=== PATIENT | female | born 1970 | race Caucasian/White ===

== ENCOUNTER 2017-05-11 16:59 | Inpatient (IN) | payer OTHER ==
[~2017-05-11] VITALS: Ht 165.1 cm; Wt 58.7 kg
[~2017-05-11 16:59] MED LIST: DOCU-144 PO; HYDR25SU23 PR; LEVO750T25 PO; Nicotine (14 Mg/24 Hr) TRANSDERM; THIA100T10 PO
[2017-05-11 20:40] VITALS: BP 139/85; PULSE 81; RESP 20
[2017-05-11 21:12] VITALS: Ht 165.1 cm; Wt 58.7 kg
[2017-05-11 22:14] VITALS: BP 139/85; RESP 20
[2017-05-11] MEDS ORDERED: LORAZEPAM 2 MG INJ IV PRN (22:30)
[2017-05-11] MEDS ORDERED: morphine 10 MG INJ IM PRN (22:30)
[2017-05-11] MEDS ORDERED: ONDANSETRON 4 MG INJ IV PRN (22:30)
[2017-05-11] MEDS: SOD CHLORIDE 0.9% 1,000 ML IV SCH (22:45)
[2017-05-12] MEDS ORDERED: NACL 0.9% 3 ML SYG IV SCH
[2017-05-12 01:42] LABS: ADD SCAN DIFF NO
[2017-05-12 01:45] LABS: BASOPHIL # 0.1 10^3/ul (0.0-0.1); BASOPHILS % 0.7 % (0.0-2.0); EOSINOPHILS # 0.3 10^3/ul (0.0-0.5); EOSINOPHILS % 3.4 % (0.0-7.0); HEMATOCRIT 28.5 % (37.0-47.0); HEMOGLOBIN 8.4 g/dl (12.0-16.0); LYMPHOCYTES # 1.8 10^3/ul (0.8-2.9); LYMPHOCYTES % 24.1 % (15.0-51.0); MEAN CORPUSCULAR HEMOGLOBIN 23.2 pg (29.0-33.0); MEAN CORPUSCULAR HGB CONC 29.5 g/dl (32.0-37.0); MEAN CORPUSCULAR VOLUME 78.7 fl (82.0-101.0); MEAN PLATELET VOLUME 9.9 fl (7.4-10.4); MONOCYTE # 0.4 10^3/ul (0.3-0.9); NEUTROPHILS % 66.5 % (39.0-77.0); PLATELET COUNT 245 10^3/UL (140-415); RED BLOOD COUNT 3.62 10^6/ul (4.20-5.40); RED CELL DISTRIBUTION WIDTH 21.4 % (11.5-14.5); WHITE BLOOD COUNT 7.5 10^3/ul (4.8-10.8)
[2017-05-12 02:13] LABS: ALBUMIN 3.6 g/dl (3.3-4.9); ALBUMIN/GLOBULIN RATIO 1.71; BILIRUBIN,INDIRECT 0.8 mg/dl (0-1.1); BILIRUBIN,TOTAL 0.8 mg/dl (0.2-1.3); CREATININE 0.58 mg/dl (0.44-1.00); POTASSIUM 3.8 mmol/L (3.5-5.1); TOTAL PROTEIN 5.7 g/dl (6.1-8.1)
[2017-05-12] MEDS: PANTOPRAZOLE 40 MG INJ IV SCH (05:07)
[2017-05-12] MEDS: SOD CHLORIDE 0.9% 1,000 ML IV SCH ×3 (05:08→18:30)
--- NOTE | 2017-05-12 05:21 | HP ---
Date/Time of Note Date/Time of Note DATE: 05/12/17 TIME: 05:05 Assessment/Plan VTE Prophylaxis VTE Prophylaxis Intervention: SCD's Lines/Catheters IV Catheter Type (from [facility]): Saline Lock Urinary Cath still in place: No Assessment/Plan Chief Complaint/Hosp Course This is a 46-year-old female [facility] for: #1 Acute pancreatitis: Patient had a lipase level of approximately 200, AST of 56 ALT of 45. With an ethanol level of 41. At the current time patient is still complaining of abdominal pain. We will keep the patient n.p.o. provide IV fluid hydration. Provide IV pain medications. #2 alcohol abuse: Currently patient has blood alcohol level of 41. We will put the patient on banana bag daily. Ativan 1 mg IV every 6 hours as needed for agitation. Will start Librium taper. Patient also has transaminitis on lab work. Will also check a liver ultrasound. #3 urinary tract infection: started on ceftriaxone however will switch to cipro IV secondary to pancreatitis. #4 microcytic anemia: Likely secondary to poor nutrition as well as possibly chronic disease. Will check iron level. Will check a stool guaiac. #5 emphysema: Patient has an extensive history of smoking. Will put patient on nicotine patch. #6 DVT GI prophylaxis: SCDs, Protonix Further treatment strategy will be implemented as per the clinical course. Problems: HPI/ROS Admit Date/Time Admit Date/Time May 11, 2017 at 20:33 Hx of Present Illness Chief complaint: Abdominal pain This is a 46 year female who was transferred from [facility] for pancreatitis and alcohol abuse. She is a past medical history of acquired deafness, chronic drug abuse, emphysema, EtOH abuse and pancreatitis. She presented to the ED at [facility] complaining of nausea vomiting abdominal pain after she had drank beer in the past 5 days. She was advised in the past not to drink alcohol and has been treated for pink otitis in the past. She reports experience in bilateral lower abdominal pain since yesterday evening constant nonradiating with no modifying or exacerbating factors. She reports every time she drinks she feels as though her insides are on fire. The symptoms are very similar to when she had in the past. When she was diagnosed pink otitis. She denied any fever chills cough congestion runny nose or diarrhea. Denied any melena denied weakness or numbness or tingling. Upon arriving to [facility], patient on my exam was still complaining of abdominal pain though she stated it did improve from earlier. She was asking for something to eat. Allergies: Apples, aspirin, haloperidol Medications: See VARGAS CHRISTINE Const: As per HPI Eyes : No pain discharge or redness or change in visual acuity ENT: No pain, sore throat, congestion, congestion, dysphagia or discharge Respiratory: No shortness of breath, cough, sputum, wheezing, or pleuritic pain Cardiovascular: No chest pain, palpitation, PND, or edema GI : As per HPI Genitourinary: No dysuria, hematuria, flank pain , discharge or CVA tenderness Musculoskeletal: No joint pain, back pain, neck pain, restricted range of motion in neck or joints Skin: No rash, bruising or hives Neuro: No headache, dizziness, syncope, seizure, focal weakness Endocrine: No polyuria, polydipsia, temperature intolerance Psych: No hallucination, depression, anxiety or suicidal ideation PMH/Family/Social Past Medical History Acquired deafness, chronic drug abuse, emphysema, alcohol abuse, pink otitis Past Surgical History Past Surgical Hx: no surgical history Family History Significant Family History: no pertinent family hx Social History Alcohol Use: heavy Smoking Status: Current every day smoker (2 packs per day 9 years) Exam/Review of Systems Vital Signs Vitals Vital Signs Date Time Temp Pulse Resp B/P Pulse Ox O2 Delivery O2 Flow Rate FiO2 05/11/17 22:14 98.4 81 20 139/85 92 05/11/17 20:40 Room Air Exam Exam General: Patient is well-developed female in mild distress from pain laying in bed. HEENT: Atraumatic, normocephalic. The pupils are equal, round and reactive. Extraocular motor are intact Neck: Supple with full range of motion. No rigidity or meningismus Chest: Nontender Lungs: Clear to auscultation bilaterally no crackles rales or wheezing Heart: Normal S1-S2, Regular rhythm and rate. No murmur, S3, or S4 Abdomen: Soft, tenderness to the epigastric area, normal bowel sounds Extremities: Normal to inspection, no edema no cyanosis Neurologic: Normal mental status, speech normal, patient is hard of hearing secondary to her deafness, she does not appear to be in any sort of alcohol withdrawal or DTS at this time. Additional Comments lipase level of approximately 200, AST of 56 ALT of 45. Ethanol level of 41. Nitrite and leukoesterase positive Hemoglobin of 10 with an MCV of 74. Urine drug screen was negative for cannabinoids cocaine and PCP please see transfer recommendation for further lab results and Other medical information Labs Result Diagram: 05/12/173105/12/17 003 Medications Medications Current Medications Morphine Sulfate 2 mg 2 mg Q4H PRN IM FOR PAIN; Start 05/11/17 at 22:30 Sodium Chloride (NS) 1,000 ml @ 150 mls/hr Q6H40M IV Last administered on 05/11t 22:45; Admin Dose 150 MLS/HR; Start 05/11/17 at 22:30 Lorazepam (Ativan) 1 mg Q4H PRN IV FOR AGITATION; Start 05/11/17 at 22:30 Ondansetron HCl 4 mg 4 mg Q6H PRN IV NAUSEA AND/OR VOMITING; Start 05/11/17 at 22:30 Multivitamins/ Thiamine HCl/ Folic Acid/Sodium Chloride (Mvi Adult/ Vitamin B1/ Folic Acid/NS) 1,011.2 ml @ 125 mls/ hr DAILY@09 IVPB ; Start 05/12/17 at 09:00 Pantoprazole (Protonix Iv) 40 mg DAILY@06 IV ; Start 05/12/17 at 06:00 REYNA RUSHING May 12, 2017 05:19
[2017-05-12] MEDS ORDERED: CEFTRIAXONE 1 GM/50 ML (PMX) 50 ML IVPB SCH (05:30)
[2017-05-12 06:42] LABS: ADD SCAN DIFF NO
[2017-05-12 06:48] LABS: BASOPHIL # 0.1 10^3/ul (0.0-0.1); BASOPHILS % 0.8 % (0.0-2.0); EOSINOPHILS # 0.3 10^3/ul (0.0-0.5); HEMATOCRIT 27.8 % (37.0-47.0); HEMOGLOBIN 8.3 g/dl (12.0-16.0); LYMPHOCYTES # 1.5 10^3/ul (0.8-2.9); LYMPHOCYTES % 22.2 % (15.0-51.0); MEAN CORPUSCULAR HEMOGLOBIN 23.2 pg (29.0-33.0); MEAN CORPUSCULAR HGB CONC 29.9 g/dl (32.0-37.0); MEAN CORPUSCULAR VOLUME 77.7 fl (82.0-101.0); MONOCYTE # 0.3 10^3/ul (0.3-0.9); MONOCYTES % 4.7 % (0.0-11.0); NEUTROPHIL # 4.5 10^3/ul (1.6-7.5); PLATELET COUNT 237 10^3/UL (140-415); RED BLOOD COUNT 3.58 10^6/ul (4.20-5.40); RED CELL DISTRIBUTION WIDTH 21.8 % (11.5-14.5); WHITE BLOOD COUNT 6.5 10^3/ul (4.8-10.8)
[2017-05-12] MEDS ORDERED: morphine 2 MG INJ IV PRN (07:00)
[2017-05-12 07:03] LABS: IRON 198 ug/dl (35-150)
[2017-05-12 07:07] LABS: ALBUMIN 3.5 g/dl (3.3-4.9); ALBUMIN/GLOBULIN RATIO 1.59; BILIRUBIN,INDIRECT 0.7 mg/dl (0-1.1); BILIRUBIN,TOTAL 0.7 mg/dl (0.2-1.3); CALCIUM 7.4 mg/dl (8.4-10.2); CHOL/HDL RATIO 1.4 RATIO; CREATININE 0.59 mg/dl (0.44-1.00); POTASSIUM 3.3 mmol/L (3.5-5.1); TOTAL PROTEIN 5.7 g/dl (6.1-8.1)
[2017-05-12 07:13] LABS: TOTAL IRON BINDING CAPACITY 308 ug/dl (241-421)
[2017-05-12 07:21] LABS: T3 UPTAKE 39.2 % (23.5-40.5)
[2017-05-12 07:35] LABS: THYROID STIMULATING HORMONE 2.77 MIU/L (0.465-4.680)
[2017-05-12 07:51] LABS: ETHANOL < 10.0 mg/dl
[2017-05-12 07:55] VITALS: BP 121/76; RESP 18
[2017-05-12] MEDS: MULTIVITAMINS 10 ML, THIAMINE 100 MG, FOLIC ACID 1 MG in SOD CHLORIDE 0.9% 1,000 ML IVPB SCH (08:57)
[2017-05-12] MEDS: CHLORDIAZEPOXIDE 25 MG CAP PO SCH ×3 (09:09→21:46)
--- NOTE | 2017-05-12 09:13 | PN ---
Date/Time of Note Date/Time of Note DATE: 05/12/17 TIME: 09:11 Assessment/Plan VTE Prophylaxis VTE Prophylaxis Intervention: SCD's Lines/Catheters IV Catheter Type (from [facility]): Peripheral IV Urinary Cath still in place: No Assessment/Plan Assessment/Plan This is a 46-year-old female transferred from outside with #1 Acute alcoholic pancreatitis: improved / lipase normal now #2 alcohol abuse/ transaminitis: cessation reviewed #3 urinary tract infection #4 microcytic anemia: Likely secondary to poor nutrition as well as possibly chronic disease. #5 emphysema: Patient has an extensive history of smoking. Patient on nicotine patch. PLAN: * patient's pain is likely exaggerated, the fact that she's hungry is consistent with improving pancreatitis, will advance diet gently to clears * continue to reinforce alcohol cessation in house * Continue supportive care / abx Further treatment strategy will be implemented as per the clinical course. Subjective 24 Hr Interval Summary Free Text/Dictation Patient seen and examined. was sleeping deeply and when aroused c/o pain 07/11, yet asking to eat Exam/Review of Systems Vital Signs Vitals Vital Signs Date Time Temp Pulse Resp B/P Pulse Ox O2 Delivery O2 Flow Rate FiO2 05/12/17 07:55 98.7 63 18 121/76 97 05/11/17 20:40 Room Air Intake and Output 05/11/17 05/11/17 05/12/17 15:00 23:00 07:00 Intake Total 1440 ml Balance 1440 ml Exam Constitutional: alert, oriented Psych: nl mood/affect Head: atraumatic, normocephalic ENMT: mucosa pink and moist Neck: supple Respiratory: clear to auscultation Cardiovascular: nl pulses, regular rate and rhythm Gastrointestinal: bowel sounds, soft, tender (?, non localized) Neurological: nl mental status, No focal weakness Results Result Diagram: 05/12/17 0610 05/12/17 0610 Results 24 hrs Laboratory Tests Test 05/12/17 00:32 05/12/17 06:10 White Blood Count 7.5 # 6.5 Red Blood Count 3.62 L 3.58 L Hemoglobin 8.4 L 8.3 L Hematocrit 28.5 L 27.8 L Mean Corpuscular Volume 78.7 L 77.7 L Mean Corpuscular Hemoglobin 23.2 L 23.2 L Mean Corpuscular Hemoglobin Concent 29.5 L 29.9 L Red Cell Distribution Width 21.4 H 21.8 H Platelet Count 245 237 Mean Platelet Volume 9.9 10.0 Neutrophils % 66.5 68.0 Lymphocytes % 24.1 22.2 Monocytes % 5.0 4.7 Eosinophils % 3.4 4.0 Basophils % 0.7 0.8 Nucleated Red Blood Cells % 0.0 0.0 Neutrophils # 5.0 4.5 Lymphocytes # 1.8 1.5 Monocytes # 0.4 0.3 Eosinophils # 0.3 0.3 Basophils # 0.1 0.1 Nucleated Red Blood Cells # 0.0 0.0 Sodium Level 130 L 133 L Potassium Level 3.8 3.3 L Chloride Level 103 106 Carbon Dioxide Level 26 24 Anion Gap 5 L 6 L Blood Urea Nitrogen 7 6 L Creatinine 0.58 0.59 Glucose Level 64 L 75 Calcium Level 8.0 L 7.4 L Total Bilirubin 0.8 0.7 Direct Bilirubin 0.00 0.00 Indirect Bilirubin 0.8 0.7 Aspartate Amino Transf (AST/SGOT) 38 36 Alanine Aminotransferase (ALT/SGPT) 33 38 Alkaline Phosphatase 53 52 Total Protein 5.7 L 5.7 L Albumin 3.6 3.5 Globulin 2.10 2.20 Albumin/Globulin Ratio 1.71 1.59 Lipase 106 79 Hemoglobin A1c 5.1 Iron Level 198 H Total Iron Binding Capacity 308 Percent Iron Saturation 64 H Ferritin 11.5 Triglycerides Level 53 Cholesterol Level 127 LDL Cholesterol, Calculated 27 HDL Cholesterol 89 H Cholesterol/HDL Ratio 1.4 Thyroid Stimulating Hormone (TSH) 2.770 Free Thyroxine Index 2.47 Thyroxine (T4) 6.3 Triiodothyronine (T3) Uptake 39.2 Ethyl Alcohol Level < 10.0 Medications Medications Current Medications Sodium Chloride (NS) 1,000 ml @ 150 mls/hr Q6H40M IV Last administered on 05/12 05:08; Admin Dose 150 MLS/HR; Start 05/11/17 at 22:30 Lorazepam (Ativan) 1 mg Q4H PRN IV FOR AGITATION; Start 05/11/17 at 22:30 Ondansetron HCl 4 mg 4 mg Q6H PRN IV NAUSEA AND/OR VOMITING; Start 05/11/17 at 22:30 Multivitamins/ Thiamine HCl/ Folic Acid/Sodium Chloride (Mvi Adult/ Vitamin B1/ Folic Acid/NS) 1,011.2 ml @ 125 mls/ hr DAILY@09 IVPB Last administered on 08:57; Admin Dose 125 MLS/HR; Start 05/12/17 at 09:00 Pantoprazole 40 mg 40 mg DAILY@06 IV Last administered on 05/12/17 05:07; Admin Dose 40 MG; Start 05/12/17 at 06:00 Ceftriaxone Sodium (Rocephin) 50 ml @ 100 mls/hr Q24H IVPB Last administered on 05/12/17 05:37; Admin Dose 100 MLS/HR; Start 05/12/17 at 05:30 Morphine Sulfate (morphine) 2 mg Q4H PRN IV FOR PAIN; Start 05/12/17 at 07:00 Chlordiazepoxide (Librium) 50 mg TID PO ; Start 05/12/17 at 09:00; Stop at 21:01 Chlordiazepoxide (Librium) 25 mg QID PO ; Start 05/13/17 at 09:00; Stop at 21:01 Chlordiazepoxide (Librium) 25 mg TID PO ; Start 05/14/17 at 09:00 BONNIE STARK May 12, 2017 09:13
--- NOTE | 2017-05-12 10:07 | RADRPT ---
PROCEDURE: US Abdomen (right upper quadrant). CLINICAL INDICATION: Elevated LFTs. Only views. TECHNIQUE: Multiple real-time longitudinal and transverse images of the right upper quadrant of th e abdomen were acquired utilizing a curved array transducer. Images were reviewed on a high-resoluti on PACS workstation. COMPARISON: None FINDINGS: The liver is normal in size and slightly increased echogenicity without focal mass or intrahepatic b iliary dilatation. There is trace ascites. Portal vein is patent with appropriate direction of flow . The gallbladder is remarkable for multiple no mobile echogenic foci along the gallbladder wall in keeping with gallbladder polyps. The largest measures up to 0.4 cm. There is no pericholecystic fl uid or gallbladder wall thickening or gallstones. No intra or extrahepatic biliary dilatation is se en. The common bile duct measures 3 mm mm in maximal dimension. The visualized portions of the simpson creas are unremarkable with obscuration of the tail of the pancreas. No free fluid is identified. The right kidney measures 10.3 cm in length. There is normal echogenicity within the right kidney. There is no perinephric fluid collection. No hydronephrosis, mass, or calculus is seen. IMPRESSION: 1. Mild fatty infiltration of the liver. 2. Multiple small gallbladder polyps. 3. No intrahepatic or extrahepatic biliary ductal dilatation. 4. Trace perihepatic fluid. RPTAT: BB .Maik Gagnon MD, Date Time Electronically viewed and signed by .Maik Gagnon MD, on 05/12/2017 10:07 .O/
[2017-05-12] MEDS ORDERED: POTASSIUM CHLORIDE 250 ML IVPB ONE (10:30)
[2017-05-12] MEDS ORDERED: MAGNESIUM SULFATE 2 GM/50 ML 50 ML IVPB ONE (17:00)
[2017-05-12 20:00] VITALS: BP 142/63; PULSE 64; RESP 18
[2017-05-12 20:50] VITALS: BP 115/73; RESP 18
[2017-05-12] MEDS: CIPROFLOXACIN 400MG/D5W 200 ML IVPB SCH (22:06)
[2017-05-13] MEDS: SOD CHLORIDE 0.9% 1,000 ML IV SCH ×2 (01:10→03:32)
[2017-05-13 02:00] VITALS: BP 107/65; PULSE 76; RESP 19
[2017-05-13 02:18] VITALS: BP 131/65; RESP 18
[2017-05-13 05:18] LABS: ADD SCAN DIFF NO
[2017-05-13 05:22] LABS: BASOPHILS % 0.7 % (0.0-2.0); EOSINOPHILS # 0.4 10^3/ul (0.0-0.5); EOSINOPHILS % 5.9 % (0.0-7.0); HEMATOCRIT 30.5 % (37.0-47.0); LYMPHOCYTES # 1.6 10^3/ul (0.8-2.9); LYMPHOCYTES % 27.4 % (15.0-51.0); MEAN CORPUSCULAR HEMOGLOBIN 23.3 pg (29.0-33.0); MEAN CORPUSCULAR HGB CONC 29.5 g/dl (32.0-37.0); MEAN PLATELET VOLUME 9.8 fl (7.4-10.4); MONOCYTE # 0.3 10^3/ul (0.3-0.9); MONOCYTES % 4.8 % (0.0-11.0); NEUTROPHIL # 3.7 10^3/ul (1.6-7.5); PLATELET COUNT 228 10^3/UL (140-415); RED BLOOD COUNT 3.86 10^6/ul (4.20-5.40); RED CELL DISTRIBUTION WIDTH 21.6 % (11.5-14.5)
[2017-05-13] MEDS: PANTOPRAZOLE 40 MG INJ IV SCH (06:07)
[2017-05-13 06:17] LABS: ALBUMIN 3.5 g/dl (3.3-4.9); ALBUMIN/GLOBULIN RATIO 1.59; BILIRUBIN,INDIRECT 0.1 mg/dl (0-1.1); BILIRUBIN,TOTAL 0.1 mg/dl (0.2-1.3); CALCIUM 7.8 mg/dl (8.4-10.2); CREATININE 0.57 mg/dl (0.44-1.00); MAGNESIUM 1.9 mg/dl (1.7-2.5); POTASSIUM 3.4 mmol/L (3.5-5.1); TOTAL PROTEIN 5.7 g/dl (6.1-8.1)
[2017-05-13 07:59] VITALS: BP 126/65; RESP 18
[2017-05-13] MEDS: CIPROFLOXACIN 400MG/D5W 200 ML IVPB SCH (08:47)
[2017-05-13] MEDS ORDERED: CHLORDIAZEPOXIDE 25 MG CAP PO SCH (09:00)
[2017-05-13] MEDS: MULTIVITAMINS 10 ML, THIAMINE 100 MG, FOLIC ACID 1 MG in SOD CHLORIDE 0.9% 1,000 ML IVPB SCH (10:18)
[2017-05-13] MEDS ORDERED: FOLI-49 PO (11:21)
[2017-05-13] MEDS ORDERED: MULTI PO (11:21)
[2017-05-13] MEDS ORDERED: CIPR500T4 PO (11:21)
[2017-05-13] MEDS ORDERED: MAGNESIUM SULFATE 1 GM/D5W 100 ML IVPB ONE (12:30)
[2017-05-13] MEDS ORDERED: POTASSIUM CHLORIDE 250 ML IVPB ONE (12:30)
[2017-05-13] MEDS ORDERED: POTASSIUM CHLORIDE (SR) 20 MEQ TAB PO STA (12:39)
--- NOTE | 2017-05-13 12:47 | PDOCDIS ---
Discharge Instructions DIAGNOSIS Discharge Diagnosis Alcoholic pancreatitis UTI CONDITION Patient Condition: Stable HOME CARE INSTRUCTIONS: Special Diet: Soft Diet FOLLOW UP/APPOINTMENTS Follow-up Plan Followup with your primary doctor within the next 1-2 weeks. If you don't have one please let someone know, we can give you resources that may help you pick one. You may call Dr Raymond Vazquez's office. he's accepting new patients Name, Degree: Raymond Vazquez MD Specialty: Internal Medicine Comments: Office Address: [address] [place] [address] [place] [id number] Office Office You may also call your insurance company to assign one to you. Review your medication list with your nurse before leaving and if you need new prescriptions please let your nurse know. I may have made changes to your home medications or given you new prescriptions, please let your primary doctor know as well. Stay compliant with your medications and report any side effects to your PCP or pharmacist. Return to the ER if you have any concerns and cannot reach your doctors or call your insurance company, they usually have a nurse that can help you. OTHER ORDERS: Other Orders: You CANNOT drink any more alcohol. If you have already stopped, Good for you!!! . It is however an ongoing process. Further alcohol use will only worsen you pancreas and / or your liver. You should have been given resources to help you with quitting alcohol, if not please let someone know before you leave. Please use these resources and contact us or your PCP if you still have questions or concerns. BONNIE STARK May 13, 2017 12:47
[2017-05-13] MEDS ORDERED: MAGNESIUM OXIDE 400 MG TAB PO ONE (13:00)
--- NOTE | 2017-05-13 15:40 | DS ---
Date/Time of Note Date/Time of Note DATE: 05/13/17 TIME: 15:29 Discharge Summary Admission/Discharge Info Admit Date/Time May 11, 2017 at 20:33 Discharge Date/Time May 13, 2017 at 13:15 Discharge Diagnosis Alcoholic pancreatitis UTI Alcohol and tobacco abuse [place] COPD / Emphysema Hypochromic Microcytic anemia without Iron deficiency likely 2/2 poor nutrition . Patient Condition: Stable Hx of Present Illness Chief complaint: Abdominal pain This is a 46 year female who was transferred from [facility] for pancreatitis and alcohol abuse. She is a past medical history of acquired deafness, chronic drug abuse, emphysema, EtOH abuse and pancreatitis. She presented to the ED at [facility] complaining of nausea vomiting abdominal pain after she had drank beer in the past 5 days. She was advised in the past not to drink alcohol and has been treated for pink otitis in the past. She reports experience in bilateral lower abdominal pain since yesterday evening constant nonradiating with no modifying or exacerbating factors. She reports every time she drinks she feels as though her insides are on fire. The symptoms are very similar to when she had in the past. When she was diagnosed pancreatitis. She denied any fever chills cough congestion runny nose or diarrhea. Denied any melena denied weakness or numbness or tingling. Upon arriving to [facility], patient on my exam was still complaining of abdominal pain though she stated it did improve from earlier. She was asking for something to eat. Allergies: Apples, aspirin, haloperidol Medications: See MAR . Hospital Course Patient was admitted and treated for pancreatitis with IVF , pain control and NPO. She did well and her diet was advanced slowly and she is currently tolerating a soft diet. She was also found to have a UTI and treated with antibiotics. She was counselled on the dangers of continued alcohol and tobacco use and provided with resources to help with cessation. She has been found to be stable for discharge at this time. . Home Meds Active Scripts Ciprofloxacin Hcl* (Ciprofloxacin Hcl*) 500 Mg Tablet, 500 MG PO BID for 3 Days , TAB Prov:BONNIE STARK. 05/13/17 Folic Acid* (Folic Acid*) 1 Mg Tablet, 1 MG PO DAILY for 30 Days, TAB Prov:BONNIE STARK. 05/13/17 Multivitamins* (Theragran*) 1 Tab Tab, 1 TAB PO DAILY for 30 Days, TAB Prov:BONNIE STARK 05/13/17 Thiamine* (Thiamine*) 100 Mg Tablet, 100 MG PO DAILY for 30 Days, #30 TAB 6 Refills Prov:JAVON CAMILO MD 10/31/16 [Nicotine (14 Mg/24 Hr)] 1 PATCH PATCH No Conflict Check, 1 PATCH TRANSDERM DAILY for 1 Day, #1 3 Refills OTC; as needed for nicotine withdrawal Prov:JAVON CAMILO MD 10/31/16 Discontinued Scripts Hydrocortisone Acetate (Anusol-Hc) 25 Mg Supp.rect, 25 MG OR BID Y for CONSTIPATION for 10 Days, #10 SUPP.RECT 4 Refills Prov:JAVON CAMILO MD 10/31/16 Docusate Sodium* (Colace*) 100 Mg Capsule, 100 MG PO BID for 14 Days, #30 CAP 3 Refills Prov:JAVON CAMILO MD 10/31/16 Levofloxacin* (Levaquin*) 750 Mg Tablet, 750 MG PO DAILY for 5 Days, TAB Prov:ELINOR DAVENPORT 05/13/16 Follow-up Plan Patient is counselled to f/u with PCP to ensure continued resolution of symptoms and continued help with alcohol and tobacco abuse. . Primary Care Provider Not On Staff Doctor Time spent on discharge: > 30 minutes Pending Labs Laboratory Tests Test 05/13/17 04:53 White Blood Count 6.010^3/ul (4.8-10.8) Red Blood Count 3.8610^6/ul (4.20-5.40) Hemoglobin 9.0g/dl (12.0-16.0) Hematocrit 30.5% (37.0-47.0) Mean Corpuscular Volume 79.0fl (82.0-101.0) Mean Corpuscular Hemoglobin 23.3pg (29.0-33.0) Mean Corpuscular Hemoglobin Concent 29.5g/dl (32.0-37.0) Red Cell Distribution Width 21.6% (11.5-14.5) Platelet Count 97062^3/UL (140-415) Mean Platelet Volume 9.8fl (7.4-10.4) Neutrophils % 61.0% (39.0-77.0) Lymphocytes % 27.4% (15.0-51.0) Monocytes % 4.8% (0.0-11.0) Eosinophils % 5.9% (0.0-7.0) Basophils % 0.7% (0.0-2.0) Nucleated Red Blood Cells % 0.0/100WBC (0.0-0.0) Neutrophils # 3.710^3/ul (1.6-7.5) Lymphocytes # 1.610^3/ul (0.8-2.9) Monocytes # 0.310^3/ul (0.3-0.9) Eosinophils # 0.410^3/ul (0.0-0.5) Basophils # 0.010^3/ul (0.0-0.1) Nucleated Red Blood Cells # 0.010^3/ul (0.0-0.0) Sodium Level 133mmol/L (135-144) Potassium Level 3.4mmol/L (3.5-5.1) Chloride Level 109mmol/L (97-110) Carbon Dioxide Level 24mmol/L (21-31) Anion Gap 3 (8-16) Blood Urea Nitrogen 3mg/dl (7-20) Creatinine 0.57mg/dl (0.44-1.00) Glucose Level 84mg/dl (70-220) Calcium Level 7.8mg/dl (8.4-10.2) Magnesium Level 1.9mg/dl (1.7-2.5) Total Bilirubin 0.1mg/dl (0.2-1.3) Direct Bilirubin 0.00mg/dl (0.00-0.20) Indirect Bilirubin 0.1mg/dl (0-1.1) Aspartate Amino Transf (AST/SGOT) 30IU/L (15-46) Alanine Aminotransferase (ALT/SGPT) 35IU/L (13-69) Alkaline Phosphatase 53IU/L (42-121) Total Protein 5.7g/dl (6.1-8.1) Albumin 3.5g/dl (3.3-4.9) Globulin 2.20g/dl (1.3-3.2) Albumin/Globulin Ratio 1.59 BONNIE STARK May 13, 2017 15:40
[2017-05-14] MEDS ORDERED: CHLORDIAZEPOXIDE 25 MG CAP PO SCH (09:00)
== END 2017-05-13 13:15 | disposition home or self-care (01) | DRG 439 ==
LOC: MS2 20:33
PROVIDERS: ADMIT Internal Medicine; ATTEND Internal Medicine
DX: K85.20 Alcohol induced acute pancreatitis without necrosis or infection (principal); N39.0 Urinary tract infection, site not specified; J43.9 Emphysema, unspecified; F10.10 Alcohol abuse, uncomplicated; D53.9 Nutritional anemia, unspecified; H91.90 Unspecified hearing loss, unspecified ear; Z72.0 Tobacco use; Y90.2 Blood alcohol level of 40-59 mg/100 ml
CPT/HCPCS: 76705; 80053; 80061; 80306; 82728; 83036; 83540; 83690; 83735; 84436; 84443; 84466; 84479; 85025; 87081; C9113; J0696; J0744; J2270; J3411; J3475; J3480; J7030

== ENCOUNTER 2018-03-08 21:56 | Inpatient (IN) | END 2018-03-11 16:03 | disposition home or self-care (01) | DRG 603 ==

== ENCOUNTER 2018-03-30 07:14 | Emergency (ER) | END 2018-03-30 09:41 | disposition home or self-care (01) ==

== ENCOUNTER 2019-02-11 22:09 | Inpatient (IN) | payer OTHER ==
[~2019-02-11] VITALS: Ht 165.1 cm; Wt 46.9 kg
[2019-02-12] VITALS (11 sets, daily range): BP systolic 101–131; BP diastolic 62–89; PULSE 60–84; RESP 17–19; Ht 165.1 cm; Wt 46.9 kg
[2019-02-12] MEDS ORDERED: ALBUTEROL/IPRATROPIUM (NEB) 3 ML AMP HHN PRN (02:30)
[2019-02-12] MEDS ORDERED: ONDANSETRON 4 MG INJ IV PRN (02:30)
[2019-02-12] MEDS ORDERED: NACL 0.9% 3 ML SYG IV SCH (02:30)
[2019-02-12] MEDS ORDERED: NITROGLYCERIN (SL) 0.4 MG TAB SL PRN (02:30)
[2019-02-12] MEDS ORDERED: METHYLPREDNISOLONE 125 MG INJ IV ONE (02:30)
[2019-02-12] MEDS ORDERED: ACETAMINOPHEN 325 MG TAB PO PRN (02:30)
[2019-02-12] MEDS: HYDROCODONE/APAP (5/325) TAB PO PRN ×2 (02:31→19:08)
--- NOTE | 2019-02-12 04:59 | HP ---
Date/Time of Note Date/Time of Note DATE: 02/12/19 TIME: 04:47 Assessment/Plan VTE Prophylaxis SCD contraindicated: low risk/ambulating Pharmacological prophylaxis: NA/contraindicated Pharm contraindication: bleeding, other (Patient reported hematemesis and b loody stool) Assessment/Plan Assessment/Plan 1. COPD exacerbation -Supplemental oxygen, bronchodilators, steroid -Antibiotic for a few days given reported cough productive of greenish sputum -Respiratory culture -Obtain chest x-ray 2. Syncope -Obtain EKG and a 2D echo -On a net application architect, which shows PACs -Serial troponins -See #3 for a possible cause of syncope 3. Hematemesis x 1 and bloody stools. -EGD in 2017 shows moderate gastritis and esophagitis -PPI -GI consult 4. Chest pain: Only associated with coughing -Troponin was negative at the outside facility -See #2 5. Deafness: Supportive care HPI/ROS Admit Date/Time Admit Date/Time Feb 12, 2019 at 00:19 Hx of Present Illness This is a 48-year-old female who has been completely deaf for the past 5 years, with a history of COPD, moderate gastritis/esophagitis, moderate mitral regurg, previous history of alcohol abuse who initially presented to an outside hospital complaining of cough, shortness of breath, chest pain, vomiting, dizziness and fainting. Patient was transferred to [facility] for insurance reason. Chest pain only occurs when she coughs. She also reported that she has been feeling dizzy and have been occasionally passing out. On further questioning, she said she has been vomiting and then noticed bright red blood yesterday. She also reported bloody stool. Patient had an EGD in November 2016 which showed moderate gastritis and esophagitis. She said that she was told about colonoscopy, but she never had it. At the outside facility, troponin was negative and EKG without ST-T wave abnormalities. Hemoglobin was 9.6. PMH/Family/Social Past Medical History Medical History: other (See HPI) Medications Current Medications IV Flush (NS 3 ml) 3 ml PER PROTOCOL IV ; Start 02/12/19 at 02:30 Ondansetron HCl (Zofran Inj) 4 mg Q6H PRN IV NAUSEA/VOMITING; Start 02/12/19 at 02:30 Nitroglycerin (Nitroglycerin (Sl Tab) 0.4 Mg) 1 tab Q5M PRN SL .CHEST PAIN; Start 02/12/19 at 02:30 Acetaminophen (Tylenol Tab) 650 mg Q6H PRN PO .PAIN 1-3 OR TEMP; Start 02/12/19 at 02:30 Acetaminophen/ Hydrocodone Bitart (Celeste (5/325)) 1 tab Q6H PRN PO .PAIN 4-6 Last administered on 02/12/19at 02:31; Admin Dose 1 TAB; Start 02/12/19 at 02:30 Albuterol/ Ipratropium (Duoneb) 3 ml Q2H RESP THERAPY PRN HHN SHORTNESS OF BREATH; Start 02/12/19 at 02:30 Pantoprazole (Protonix Iv) 40 mg BID@06,18 IV ; Start 02/12/19 at 06:00 Coded Allergies: Iodinated Contrast- Oral and IV Dye (Verified Allergy, Severe, SOB, 02/12/19) apple (Verified Allergy, Severe, ANALPHYLAXIS, 03/30/18) aspirin (Verified Allergy, Severe, RESP DISTRESS "IT ALMOST KILLED ME", 03/30/18) haloperidol (Verified Allergy, Intermediate, 03/30/18) Past Surgical History Past Surgical Hx: other (See HPI) Family History Significant Family History: no pertinent family hx Social History Alcohol Use: other (Used to drink heavily in the past, now occasionally) Smoking Status: Current every day smoker Drug Use: none Exam/Review of Systems Vital Signs Vitals Vital Signs Date Temp Pulse Resp B/P (MAP) Pulse Ox O2 O2 Flow FiO2 Time Delivery Rate 02/12/19 67 04:36 02/12/19 98.2 17 131/71 96 03:59 (91) Exam Constitutional: other (No acute distress. Patient is deaf, but able to communicate with writing. She is also good at reading lips) Head: normocephalic, atraumatic Eyes: PERRL ENMT: other (There is a small lesion on the chin) Respiratory: clear to auscultation, normal air movement Cardiovascular: regular rate and rhythm Gastrointestinal: soft, other (Minimal tenderness in the epigastric area. No guarding, no rebound tenderness, no rigidity) Extremities: normal pulses KELI WILKINSON MD Feb 12, 2019 04:58
[2019-02-12] MEDS: PANTOPRAZOLE 40 MG INJ IV SCH ×2 (05:58→17:43)
[2019-02-12] MEDS ORDERED: HEPARIN 5,000 UNIT/1 ML VIAL SC SCH (09:00)
--- NOTE | 2019-02-12 09:58 | QN ---
Documentation Comment This is a 48-year-old female who is also deaf bilaterally, with tobacco use 1 PPD, daily alcohol use, history of gastritis/esophagitis, COPD, transferred from outside hospital where she initially presented with cough, shortness of breath, dizziness, ongoing rectal bleed. History obtained from patient and I communicated with patient in writings. Patient with fairly stable hemoglobin. She complains of bright bloody stool which has been going on for a while. Patient with no further episodes of syncopal/dizziness experiences. At this time, we will follow-up on imaging studies ordered for syncopal workup. I will also order IV iron and will add an iron panel to a.m. labs. We will also request gastroenterology consultation for considering patient for colonoscopy evaluation in light of patient's ongoing rectal bleed, unintentional weight loss, poor appetite. Unlikely this will happen today, also patient is on a diet. She currently does not have any bleedi ng. Go ahead with a CT abd/pelvis w/wo contrast. I will also add a CEA to a.m. labs. Patient had upper endoscopy in 2017 and pathology was negative. We will continue monitoring H&H and will transfuse if indicated. Patient was counseled on smoking/alcohol cessation. Case discussed with Dr. Gimenez. SEPIDEH LEWIS NP Feb 12, 2019 09:58
[2019-02-12] MEDS: NICOTINE (21 MG/24 HR) PATCH TRANSDERM SCH (10:00)
[2019-02-12] MEDS: TIOTROPIUM 18 MCG CAPSULE INHA DEV INH SCH (11:05)
[2019-02-12] MEDS: SOD FERRIC GLUC COMPLX 125 MG in SOD CHLORIDE 0.9% 100 ML IVPB SCH (12:10)
--- NOTE | 2019-02-12 13:32 | CONS ---
Assessment/Plan Assessment/Plan Hospital Course (Demo Recall) Summary Assessment and Plan: Assessment: Hematemesis BRBPR Normocytic anemia COPD/emphysema- exacerbation Bilateral deafness Syncope Chest pain- Only with coughing - Trop x2 neg Plan: Ct abd;pevlis pending Clear liquid diet - NPO after 02/13/19 0800 Tentative plan for EGD/colonoscopy tomorrow- pending medical clearance Endoscopy - risks/benefits/alternatives/indications of procedure and s edation/anesthesia discussed with patient who states understanding and gives informed consent to proceed. Patient seen in collaboration with Dr. Jones CC: MEGAN JONES ; Consultation Date/Type/Reason Admit Date/Time Feb 12, 2019 at 00:19 Date of Consultation: Feb 12, 2019 Type of Consult GI Reason for Consultation Rectal bleeding/ Hematemesis Date/Time of Note DATE: 02/12/19 TIME: 13:19 Hx of Present Illness This is a 48-year-old female with past medical history of COPD/emphysema, bilateral deafness, mitral valve regurgitation, moderate gastritis esophagitis, and documented previous history of alcohol abuse who presented to an outside hospital with complaints of shortness of breath, chest pain, syncope and hematemesis. She was transferred to [facility] for insurance reasons. Here patient also complained of bright red blood per rectum progressive times the past 3 months she has been consulted for further evaluation. In regards to cardiac workup patient has been evaluated by troponin levels x2 have been negative thus far other cardiac enzymes are also negative carotid Doppler study was obtained showing no evidence of significant stenosis to the right or left internal carotid artery and normal antegrade of flow in the vertebral arteries bilaterally and a CT abdomen pelvis with contrast has been ordered and is currently pending a CTA was completed and is negative. Patient is noted to have normocytic anemia. An EKG and 2D echo have been ordered. Additionally labs show an elevated lipase. Currently patient denies nausea/vomiting she complains of upper abdominal pain about a 2 out of 10 and lower abdominal pain with palpation, . She states she is previously had an upper endoscopy here as well as a colonoscopy both of these views procedures were ablated on 10/30/16. Colonoscopy showed moderate-sized internal hemorrhoids otherwise normal to the cecum. EGD was completed showing distal esophagitis, moderate as well as moderate gastritis biopsies were obtained and were negative. She states she has had a 5 pound weight loss over the past few months she is unsure about family history of patient states she is adopted. Socially patient states she drinks about 224 ounce beers daily been doing so for the past 10 years off and on, and smokes 1 pack of cigarettes per day for the past 10 years, she denies any drug use. Review of Systems: A 12 system, review was conducted and is negative except as noted in the HPI or here. Past Medical History Medical History: other (See HPI) Home Meds No Active Prescriptions or Reported Meds Medications Current Medications IV Flush (NS 3 ml) 3 ml PER PROTOCOL IV ; Start 02/12/19 at 02:30 Ondansetron HCl (Zofran Inj) 4 mg Q6H PRN IV NAUSEA/VOMITING; Start 02/12/19 at 02:30 Nitroglycerin (Nitroglycerin (Sl Tab) 0.4 Mg) 1 tab Q5M PRN SL .CHEST PAIN; Start 02/12/19 at 02:30 Acetaminophen (Tylenol Tab) 650 mg Q6H PRN PO .PAIN 1-3 OR TEMP; Start 02/12/19 at 02:30 Acetaminophen/ Hydrocodone Bitart ([place] (5/325)) 1 tab Q6H PRN PO .PAIN 4-6 Last administered on 02/12/19at 02:31; Admin Dose 1 TAB; Start 02/12/19 at 02:30 Albuterol/ Ipratropium (Duoneb) 3 ml Q2H RESP THERAPY PRN HHN SHORTNESS OF BREATH; Start 02/12/19 at 02:30 Pantoprazole (Protonix Iv) 40 mg BID@06,18 IV Last administered on 02/12/19at 05:58; Admin Dose 40 MG; Start 02/12/19 at 06:00 Ferric Sodium Gluconate Complex 125 mg/Sodium Chloride 100 ml @ 100 mls/hr DAILY@1300 IVPB Last administered on 02/12/19at 12:10; Admin Dose 100 MLS/HR; Start 02/12/19 at 13:00; Stop 02/14/19 at 13:59 Tiotropium [place] (Spiriva) 1 inh DAILY INH Last administered on 02/12/19at 11:05; Admin Dose 1 INH; Start 02/12/19 at 11:00 Nicotine (Nicoderm 21 Mg/ 24hr) 1 patch DAILY TRANSDERM ; Start 02/12/19 at 10:00 Allergies: Coded Allergies: Iodinated Contrast- Oral and IV Dye (Verified Allergy, Severe, SOB, 02/12/19) apple (Verified Allergy, Severe, ANALPHYLAXIS, 03/30/18) aspirin (Verified Allergy, Severe, RESP DISTRESS "IT ALMOST KILLED ME", 03/30/18) haloperidol (Verified Allergy, Intermediate, 03/30/18) Past Surgical History Past Surgical Hx: other (See HPI) Social History Alcohol Use: other (Used to drink heavily in the past, now drinks 2 24 oz beers daily off and on) Smoking Status: Current every day smoker (1 pack per day) Drug Use: none Exam/Review of Systems Exam Vitals Vital Signs Date Temp Pulse Resp B/P (MAP) Pulse Ox O2 O2 Flow FiO2 Time Delivery Rate 02/12/19 63 12:00 02/12/19 98.2 18 101/63 99 11:16 (76) Intake and Output 02/11/19 02/11/19 02/12/19 1515:00 23:00 07:00 IntakeIntake Total 480 ml OutputOutput Total 1 ml BalanceBalance 479 ml Exam PHYSICAL EXAMINATION: GENERAL: Alert & oriented x 3, in no acute distress SKIN: Sores to patients mouth. EYES: Pupils equal reactive to light, no discharge. EARS/NOSE AND THROAT: Ears normal, nose normal, oropharynx normal. NECK: Supple, no masses. CHEST: Inspection within normal limits. CARDIOVASCULAR: Heart: Regular rate and rhythm RESPIRATORY: Lungs clear to auscultation GASTROINTESTINAL AND LIVER: Abdomen: Soft, non tenderness, non-distended, no hernias, no masses, no organomegaly, no ascites, no guarding, no rebound tende rness, normoactive bowel sounds. Rectal: Deferred. EXTREMITIES: No cyanosis, clubbing or edema. Results Result Diagram: 02/12/19 1104 02/12/19 0530 Results 24hrs Laboratory Tests Test 02/12/19 05:30 02/12/19 08:50 02/12/19 11:04 White Blood Count 3.3 #L Red Blood Count 3.62 L Hemoglobin 9.1 L 9.3 L Hematocrit 30.2 L 30.5 L Mean Corpuscular Volume 83.4 Mean Corpuscular Hemoglobin 25.1 L Mean Corpuscular Hemoglobin Concent 30.1 L Red Cell Distribution Width 21.2 H Platelet Count 213 # Mean Platelet Volume 10.6 H Immature Granulocytes % 0.600 H Neutrophils % 81.9 H Lymphocytes % 13.6 L Monocytes % 2.1 Eosinophils % 0.6 Basophils % 1.2 Nucleated Red Blood Cells % 0.0 Immature Granulocytes # 0.020 Neutrophils # 2.7 Lymphocytes # 0.5 L Monocytes # 0.1 L Eosinophils # 0.0 Basophils # 0.0 Nucleated Red Blood Cells # 0.0 Sodium Level 137 Potassium Level 3.9 Chloride Level 108 Carbon Dioxide Level 21 Anion Gap 8 Blood Urea Nitrogen 8 Creatinine 0.53 Est Glomerular Filtrat Rate mL/min > 60 Glucose Level 86 Calcium Level 8.8 Magnesium Level 2.3 Total Bilirubin 0.5 Direct Bilirubin 0.00 Indirect Bilirubin 0.5 Aspartate Amino Transf (AST/SGOT) 112 H Alanine Aminotransferase (ALT/SGPT) 58 Alkaline Phosphatase 77 Creatine Kinase 63 54 Creatine Kinase Index 1.3 1.0 Creatinine Kinase MB (Mass) 0.84 0.53 Troponin I < 0.012 < 0.012 Total Protein 6.5 Albumin 3.5 Globulin 3.00 Albumin/Globulin Ratio 1.16 Triglycerides Level 59 Cholesterol Level 153 LDL Cholesterol, Calculated 28 HDL Cholesterol 113 H Cholesterol/HDL Ratio 1.3 Lipase 504 H Ethyl Alcohol Level < 10.0 H Urine Opiates Screen Positive Urine Barbiturates Negative Urine Amphetamines Screen Negative Urine Benzodiazepines Screen Negative Urine Cocaine Screen Negative Urine Cannabinoids Negative Iron Level 14 L Total Iron Binding Capacity 331 Percent Iron Saturation 4 L Ferritin 16.9 Carcinoembryonic Antigen 3.9 Medications Medication Current Medications IV Flush (NS 3 ml) 3 ml PER PROTOCOL IV ; Start 02/12/19 at 02:30 Ondansetron HCl (Zofran Inj) 4 mg Q6H PRN IV NAUSEA/VOMITING; Start 02/12/19 at 02:30 Nitroglycerin (Nitroglycerin (Sl Tab) 0.4 Mg) 1 tab Q5M PRN SL .CHEST PAIN; Start 02/12/19 at 02:30 Acetaminophen (Tylenol Tab) 650 mg Q6H PRN PO .PAIN 1-3 OR TEMP; Start 02/12/19 at 02:30 Acetaminophen/ Hydrocodone Bitart ([place] (5/325)) 1 tab Q6H PRN PO .PAIN 4-6 Last administered on 02/12/19at 02:31; Admin Dose 1 TAB; Start 02/12/19 at 02:30 Albuterol/ Ipratropium (Duoneb) 3 ml Q2H RESP THERAPY PRN HHN SHORTNESS OF BREATH; Start 02/12/19 at 02:30 Pantoprazole (Protonix Iv) 40 mg BID@06,18 IV Last administered on 02/12/19at 05:58; Admin Dose 40 MG; Start 02/12/19 at 06:00 Ferric Sodium Gluconate Complex 125 mg/Sodium Chloride 100 ml @ 100 mls/hr DAILY@1300 IVPB Last administered on 02/12/19at 12:10; Admin Dose 100 MLS/HR; Start 02/12/19 at 13:00; Stop 02/14/19 at 13:59 Tiotropium [place] (Spiriva) 1 inh DAILY INH Last administered on 02/12/19at 11:05; Admin Dose 1 INH; Start 02/12/19 at 11:00 Nicotine (Nicoderm 21 Mg/ 24hr) 1 patch DAILY TRANSDERM ; Start 02/12/19 at 10:00 WONG STEVE Feb 12, 2019 13:32
[2019-02-12] MEDS ORDERED: BISACODYL (EC) 5 MG TAB PO ONE (14:00)
--- NOTE | 2019-02-12 16:09 | RADRPT ---
Echocardiogram Report Patient Name: AYM MARIEPatient ID: [id number] : 1970 (48y 1m)Study Date: 02/12/2019 2:36:21 PM Gender: FAccession #: [id number] Tech: [facility] [place] Location: Ref.Physician: KELI WILKINSON Height(Cm): 165 BSA: 1.46Weight(Kg): 46.7 Quality: AdequateAccount #: Procedures: Echocardiographic Report: Transthoracic echocardiogram with complete 2D, M-Mode, and doppler examination. Indications: Syncope. Measurements: 2D/M Mode Doppler Measurement Value Normal Range Measurement Value Normal Range LVIDd 2D 4.3 [ 3.8 - 5.2 ] cm AV Peak Be 1.5 [ 100.0 - 170.0 ] cm/se c LVIDs 2D 2.3 [ 2.2 - 3.5 ] cm AV Peak PG 9.0 [ 2.0 - 9.0 ] mmHg LVPWd 2D 0.8 [ 0.6 - 0.9 ] cm LVOT Peak Be 1.1 [ 70.0 - 110.0 ] cm/sec IVSd 2D 0.9 [ 0.6 - 0.9 ] cm LVOT Peak PG 5.0 [ 2.0 - 6.0 ] mmHg AoR Diam 2D 3.4 [ 2.3 - 3.1 ] cm MV E Peak Be 0.7 [ 60.0 - 130.0 ] cm/sec EDV 2D 85.4 [ 46.0 - 106.0 ] ml MV A Peak Be 0.4 [ 100.0 - 120.0 ] cm/se c ESV 2D 18.3 [ 14.0 - 42.0 ] ml MV E/A 1.8 [ 0.8 - 1.5 ] ratio EF 2D 78.6 [ 54.0 - 74.0 ] percent MV PHT 51.0 [ 20.0 - 100.0 ] msec LA Dimen 2D 2.4 [ 2.7 - 3.8 ] cm MV Decel Time 173 [ 104 - 258 ] msec MV Decel Dick[place] 4 Lat E` Be 0.1 [ 10.0 - 15.0 ] cm/sec Lateral E/E` 5.5 [ 1.0 - 2.0 ] ratio Med E` Be 0.1 cm/sec MV E/A 1.8 [ 0.8 - 1.5 ] ratio MVA PHT 4.3 [ 2.0 - 4.0 ] cm2 TR Peak Be 1.7 [ 100.0 - 280.0 ] cm/se c TR Peak PG 11.0 mmHg PV Peak Be 0.9 [ 40.0 - 80.0 ] cm/sec PV Peak PG 3.0 mmHg RVSP 14.0 [ 10.0 - 36.0 ] mmHg RA Pressure 3.0 mmHg Findings: Left Ventricle: Normal left ventricular systolic function. Normal left ventricular cavity size. Normal left ventricular wall thickness. Ejection fraction is visually estimated at 60 %. Tissue Doppler/Mitral Doppler indices are within normal limits. E/E'= 7. Right Ventricle: Normal right ventricular size. Normal right ventricular systolic function. Left Atrium: The left atrium is normal in size. Right Atrium: The right atrium is normal in size. Atrial Septum: Normal atrial septum. Mitral Valve: Normal appearance of the mitral valve. Mild mitral valve regurgitation. Aortic Valve: Normal trileaflet aortic valve structure. Trace aortic valve regurgitation. Tricuspid Valve: Normal appearance and function of the tricuspid valve with trace physiologic regurgitation. Normal right ventricular systolic pressure. Estimated peak PA systolic pressure 14 mmHg. Pulmonic Valve: Normal pulmonic valve appearance. Pericardium: Normal pericardium with no significant pericardial effusion. Aorta: There is mild aortic root dilation. IVC: Normal size and normal respiratory collapse consistent with normal right atrial pressure. Pulmonary Artery: Normal pulmonary artery size. Conclusions: Normal left ventricular systolic function. Normal left ventricular cavity size. Normal left ventricular wall thickness. Ejection fraction is visually estimated at 60 %. Tissue Doppler/Mitral Doppler indices are within normal limits. Normal right ventricular size. Normal right ventricular systolic function. Mild mitral valve regurgitation. Trace aortic valve regurgitation. Normal appearance and function of the tricuspid valve with trace physiologic regurgitation. Normal right ventricular systolic pressure. Estimated peak PA systolic pressure 14 mmHg. Normal pericardium with no significant pericardial effusion. Electronically Signed By: Rod Aragon 2019-02-12 16:08:57 PDT
[2019-02-12] MEDS ORDERED: MAGNESIUM CITRATE 300 ML BTL PO ONE (17:30)
[2019-02-12] MEDS ORDERED: POLYETHYLENE GLYCOL 3350 119 GM POWDER PO ONE (18:30)
[2019-02-13] VITALS (11 sets, daily range): BP systolic 107–130; BP diastolic 66–83; PULSE 61–78; RESP 16–68
[2019-02-13] MEDS: HYDROCODONE/APAP (5/325) TAB PO PRN (00:53)
[2019-02-13] MEDS: PANTOPRAZOLE 40 MG INJ IV SCH (05:55)
[2019-02-13] MEDS ORDERED: POLYETHYLENE GLYCOL 3350 119 GM POWDER PO ONE (06:00)
[2019-02-13] MEDS ORDERED: POTASSIUM CHLORIDE (SR) 20 MEQ TAB PO STA (06:57)
[2019-02-13] MEDS ORDERED: BISACODYL (EC) 5 MG TAB PO ONE (08:00)
[2019-02-13] MEDS: TIOTROPIUM 18 MCG CAPSULE INHA DEV INH SCH (09:00)
[2019-02-13] MEDS: NICOTINE (21 MG/24 HR) PATCH TRANSDERM SCH (09:00)
--- NOTE | 2019-02-13 09:49 | PN ---
Date/Time of Note Date/Time of Note DATE: 02/13/19 TIME: 09:49 Assessment/Plan VTE Prophylaxis Risk score (from Ns)>0 risk: 1 SCD applied (from Ns): Yes Pharmacological prophylaxis: NA/contraindicated Pharm contraindication: low risk/ambulating Lines/Catheters IV [facility] Saline Lock Assessment/Plan Hospital Course SUBJECTIVE: Patient upset for being placed in isolation, walking around in the hallway. OBJECTIVE: Vital signs-see below PHYSICAL EXAM: Constitutional: Well-developed, well-nourished, not in acute distress. HEENT: Head atraumatic and normocephalic. Eyes: Extraocular muscles intact. Anicteric sclerae. Pupils equal bilaterally, reactive to light. NECK: Supple without lymph node. CHEST: Clear and good breath sounds equally. No wheezing. No rhonchi. HEART: S1, S2. Regular rate and rhythm. ABDOMEN: Soft, nontender. Bowel sounds were present. EXTREMITIES: Full range of motion in all the extremities. No cyanosis, clubbing or edema. NEUROLOGIC: Highly temperamental. Alert and oriented x3. No focal deficit. No sensory deficit. PSYCHOSOCIAL: In a good mood. No signs of depression. INTEGUMENTARY: Moist mucous membranes. Good skin turgor, intact. ASSESSMENT AND PLAN: 48-year-old female who is also deaf bilaterally, with tobacco use 1 PPD, daily alcohol use, history of gastritis/esophagitis, COPD, transferred from outside hospital where she initially presented with cough, shortness of breath, dizziness, ongoing rectal bleed. 1. Syncope, likely 2/2GIB -Resolved. -Monitor. 2. Rectal bleed, rule out upper/lower GIB/hemorrhoidal bleed vs other -GI on board and plan is colonoscopy today. 3. Acute blood loss anemia secondary to #2. -Stable H&H, does not require transfusion at this moment. Continue iron replacement. 4. COPD -Currently stable. 5. Tobacco abuse. -Nicotine patch as needed. 6. Alcohol dependency -Counseled on cessation. 7. History of gastritis/esophagitis -Continue PPI regimen 8. Deafness, bilateral 9. MRSA nares -Start Bactroban. DVT prophylaxis: SCDs/ambulation PUD prophylaxis: PPI Disposition: Continue current management. Patient is scheduled for colonoscopy evaluation today. We will follow-up biopsy and GI recommendations. From internal medicine standpoint, patient is stable enough to go for colonoscopy. Patient was seen in collaboration with Dr. Evans. Result Diagram: 02/13/19 0448 02/13/19 0447 Results 24hrs Laboratory Tests Test 02/12/19 11:04 02/12/19 17:34 02/13/19 00:42 02/13/19 04:47 Hemoglobin 9.3 L 9.3 L 8.6 L Hematocrit 30.5 L 31.1 L 28.2 L Iron Level 14 L Total Iron Binding 331 Capacity Percent Iron 4 L Saturation Ferritin 16.9 Creatine Kinase 54 Creatine Kinase 1.0 Index Creatinine Kinase MB 0.53 (Mass) Troponin I < 0.012 < 0.012 Carcinoembryonic 3.9 Antigen Sodium Level 138 Potassium Level 3.0 L Chloride Level 105 Carbon Dioxide Level 24 Anion Gap 9 Blood Urea Nitrogen 9 Creatinine 0.47 Est Glomerular > 60 Filtrat Rate mL/min Glucose Level 85 Calcium Level 8.4 Phosphorus Level 2.9 Magnesium Level 2.1 Test 02/13/19 04:48 White Blood Count 4.9 # Red Blood Count 3.31 L Hemoglobin 8.5 L Hematocrit 28.2 L Mean Corpuscular 85.2 Volume Mean Corpuscular 25.7 L Hemoglobin Mean Corpuscular 30.1 L Hemoglobin Concent Red Cell 21.4 H Distribution Width Platelet Count 212 Mean Platelet Volume 10.9 H Immature 0.400 Granulocytes % Neutrophils % 49.3 Lymphocytes % 39.6 Monocytes % 8.5 Eosinophils % 1.4 Basophils % 0.8 Nucleated Red Blood 0.0 Cells % Immature 0.020 Granulocytes # Neutrophils # 2.4 Lymphocytes # 2.0 Monocytes # 0.4 Eosinophils # 0.1 Basophils # 0.0 Nucleated Red Blood 0.0 Cells # Exam/Review of Systems Exam Vitals Vital Signs Date Temp Pulse Resp B/P (MAP) Pulse Ox O2 O2 Flow FiO2 Time Delivery Rate 02/13/19 75 08:01 02/13/19 97.8 68 123/83 98 04:09 (96) Intake and Output 02/12/19 02/12/19 02/13/19 1515:00 23:00 07:00 IntakeIntake Total 100 ml 800 ml 500 ml OutputOutput Total 3 ml 4 ml BalanceBalance 100 ml 797 ml 496 ml Results Results 24hrs Laboratory Tests Test 02/12/19 11:04 02/12/19 17:34 02/13/19 00:42 02/13/19 04:47 Hemoglobin 9.3 L 9.3 L 8.6 L Hematocrit 30.5 L 31.1 L 28.2 L Iron Level 14 L Total Iron Binding 331 Capacity Percent Iron 4 L Saturation Ferritin 16.9 Creatine Kinase 54 Creatine Kinase 1.0 Index Creatinine Kinase MB 0.53 (Mass) Troponin I < 0.012 < 0.012 Carcinoembryonic 3.9 Antigen Sodium Level 138 Potassium Level 3.0 L Chloride Level 105 Carbon Dioxide Level 24 Anion Gap 9 Blood Urea Nitrogen 9 Creatinine 0.47 Est Glomerular > 60 Filtrat Rate mL/min Glucose Level 85 Calcium Level 8.4 Phosphorus Level 2.9 Magnesium Level 2.1 Test 02/13/19 04:48 White Blood Count 4.9 # Red Blood Count 3.31 L Hemoglobin 8.5 L Hematocrit 28.2 L Mean Corpuscular 85.2 Volume Mean Corpuscular 25.7 L Hemoglobin Mean Corpuscular 30.1 L Hemoglobin Concent Red Cell 21.4 H Distribution Width Platelet Count 212 Mean Platelet Volume 10.9 H Immature 0.400 Granulocytes % Neutrophils % 49.3 Lymphocytes % 39.6 Monocytes % 8.5 Eosinophils % 1.4 Basophils % 0.8 Nucleated Red Blood 0.0 Cells % Immature 0.020 Granulocytes # Neutrophils # 2.4 Lymphocytes # 2.0 Monocytes # 0.4 Eosinophils # 0.1 Basophils # 0.0 Nucleated Red Blood 0.0 Cells # Medications Medication Current Medications IV Flush (NS 3 ml) 3 ml PER PROTOCOL IV ; Start 02/12/19 at 02:30 Ondansetron HCl (Zofran Inj) 4 mg Q6H PRN IV NAUSEA/VOMITING; Start 02/12/19 at 02:30 Nitroglycerin (Nitroglycerin (Sl Tab) 0.4 Mg) 1 tab Q5M PRN SL .CHEST PAIN; Start 02/12/19 at 02:30 Acetaminophen (Tylenol Tab) 650 mg Q6H PRN PO .PAIN 1-3 OR TEMP; Start 02/12/19 at 02:30 Acetaminophen/ Hydrocodone Bitart ([place] (5/325)) 1 tab Q6H PRN PO .PAIN 4-6 Last administered on 02/13/19at 00:53; Admin Dose 1 TAB; Start 02/12/19 at 02:30 Albuterol/ Ipratropium (Duoneb) 3 ml Q2H RESP THERAPY PRN HHN SHORTNESS OF BREATH; Start 02/12/19 at 02:30 Pantoprazole (Protonix Iv) 40 mg BID@06,18 IV Last administered on 02/13/19at 05:55; Admin Dose 40 MG; Start 02/12/19 at 06:00 Ferric Sodium Gluconate Complex 125 mg/Sodium Chloride 100 ml @ 100 mls/hr DAILY@1300 IVPB Last administered on 02/12/19at 12:10; Admin Dose 100 MLS/HR; Start 02/12/19 at 13:00; Stop 02/14/19 at 13:59 Tiotropium [place] (Spiriva) 1 inh DAILY INH Last administered on 02/12/19at 11:05; Admin Dose 1 INH; Start 02/12/19 at 11:00 Nicotine (Nicoderm 21 Mg/ 24hr) 1 patch DAILY TRANSDERM ; Start 02/12/19 at 10:00 SEPIDEH LEWIS V. CAPTION WRITER Feb 13, 2019 09:49
[2019-02-13] MEDS ORDERED: MUPIROCIN 2% 22 GM OINT TOP SCH ×2 (10:00→10:30)
[2019-02-13] MEDS ORDERED: POTASSIUM CHLORIDE 100 ML IVPB SCH (10:00)
--- NOTE | 2019-02-13 11:51 | PREAC ---
Date/Time of Note Date/Time of Note DATE: 02/13/19 TIME: 11:50 Anesthesia Eval and Record Evaluation Time Pre-Procedure Interview DATE: 02/13/19 TIME: 11:50 Age 48 Sex female NPO: 8 hrs Preoperative diagnosis Hematemesis Planned procedure EGD / Colonoscopy Past Medical History Past Medical History: Includes Pulm: Smoking Hx, COPD Hepatic: Alcohol abuse Surgery & Anesthesia Issues No known issue Meds Anticoagulation: No Beta Morgan within 24 hr: No Reason Beta Morgan not given: Pt. not on B-Morgan No Active Prescriptions or Reported Meds Current Medications IV Flush (NS 3 ml) 3 ml PER PROTOCOL IV ; Start 02/12/19 at 02:30 Ondansetron HCl (Zofran Inj) 4 mg Q6H PRN IV NAUSEA/VOMITING; Start 02/12/19 at 02:30 Nitroglycerin (Nitroglycerin (Sl Tab) 0.4 Mg) 1 tab Q5M PRN SL .CHEST PAIN; Start 02/12/19 at 02:30 Acetaminophen (Tylenol Tab) 650 mg Q6H PRN PO .PAIN 1-3 OR TEMP; Start 02/12/19 at 02:30 Acetaminophen/ Hydrocodone Bitart ([place] (5/325)) 1 tab Q6H PRN PO .PAIN 4-6 Last administered on 02/13/19at 00:53; Admin Dose 1 TAB; Start 02/12/19 at 02:30 Albuterol/ Ipratropium (Duoneb) 3 ml Q2H RESP THERAPY PRN HHN SHORTNESS OF BREATH; Start 02/12/19 at 02:30 Pantoprazole (Protonix Iv) 40 mg BID@06,18 IV Last administered on 02/13/19at 05:55; Admin Dose 40 MG; Start 02/12/19 at 06:00 Ferric Sodium Gluconate Complex 125 mg/Sodium Chloride 100 ml @ 100 mls/hr DAILY@1300 IVPB Last administered on 02/12/19at 12:10; Admin Dose 100 MLS/HR; Start 02/12/19 at 13:00; Stop 02/14/19 at 13:59 Tiotropium [place] (Spiriva) 1 inh DAILY INH Last administered on 02/12/19at 11:05; Admin Dose 1 INH; Start 02/12/19 at 11:00 Nicotine (Nicoderm 21 Mg/ 24hr) 1 patch DAILY TRANSDERM ; Start 02/12/19 at 10:00 Mupirocin (Bactroban) 1 applic BID TOP ; Start 02/13/19 at 10:00 Meds reviewed: Yes Allergies Coded Allergies: Iodinated Contrast- Oral and IV Dye (Verified Allergy, Severe, SOB, 02/12/19) apple (Verified Allergy, Severe, ANALPHYLAXIS, 03/30/18) aspirin (Verified Allergy, Severe, RESP DISTRESS "IT ALMOST KILLED ME", 03/30/18) haloperidol (Verified Allergy, Intermediate, 03/30/18) Allergies Reviewed: Yes Labs/Studies Labs Reviewed: Reviewed by anesthesiologist Result Diagram: 02/13/19 0907 02/13/19 0447 Laboratory Tests 02/13/19 04:47 02/13/19 04:48 02/13/19 09:07 test: N/A Studies: 2D Echo Pre-procedure Exam Last vitals Vital Signs Date Temp Pulse Resp B/P (MAP) Pulse Ox O2 O2 Flow FiO2 Time Delivery Rate 02/13/19 75 08:01 02/13/19 97.8 68 123/83 98 04:09 (96) Airway: Adequate mouth opening Mallampati: Mallampati II Teeth: Normal Lung: Normal Heart: Normal ASA Physical Status ASA physical status: 3 Emergency: None Planned Anesthetic General/MAC: MAC Pre-operative Attestations Prior to commencing anesthesia and surgery, the patient was re-evaluated, there was verification of: *The patient's identity *The results of appropriate recent lab work and preoperative vital signs *The above evaluation not changing prior to induction *Anesthetic plan, risk benefits, alternative and complications discussed with patient/family; questions answered; patient/family understands, accepts and wishes to proceed. GUNNER SOLANO Feb 13, 2019 11:51
[2019-02-13] MEDS ORDERED: LIDOCAINE 100 MG SYRINGE ONE (11:55)
[2019-02-13] MEDS ORDERED: PROPOFOL 40 ML ONE (11:55)
[2019-02-13] MEDS ORDERED: hydrALAzine 20 MG INJ IV PRN (12:00)
[2019-02-13] MEDS ORDERED: METOCLOPRAMIDE 10 MG INJ IV PRN (12:00)
[2019-02-13] MEDS ORDERED: LABETALOL HCL 20MG INJ IV PRN (12:00)
[2019-02-13] MEDS ORDERED: ONDANSETRON 4 MG INJ IV PRN (12:00)
--- NOTE | 2019-02-13 13:43 | PAC ---
Date/Time of Note Date/Time of Note DATE: 02/13/19 TIME: 13:43 Post-Anesthesia Notes Post-Anesthesia Note Last documented vital signs Vital Signs Date Temp Pulse Resp B/P (MAP) Pulse Ox O2 O2 Flow FiO2 Time Delivery Rate 02/13/19 Nasal 10 13:15 Cannula 02/13/19 97.5 78 16 117/70 100 12:24 (86) Activity: WNL Respiratory function: WNL Cardiovascular function: WNL Mental status: Baseline Pain reasonably controlled: Yes Hydration appropriate: Yes Nausea/Vomiting absent: Yes Comments BP 130/66 Sp02 100% HR 75 RR 13 T 36.8 RUBY AGUIRRE CRNA Feb 13, 2019 13:43
--- NOTE | 2019-02-13 13:50 | HPN ---
Date/Time of Note Date/Time of Note DATE: 02/13/19 TIME: 13:50 Interval H&P Admission Note Pt. seen H&P reviewed: No system changes MEGAN JONES Feb 13, 2019 13:50
[2019-02-13] MEDS: SOD FERRIC GLUC COMPLX 125 MG in SOD CHLORIDE 0.9% 100 ML IVPB SCH (14:43)
--- NOTE | 2019-02-14 09:16 | DS ---
Date/Time of Note Date/Time of Note DATE: 02/14/19 TIME: 09:14 Discharge Summary Admission/Discharge Info Admit Date/Time Feb 12, 2019 at 00:19 Discharge Date/Time Feb 13, 2019 at 14:40 (AGAINST MEDICAL ADVICE) Discharge Diagnosis 1. Syncope, likely 2/2GIB. Resolved. 2. Rectal bleed, rule out upper/lower GIB/hemorrhoidal bleed vs other. Resolved. Status post EGD/colonoscopy, biopsy pending. 3. Acute blood loss anemia secondary to #2. 4. COPD 5. Tobacco abuse. 6. Alcohol dependency 7. History of gastritis/esophagitis 8. Deafness, bilateral 9. MRSA nares 10. Noncompliance 11. Homelessness Patient Condition: Stable Consults , gastroenteritis Procedures 02/13/2019. EGD/colonoscopy. Normal colonoscopy. EGD with gastritis, questionable gastric process. Biopsy pending. Hospital Course 48-year-old female who is also deaf bilaterally, homelessness, with tobacco use 1 PPD, daily alcohol use, history of gastritis/esophagitis, COPD, transferred from outside hospital where she initially presented with cough, shortness of breath, dizziness, ongoing rectal bleed. Patient was ruled out for acute cardiac/neurovascular events to explain syncopal episode. Most likely this is caused by blood loss anemia, possible hypertensive episodes secondary to rectal bleed. Patient did not have any further syncopal episodes while she was in the hospital. She did not require any assistance with ovulation. Patient's hemoglobin remained stable with no need for transfusion. She was given IV iron. There was no witnessed bleeding episodes while she was in the hospital. During the course of hospitalization, patient also appeared rude to staff, wondering, refusing isolation for MRSA nares. Patient underwent EGD/colonoscopy on 02/13/2019 with normal colonoscopy finding, EGD with gastritis with possible gastroparesis. Patient did not want to wait for any biopsy findings and she decided to leave AGAINST MEDICAL ADVICE after the colonoscopy. Despite our efforts, patient had decided to leave AGAINST MEDICAL ADVICE. Patient has normal mental status and full decisional capacity. Patient understood her condition and the risk of leaving AMA, including but not limited to permanent disability, etc., and had an opportunity to ask questions about own medical condition. The patient has been informed that the paient may return for care anytime and has been referred to primary care provider for follow-up as soon as possible. Case discussed with Dr. Evans. Home Meds No Active Prescriptions or Reported Meds Primary Care Provider Not On Staff Doctor SEPIDEH LEWIS NP Feb 14, 2019 09:16
--- NOTE | 2019-02-15 17:20 | RADRPT ---
Vent Rate: 69 bpm RR Interval: 0 msec IA Interval: 136 msec QRS Duration: 84 msec QT Interval: 464 msec QTC Interval: 497 msec P-R-T [place]: 78 - 70 - 65 degrees Normal sinus rhythm Prolonged QT Abnormal ECG Electronically Signed By: Amarjit Browne
== END 2019-02-13 14:40 | disposition left against medical advice (07) | DRG 378 ==
LOC: 6WM 02-12 00:19
PROVIDERS: ADMIT Internal Medicine; ATTEND Internal Medicine
PROC: 0DBG8ZX Excision of Left Large Intestine, Via Natural or Artificial Opening Endoscopic, Diagnostic (ICD-10-PCS; 2019-02-13)
PROC: 0DBL8ZX Excision of Transverse Colon, Via Natural or Artificial Opening Endoscopic, Diagnostic (ICD-10-PCS; 2019-02-13)
PROC: 0DBF8ZX Excision of Right Large Intestine, Via Natural or Artificial Opening Endoscopic, Diagnostic (ICD-10-PCS; 2019-02-13)
PROC: 0DB98ZX Excision of Duodenum, Via Natural or Artificial Opening Endoscopic, Diagnostic (ICD-10-PCS; principal; 2019-02-13 12:30)
PROC: 0DB68ZX Excision of Stomach, Via Natural or Artificial Opening Endoscopic, Diagnostic (ICD-10-PCS; 2019-02-13 12:30)
DX: K92.0 Hematemesis (principal); D62 Acute posthemorrhagic anemia; K62.5 Hemorrhage of anus and rectum; R42 Dizziness and giddiness; Z72.0 Tobacco use; F10.20 Alcohol dependence, uncomplicated; Z59.0 Homelessness; Z22.322 Carrier or suspected carrier of Methicillin resistant Staphylococcus aureus; Z91.19 Patient's noncompliance with other medical treatment and regimen; H91.93 Unspecified hearing loss, bilateral; R07.9 Chest pain, unspecified; J43.8 Other emphysema; K64.8 Other hemorrhoids; K31.84 Gastroparesis
CPT/HCPCS: 71045; 74018; 80048; 80053; 80061; 80307; 82378; 82550; 82553; 82728; 83540; 83690; 83735; 84100; 84484; 84703; 85014; 85018; 85025; 87081; 88305; 93005; 93306; 93880; C9113; J2001; J2916; J2930; J3480

== ENCOUNTER 2019-03-22 14:16 | Inpatient (IN) | payer OTHER ==
[~2019-03-22] VITALS: Ht 165.1 cm; Wt 52.0 kg
[2019-03-22 16:00] VITALS: PULSE 100
[2019-03-22 16:31] VITALS: BP 128/88; PULSE 101; RESP 17
[2019-03-22] MEDS ORDERED: SOD CHLORIDE 0.9% 1,000 ML IV SCH (16:56)
[2019-03-22] MEDS ORDERED: ONDANSETRON 4 MG INJ IV PRN (17:00)
[2019-03-22] MEDS ORDERED: ACETAMINOPHEN 325 MG TAB PO PRN (17:00)
[2019-03-22] MEDS ORDERED: NACL 0.9% 3 ML SYG IV SCH (17:00)
[2019-03-22] MEDS ORDERED: LEVALBUTEROL (NEB) 1.25 MG/0.5 ML AMP HHN PRN (17:00)
[2019-03-22] MEDS ORDERED: IPRATROPIUM (NEB) 0.5 MG/2.5 ML AMP HHN PRN (17:00)
[2019-03-22] MEDS ORDERED: LORAZEPAM 2 MG INJ IV PRN ×2 (17:00→17:30)
[2019-03-22 17:11] VITALS: Ht 165.1 cm; Wt 52.0 kg
[2019-03-22] MEDS: SUCRALFATE (100 MG/ML) 10ML CUP PO SCH ×2 (17:30→21:00)
--- NOTE | 2019-03-22 17:40 | HP ---
Date/Time of Note Date/Time of Note DATE: 03/22/19 TIME: 17:40 Assessment/Plan VTE Prophylaxis Pharmacological prophylaxis: other Assessment/Plan Hospital Course Patient is a female the past medical history significant for COPD, emphysema, alcohol abuse, drug use, gastritis, schizophrenia, pancreatitis, deafness but can read lips who presents to [facility] as a transfer for destiny rtness of breath abdominal pain. Patient was found by paramedics and was found mildly hypoxic at 89%, was given albuterol inhaler and subsequently was doing fine on room air. However patient does states she has some subjective shortness of breath still however appears to be breathing perfectly fine without any supplemental oxygen. Patient was found to have alcohol positive on her encounter at the other emergency room. Patient initially told ER physician at the other facility that she had right upper quadrant pain and subsequently they did an ultrasound which found some gallbladder sludge with no evidence of cholecystitis. However upon my evaluation here patient is stating that the pain is in the lower right quadrant and she is concerned of appendicitis. Patient currently denies any chest pain, headache, nausea, vomiting, leg pain however states that she has been drinking and does not remember a lot of things. Objective Physical exam General: Patient is laying in bed and answers questions appropriately Mentation: Patient is alert and oriented 4, Head: Normocephalic atraumatic Eyes: EOMI, pupils reactive to light Neck: Supple, nontender, midline Respiratory: Mildly coarse to auscultation bilaterally Cardiovascular: regular rate, no obvious murmurs Gastrointestinal: Right lower quadrant tender to palpation, bowel sounds heard. Neurological: Moves all extremities spontaneously Skin: No new skin lesions Assessment and plan Getting stat labs, most of this assessment and plan is based on laboratory values found at other facility Acute hypoxic respiratory distress, resolving -Doing well on room air now -Continue Xopenex, ipratropium, budesonide inhalers -Azithromycin for possible COPD exacerbation anti-inflammatory COPD exacerbation with emphysema -Treatment secondary to above respiratory distress -Nebulizers -Azithromycin for anti-inflammatory effects and atypicals given patient's homeless status Right lower quadrant abdominal pain -This is highly vague as patient was stating epigastric and right upper quadrant abdominal pain at the other ED which is why they got an ultrasound and lipase which were negative for cholecystitis and pancreatitis. Patient has no epigastric or right upper quadrant pain at all -We will need to get a stat CT of the abdomen and pelvis to rule out appendicitis -At other facility troponin negative, urinalysis negative ,lipase negative, lactic acid has already returned to normal value before transfer. Alcohol abuse -Concern of withdrawal, Ativan as needed IV will start Librium once patient able to tolerate p.o. -IV fluid -Banana bag History of GI bleed -Patient left AMA from a recent GI bleed, however no acute complaints at this time, monitor closely, continue Protonix and Carafate History of schizophrenia -Not on any medications, monitor, once more stable will offer psychiatry services to patient -Urine drug screen done at other facility only shows benzodiazepines which were likely given to her in the form of Ativan in their ED and marijuana, Disposition -We will treat patient's respiratory status with nebulizers which already appears to be resolving significantly, -Follow-up with CT abdomen pelvis for acute right lower quadrant abdominal pain. HPI/ROS Admit Date/Time Admit Date/Time March 22, 2019 at 16:12 PMH/Family/Social Past Medical History Medications Current Medications Sodium Chloride 1,000 ml @ 60 mls/hr [id number] IV ; Start 03/22/19 at 16:56 IV Flush (NS 3 ml) 3 ml PER PROTOCOL IV ; Start 03/22/19 at 17:00 Lorazepam (Ativan) 0.5 mg Q6H PRN IV .ANXIETY; Start 03/22/19 at 17:00 Ondansetron HCl (Zofran Inj) 4 mg Q6H PRN IV NAUSEA/VOMITING; Start 03/22/19 at 17:00 Acetaminophen (Tylenol Tab) 650 mg Q6H PRN PO .PAIN 1-3 OR TEMP; Start 03/22/19 at 17:00 Levalbuterol (Xopenex Neb) 1.25 mg Q6H RESP THERAPY HHN ; Start 03/22/19 at 20:00 Levalbuterol (Xopenex Neb) 1.25 mg Q6H RESP THERAPY PRN HHN shortness of breath; Start 03/22/19 at 17:00 Ipratropium [place] (Atrovent 0.02% (Neb)) 0.5 mg Q6HWA RESP THERAPY HHN ; Start 03/22/19 at 20:00 Ipratropium [place] (Atrovent 0.02% (Neb)) 0.5 mg Q2H RESP THERAPY PRN HHN SHORTNESS OF BREATH; Start 03/22/19 at 17:00 Budesonide (Pulmicort (Neb)) 0.5 mg BID RESP THERAPY HHN ; Start 03/22/19 at 20:00 Lorazepam (Ativan) 2 mg Q10MIN PRN IV seizure; Start 03/22/19 at 17:30 Sucralfate (Carafate Susp) 1 gm QID PO ; Start 03/22/19 at 17:30 Azithromycin 250 ml @ 250 mls/hr Q24H IVPB ; Start 03/23/19 at 12:00 Pantoprazole (Protonix Iv) 40 mg BID@06,18 IV ; Start 03/22/19 at 18:00; Status UNV Multivitamins 10 ml/Thiamine HCl 100 mg/Folic Acid 1 mg/Sodium Chloride 1,011.2 ml @ 125 mls/ hr DAILY@09 IVPB ; Start 03/23/19 at 09:00; Status UNV Coded Allergies: Iodinated Contrast- Oral and IV Dye (Verified Allergy, Severe, SOB, 02/12/19) apple (Verified Allergy, Severe, ANALPHYLAXIS, 03/30/18) aspirin (Verified Allergy, Severe, RESP DISTRESS "IT ALMOST KILLED ME", 03/30/18) haloperidol (Verified Allergy, Intermediate, 03/30/18) Past Surgical History Past Surgical Hx: other Family History Significant Family History: no pertinent family hx Social History Smoking Status: Current some day smoker Exam/Review of Systems Vital Signs Vitals Vital Signs Date Temp Pulse Resp B/P (MAP) Pulse Ox O2 O2 Flow FiO2 Time Delivery Rate 03/22/19 98.3 101 17 128/88 98 16:31 (101) VEGA SUN March 22, 2019 17:40
[2019-03-22] MEDS: PANTOPRAZOLE 40 MG INJ IV SCH (18:40)
[2019-03-22 19:49] VITALS: BP 140/81; PULSE 99; RESP 20
[2019-03-22 20:00] VITALS: PULSE 94
[2019-03-22] MEDS: IPRATROPIUM (NEB) 0.5 MG/2.5 ML AMP HHN SCH (20:02)
[2019-03-22] MEDS: LEVALBUTEROL (NEB) 1.25 MG/0.5 ML AMP HHN SCH (20:12)
[2019-03-22] MEDS: BUDESONIDE (NEB) 0.5MG/2ML AMP HHN SCH (20:22)
[2019-03-22 23:40] VITALS: BP 137/89; PULSE 93; RESP 18
[2019-03-23] VITALS (10 sets, daily range): BP systolic 119–151; BP diastolic 62–82; PULSE 16–117; RESP 17–21
[2019-03-23] MEDS: LEVALBUTEROL (NEB) 1.25 MG/0.5 ML AMP HHN SCH ×4 (02:04→20:45)
[2019-03-23] MEDS ORDERED: PANTOPRAZOLE (EC) 40 MG TAB PO SCH ×2 (06:00)
[2019-03-23] MEDS: PANTOPRAZOLE 40 MG INJ IV SCH ×2 (06:13→17:39)
[2019-03-23] MEDS ORDERED: POTASSIUM CHLORIDE 20 MEQ POWDER FOR ORAL SOLN PO ONE (07:00)
[2019-03-23] MEDS: CHLORDIAZEPOXIDE 5 MG CAP PO SCH ×3 (08:21→20:12)
[2019-03-23] MEDS: SUCRALFATE (100 MG/ML) 10ML CUP PO SCH ×4 (08:21→20:12)
[2019-03-23] MEDS ORDERED: MULTIVITAMINS 10 ML, THIAMINE 100 MG, FOLIC ACID 1 MG in SOD CHLORIDE 0.9% 1,000 ML IVPB SCH (09:00)
[2019-03-23] MEDS: BUDESONIDE (NEB) 0.5MG/2ML AMP HHN SCH ×2 (09:08→20:45)
[2019-03-23] MEDS: IPRATROPIUM (NEB) 0.5 MG/2.5 ML AMP HHN SCH ×3 (09:08→20:44)
[2019-03-23] MEDS ORDERED: AZITHROMYCIN 500MG/NS (PMX) 250 ML IVPB SCH (12:00)
--- NOTE | 2019-03-23 15:37 | PN ---
Date/Time of Note Date/Time of Note DATE: 03/23/19 TIME: 15:32 Objective Vitals Vital Signs Date Temp Pulse Resp B/P (MAP) Pulse Ox O2 O2 Flow FiO2 Time Delivery Rate 03/23/19 98 21 14:28 03/23/19 83 20 14:27 03/23/19 98.4 127/74 Room Air 11:05 (91) Intake and Output 03/22/19 03/22/19 03/23/19 1515:00 23:00 07:00 IntakeIntake Total 0 ml 1060 ml BalanceBalance 0 ml 1060 ml Results Result Diagram: 03/23/1927 03/23/19526 Medications Medications Current Medications Sodium Chloride 1,000 ml @ 60 mls/hr [id number] IV Last administered on 03/22/19at 18:38; Admin Dose 60 MLS/HR; Start 03/22/19 at 16:56 IV Flush (NS 3 ml) 3 ml PER PROTOCOL IV ; Start 03/22/19 at 17:00 Lorazepam (Ativan) 0.5 mg Q6H PRN IV .ANXIETY Last administered on 03/23/19at 02:38; Admin Dose 0.5 MG; Start 03/22/19 at 17:00 Ondansetron HCl (Zofran Inj) 4 mg Q6H PRN IV NAUSEA/VOMITING; Start 03/22/19 at 17:00 Acetaminophen (Tylenol Tab) 650 mg Q6H PRN PO .PAIN 1-3 OR TEMP; Start 03/22/19 at 17:00 Levalbuterol (Xopenex Neb) 1.25 mg Q6H RESP THERAPY HHN Last administered on 03/23/19at 14:24; Admin Dose 1.25 MG; Start 03/22/19 at 20:00 Levalbuterol (Xopenex Neb) 1.25 mg Q6H RESP THERAPY PRN HHN shortness of breath; Start 03/22/19 at 17:00 Ipratropium [place] (Atrovent 0.02% (Neb)) 0.5 mg Q6HWA RESP THERAPY HHN Last administered on 03/23/19at 14:23; Admin Dose 0.5 MG; Start 03/22/19 at 20:00 Ipratropium [place] (Atrovent 0.02% (Neb)) 0.5 mg Q2H RESP THERAPY PRN HHN SHORTNESS OF BREATH; Start 03/22/19 at 17:00 Budesonide (Pulmicort (Neb)) 0.5 mg BID RESP THERAPY HHN Last administered on 03/23/19at 09:08; Admin Dose 0.5 MG; Start 03/22/19 at 20:00 Lorazepam (Ativan) 2 mg Q10MIN PRN IV seizure; Start 03/22/19 at 17:30 Sucralfate (Carafate Susp) 1 gm QID PO Last administered on 03/23/19 12:35; Admin Dose 1 GM; Start 03/22/19 at 17:30 Azithromycin 250 ml @ 250 mls/hr Q24H IVPB Last administered on 03/23/19 12:35; Admin Dose 250 MLS/HR; Start 03/23/19 at 12:00 Pantoprazole (Protonix Iv) 40 mg BID@06,18 IV Last administered on 03/23/19 06:13; Admin Dose 40 MG; Start 03/22/19 at 18:00 Multivitamins 10 ml/Thiamine HCl 100 mg/Folic Acid 1 mg/Sodium Chloride 1,011.2 ml @ 125 mls/ hr DAILY@09 IVPB Last administered on 03/23/19at 09:32; Admin Dose 125 MLS/HR; Start 03/23/19 at 09:00 Chlordiazepoxide (Librium) 10 mg TID PO Last administered on 03/23/19 12:35; Admin Dose 10 MG; Start 03/23/19 at 09:00 VTE Prophylaxis Risk score (from Ns)>0 risk: 1 SCD applied (from Nsg): Yes Lines/Catheters IV Catheter Type: Hernadez in Place: No Assessment/Plan Hospital Course Subjective Patient doing well on room air, still has right lower quadrant pain Objective Physical exam General: Patient is laying in bed and answers questions appropriately Mentation: Patient is alert and oriented 4, Head: Normocephalic atraumatic Eyes: EOMI, pupils reactive to light Neck: Supple, nontender, midline Respiratory: Mildly coarse to auscultation bilaterally Cardiovascular: regular rate, no obvious murmurs Gastrointestinal: Right lower quadrant tender to palpation, bowel sounds heard. Neurological: Moves all extremities spontaneously Skin: No new skin lesions Assessment and plan Acute hypoxic respiratory distress, resolved -Doing well on room air now -Continue Xopenex, ipratropium, budesonide inhalers -Azithromycin for possible COPD exacerbation anti-inflammatory COPD exacerbation with emphysema, resolving -Treatment secondary to above respiratory distress -Nebulizers -Azithromycin for anti-inflammatory effects and atypicals given patient's homeless status Right lower quadrant abdominal pain -This is highly vague as patient was stating epigastric and right upper quadrant abdominal pain at the other ED which is why they got an ultrasound and lipase which were negative for cholecystitis and pancreatitis. Patient has no epigastric or right upper quadrant pain at all -CT abdomen pelvis negative for acute issues -Patient does have a questionable history of ovarian cyst, will order ultrasound History of ovarian cyst -May be because of patient's above abdominal pain, pending ultrasound Alcohol abuse -Concern of withdrawal, however patient doing very well and very unlikely to withdrawal at this point, continue Librium. -Thiamine, folic acid History of GI bleed -Patient left AMA from a recent GI bleed, however no acute complaints at this time, monitor closely, continue Protonix and Carafate History of schizophrenia -Not on any medications, monitor, once more stable will offer psychiatry services to patient -Urine drug screen done at other facility only shows benzodiazepines which were likely given to her in the form of Ativan in their ED and marijuana, Disposition -Follow-up with ultrasound for acute right lower quadrant abdominal pain. Patient likely okay to discharge soon as shortness of breath and alcohol withdrawal period will be over soon. VEGA SUN March 23, 2019 15:36
[2019-03-24] MEDS ORDERED: THIAMINE 100 MG TAB PO SCH (09:00)
[2019-03-24] MEDS ORDERED: FOLIC ACID 1 MG TAB PO SCH (09:00)
--- NOTE | 2019-03-24 14:00 | DS ---
Date/Time of Note Date/Time of Note DATE: 03/24/19 TIME: 13:59 Discharge Summary Admission/Discharge Info Admit Date/Time March 22, 2019 at 16:12 Discharge Date/Time March 23, 2019 at 21:55 Patient Condition: Critical Hospital Course Patient overnight became very agitated and eloped from the hospital. Patient refused to sign papers stating AGAINST MEDICAL ADVICE. Patient was alert and oriented x4, warehouse loader, nurse liter, security attempted to convince patient to stay however patient walked out. Home Meds No Active Prescriptions or Reported Meds Primary Care Provider Care Physician No Primary Time spent on discharge: > 30 minutes VEGA SUN March 24, 2019 14:00
== END 2019-03-23 21:55 | disposition left against medical advice (07) | DRG 204 ==
LOC: 6WM 16:12
PROVIDERS: ADMIT Internal Medicine; ATTEND Internal Medicine
DX: R06.02 Shortness of breath (principal); J44.1 Chronic obstructive pulmonary disease with (acute) exacerbation; R10.9 Unspecified abdominal pain; F10.129 Alcohol abuse with intoxication, unspecified; F20.9 Schizophrenia, unspecified
CPT/HCPCS: 71045; 74176; 76856; 80053; 80061; 80307; 81003; 83036; 83605; 83690; 83735; 84443; 84484; 84703; 85025; 94640; 94664; C9113; J0456; J2060; J3411; J7030

== ENCOUNTER 2019-03-23 22:23 | Emergency (ER) | payer OTHER ==
[~2019-03-23] VITALS: Ht 160 cm; Wt 52.0 kg
[2019-03-23 22:31] VITALS: Ht 160 cm; Wt 52.0 kg
--- NOTE | 2019-03-24 02:13 | ERD ---
ER Documentation Chief Complaint Chief Complaint Tired HPI The patient is a 48-year-old female, presenting to the ER because of feeling tired. She left AGAINST MEDICAL ADVICE yesterday prior to being discharged. She denies fever, chills, neck pain, chest pain, dyspnea, abdominal pain, vomiting, dysuria, diarrhea. She drinks regularly Past medical history: COPD, depression, gastritis, schizophrenia, deafness, fibroid ROS All systems reviewed and are negative except as per history of present illness. Medications Home Meds No Active Prescriptions or Reported Meds Allergies Allergies: Coded Allergies: Iodinated Contrast- Oral and IV Dye (Verified Allergy, Severe, SOB, 02/12/19) apple (Verified Allergy, Severe, ANALPHYLAXIS, 03/30/18) aspirin (Verified Allergy, Severe, RESP DISTRESS "IT ALMOST KILLED ME", 03/30/18) haloperidol (Verified Allergy, Intermediate, 03/30/18) PMhx/Soc History of Surgery: Yes (PT UNABLE TO RECALL) Anesthesia Reaction: No Hx Neurological Disorder: Yes (GEN. BODY WEAKNESS ) Hx Respiratory Disorders: Yes (HX PNEUMONIA) Hx Cardiac Disorders: Yes (HX CHEST PAIN (UNKNOWN CAUSE?)) Hx Psychiatric Problems: Yes ((DEPRESSION)) Hx Miscellaneous Medical Probl: Yes (etoh, ) Hx Alcohol Use: Yes Hx Substance Use: Yes Hx Tobacco Use: Yes Physical Exam Vitals Vital Signs Date Temp Pulse Resp B/P (MAP) Pulse Ox O2 O2 Flow FiO2 Time Delivery Rate 03/23/19 99.1 107 22 119/75 98 22:31 (90) Physical Exam Const: No acute distress. Head: Atraumatic. Eyes: Normal Conjunctiva. ENT: Normal External Ears, Nose and Mouth. Neck: Full range of motion. No meningismus. Resp: Clear to auscultation bilaterally. Cardio: Regular rate and rhythm. Abd: Soft, non distended, normal bowel sounds, non tender. Skin: No petechiae or rashes. Back: No midline or flank tenderness. Ext: No cyanosis, or edema. Neur: Awake and alert. No focal deficit Psych: Normal Mood and Affect. Procedures/MDM MEDICAL MAKING DECISION: The patient is a 48-year-old female, presenting with tiredness. She is stable for outpatient follow-up The differential diagnoses considered include but are not limited to asthma, COPD, pneumonia, pulmonary embolus, pleural effusion, congestive heart failure. Departure Diagnosis: Primary Impression: COPD (chronic obstructive pulmonary disease) Condition: Good Comments I discussed the findings with the patient. I advised the patient to follow-up with the primary physician in about 2-3 days, sooner if needed and return if any concern. Disclaimer: Inadvertent spelling and grammatical errors are likely due to EHR/dictation software use and do not reflect on the overall quality of patient care. Also, please note that the electronic time recorded on this note does not necessarily reflect the actual time of the patient encounter. VIRGILIO GALLARDO MD March 24, 2019 02:13
[2019-03-24 03:07] VITALS: BP 136/84; PULSE 88; RESP 18
== END 2019-03-24 03:20 | disposition home or self-care (01) ==
LOC: E/R 22:23
DX: J44.9 Chronic obstructive pulmonary disease, unspecified (principal); Z87.891 Personal history of nicotine dependence
CPT/HCPCS: 99282

== ENCOUNTER 2019-04-12 01:28 | Inpatient (IN) | payer OTHER ==
[~2019-04-12] VITALS: Ht 162.6 cm; Wt 53.1 kg
[2019-04-12 01:50] VITALS: Ht 162.6 cm; Wt 53.1 kg
[2019-04-12] MEDS ORDERED: ONDANSETRON 4 MG INJ IV PRN (03:00)
[2019-04-12] MEDS ORDERED: BISACODYL (EC) 5 MG TAB PO PRN (03:00)
[2019-04-12] MEDS ORDERED: DOCUSATE SODIUM 100 MG CAP PO PRN (03:00)
[2019-04-12] MEDS ORDERED: ACETAMINOPHEN 325 MG TAB PO PRN (03:00)
[2019-04-12] MEDS ORDERED: morphine 2 MG INJ IV PRN (03:00)
[2019-04-12] MEDS ORDERED: NACL 0.9% 3 ML SYG IV SCH (03:00)
[2019-04-12] MEDS: SOD CHLORIDE 0.9% 1,000 ML IV SCH ×2 (03:37→14:56)
[2019-04-12] MEDS ORDERED: GUAIFENESIN/DM 5ML CUP PO PRN (04:30)
[2019-04-12 04:31] VITALS: BP 125/85; PULSE 67; RESP 20
[2019-04-12] MEDS ORDERED: HYDROmorphONE 0.5 MG/0.5 ML SYG IV ONE (07:30)
[2019-04-12] MEDS ORDERED: LIDOCAINE 2% VISC 15 ML CUP PO ONE ×2 (07:30→09:00)
--- NOTE | 2019-04-12 07:39 | HP ---
Date/Time of Note Date/Time of Note DATE: 04/12/19 TIME: 07:23 Assessment/Plan VTE Prophylaxis SCD applied (from Nsg): Yes Pharmacological prophylaxis: NA/contraindicated Pharm contraindication: low risk/ambulating Assessment/Plan Hospital Course This is a 48-year female being admitted to the [facility] floor for: #1 partial small bowel obstruction: I did not receive imaging studies from the transferring facility. These have been urgently requested. In the meantime I will place an NG tube as the patient is agreeable. Will obtain a chest x-ray for placement. And put it on low wall suction. We will keep the patient n.p.o. IV fluid hydration with normal saline. Pain control. We will check a KUB and likely small bowel follow through in the AM.Dr. Tenorio of general surgery has already been consulted. #2 COPD: Stable #3 moderate gastritis/esophagitis: protonix #4. Deafness: Supportive care #5 dvt and gi prophylaxis: scds, protonix Further treatment strategy will be implemented as per the clinical course Result Diagram: 04/12/19 0347 04/12/19 0347 Results 24hrs Laboratory Tests Test 04/12/19 03:47 White Blood Count 3.1 #L Red Blood Count 3.69 L Hemoglobin 9.4 L Hematocrit 31.5 L Mean Corpuscular Volume 85.4 Mean Corpuscular Hemoglobin 25.5 L Mean Corpuscular Hemoglobin Concent 29.8 L Red Cell Distribution Width 23.1 H Platelet Count 256 Mean Platelet Volume 10.2 Immature Granulocytes % 0.300 Neutrophils % 81.9 H Lymphocytes % 14.2 L Monocytes % 2.3 Eosinophils % 0.0 Basophils % 1.3 Nucleated Red Blood Cells % 0.0 Immature Granulocytes # 0.010 Neutrophils # 2.5 Lymphocytes # 0.4 L Monocytes # 0.1 L Eosinophils # 0.0 Basophils # 0.0 Nucleated Red Blood Cells # 0.0 Prothrombin Time 13.2 Prothrombin Time Ratio 1.0 INR International Normalized Ratio 0.99 Activated Partial Thromboplast Time 26.8 Sodium Level 142 Potassium Level 3.4 L Chloride Level 110 Carbon Dioxide Level 23 Anion Gap 9 Blood Urea Nitrogen 6 L Creatinine 0.52 Est Glomerular Filtrat Rate mL/min > 60 Glucose Level 105 Calcium Level 8.4 Magnesium Level 1.7 Total Bilirubin 0.4 Direct Bilirubin 0.00 Indirect Bilirubin 0.4 Aspartate Amino Transf (AST/SGOT) 40 Alanine Aminotransferase (ALT/SGPT) 31 Alkaline Phosphatase 77 Total Protein 6.7 Albumin 3.5 Globulin 3.20 Albumin/Globulin Ratio 1.09 Triglycerides Level 56 Cholesterol Level 165 LDL Cholesterol, Calculated 66 HDL Cholesterol 88 Cholesterol/HDL Ratio 1.8 Thyroid Stimulating Hormone (TSH) 0.510 HPI/ROS Admit Date/Time Admit Date/Time Apr 12, 2019 at 01:49 Hx of Present Illness Chief complaint: Abdominal pain Of note I did not receive any history and physical documentation or imaging studies from the transferring facility, we are attempting to obtain these in the meantime. This is a 48-year-old female who originally presented to outside hospital with symptoms of abdominal pain. Patient reports that she started having abdominal pain yesterday. She had felt like something burst 3 times. She reported nausea but no vomiting. She denies any chest pain or shortness of breath or fevers. She did have an NG tube attempted to be inserted at the transfer facility however she reported that she felt pain to refused. Patient had a CT scan of the abdomen pelvis at the transferring facility, I do not currently have the report or the imaging studies with me. However based on my discussion with the transferring physician Dr. Summers, the patient has a partial small bowel obstruction. The accepting surgeon surgeon Dr. Tenorio has also spoken with the transferring physician regarding the partial SBO. I have asked the nurse to obtain the CT study reports as well as the HPI and any other pertinent laboratory results as soon as possible. Allergies: Contrast oral IV, apple, aspirin, Haldol Medications: None ROS Const: As per HPI Eyes : No pain discharge or redness or change in visual acuity ENT: No pain, sore throat, congestion, congestion, dysphagia or discharge Respiratory: No shortness of breath, cough, sputum, wheezing, or pleuritic pain Cardiovascular: No chest pain, palpitation, PND, or edema GI : As per HPI Genitourinary: No dysuria, hematuria, flank pain , discharge or CVA tenderness Musculoskeletal: No joint pain, back pain, neck pain, restricted range of motion in neck or joints Skin: No rash, bruising or hives Neuro: No headache, dizziness, syncope, seizure, focal weakness Endocrine: No polyuria, polydipsia, temperature intolerance Psych: No hallucination, depression, anxiety or suicidal ideation PMH/Family/Social Past Medical History Day for the last 5 years, history of COPD, moderate gastritis/esophagitis, moderate mitral regurg, previous history of alcohol abuse Medications Current Medications Sodium Chloride 1,000 ml @ 80 mls/hr [id number] IV Last administered on 04/12/19at 03:37; Admin Dose 80 MLS/HR; Start 04/12/19 at 02:47 IV Flush (NS 3 ml) 3 ml PER PROTOCOL IV ; Start 04/12/19 at 03:00 Ondansetron HCl (Zofran Inj) 4 mg Q6H PRN IV NAUSEA/VOMITING; Start 04/12/19 at 03:00 Acetaminophen (Tylenol Tab) 650 mg Q6H PRN PO .PAIN 1-3 OR TEMP; Start 04/12/19 at 03:00 Morphine Sulfate (morphine) 2 mg Q4H PRN IV .SEVERE PAIN 7-10; Start 04/12/19 at 03:00 Docusate Sodium (Colace) 100 mg Q12H PRN PO .CONSTIPATION; Start 04/12/19 at 03:00 Bisacodyl (Dulcolax) 5 mg DAILY PRN PO .CONSTIPATION; Start 04/12/19 at 03:00 Guaifenesin/ Dextromethorphan (Robitussin Dm Liquid Cup) 5 ml Q4H PRN PO productive cough; Start 04/12/19 at 04:30 Hydromorphone HCl (Dilaudid) 0.5 mg ONCE ONCE IV ; Start 04/12/19 at 07:30; Stop 04/12/19 at 07:31 Lidocaine (Xylocaine (Viscous)) 15 ml ONCE ONCE PO ; Start 04/12/19 at 07:30; Stop 04/12/19 at 07:31 Coded Allergies: Iodinated Contrast- Oral and IV Dye (Verified Allergy, Severe, SOB, 02/12/19) apple (Verified Allergy, Severe, ANALPHYLAXIS, 03/30/18) aspirin (Verified Allergy, Severe, RESP DISTRESS "IT ALMOST KILLED ME", 03/30/18) haloperidol (Verified Allergy, Intermediate, 03/30/18) Past Surgical History Past Surgical Hx: no surgical history, other Family History Significant Family History: no pertinent family hx Social History Alcohol Use: none Smoking Status: Current every day smoker Drug Use: none Exam/Review of Systems Vital Signs Vitals Vital Signs Date Temp Pulse Resp B/P (MAP) Pulse Ox O2 O2 Flow FiO2 Time Delivery Rate 04/12/19 98.6 67 20 125/85 98 04:31 (98) Exam Exam General: Patient is currently lying in bed, she does have pain on palpation of her abdomen HEENT: Atraumatic, normocephalic. The pupils are equal, round and reactive. Extraocular motor are intact, patient is deaf in both ears Neck: Supple with full range of motion. No rigidity or meningismus Chest: Nontender Lungs: Clear to auscultation bilaterally no crackles rales or wheezing Heart: Normal S1-S2, Regular rhythm and rate. No murmur, S3, or S4 Abdomen: Soft , tenderness palpation over the lower abdominal quadrants, mild guarding. Extremities: Normal to inspection, no edema no cyanosis Neurologic: Normal mental status, speech normal, cranial nerves II through XII are intact, motor and sensory are intact, no focal weakness REYNA RUSHING Apr 12, 2019 07:33
[2019-04-12 08:00] VITALS: BP 125/66; PULSE 62; RESP 20
[2019-04-12] MEDS ORDERED: FAMOTIDINE 20 MG INJ IV SCH (09:00)
--- NOTE | 2019-04-12 12:41 | QN ---
Documentation Comment 48 yo F who is also deaf bilaterally, anemia/GIB, homeless, copd presented to osh w/abd pain/nausea reportedly having possible sbo... No imaging reports available from referring facility yet. No nausea/vomiting at present. Abd pain present. Cont.bowel rest, ivf,pain meds. Follow-up x-ray findings and surgical recommendations. Patient was seen in collaboration with SEPIDEH Teixeira NP Apr 12, 2019 12:41
--- NOTE | 2019-04-12 13:04 | CONS ---
Assessment/Plan Assessment/Plan Hospital Course (Demo Recall) 1. Abdominal pain with concern for small bowel obstruction; prior imaging studies and available; KUB noted without obstruction pattern; + bowel function -Obtain CT images from outside hospital -Agree with SBFT -N.p.o. for now -Ambulate 2. Abdominal pain: -Pain management 3. Leukopenia: -Trend 4.Hypochromic anemia: -Monitor and transfuse as needed 5. Hypokalemia: -replete and monitor 6. Emphysema/COPD history: Asymptomatic -Supportive 7. Gastritis esophagitis history -PPI Thank you. Patient seen and examined in collaboration with Dr. Jack Tenorio. Consultation Date/Type/Reason Admit Date/Time Apr 12, 2019 at 01:49 Date of Consultation: Apr 12, 2019 Type of Consult surgical Reason for Consultation Abdominal pain, concern for small bowel obstruction Requesting Provider: REYNA RUSHING Date/Time of Note DATE: 04/12/19 TIME: 12:52 Hx of Present Illness Haydee Renteria is a 48-year-old woman with past medical history of emphysema, mitral valve regurgitation, COPD, gastritis/esophagitis, who presented to outside hospital with complaints of abdominal pain. Abdominal pain is in the right lower quadrant sharp in nature. She denies fevers, chills, chest pain, palpitations, nausea, vomiting, seizure, rash. She reports having flatus as well as bowel movements with hard stool. At outside facility she was reportedly found to have a partial small bowel obstruction. Unfortunately studies were not sent over from outside facility. At this time we are attempting to obtain them. In the meantime she has had a abdominal x-ray which showed nonobstructive bowel gas patterns. Laboratory findings significant for leukopenia. General surgery was asked to evaluate. 12 point review of systems was performed and is negative except as stated in HPI. Past Medical History As above Home Meds No Active Prescriptions or Reported Meds Medications Current Medications Sodium Chloride 1,000 ml @ 80 mls/hr [id number] IV Last administered on 04/12/19at 03:37; Admin Dose 80 MLS/HR; Start 04/12/19 at 02:47 IV Flush (NS 3 ml) 3 ml PER PROTOCOL IV ; Start 04/12/19 at 03:00 Ondansetron HCl (Zofran Inj) 4 mg Q6H PRN IV NAUSEA/VOMITING; Start 04/12/19 at 03:00 Acetaminophen (Tylenol Tab) 650 mg Q6H PRN PO .PAIN 1-3 OR TEMP; Start 04/12/19 at 03:00 Morphine Sulfate (morphine) 2 mg Q4H PRN IV .SEVERE PAIN 7-10; Start 04/12/19 at 03:00 Docusate Sodium (Colace) 100 mg Q12H PRN PO .CONSTIPATION; Start 04/12/19 at 03:00 Bisacodyl (Dulcolax) 5 mg DAILY PRN PO .CONSTIPATION; Start 04/12/19 at 03:00 Guaifenesin/ Dextromethorphan (Robitussin Dm Liquid Cup) 5 ml Q4H PRN PO productive cough; Start 04/12/19 at 04:30 Famotidine (Pepcid Iv) 20 mg DAILY IV Last administered on 04/12/19at 09:16; Admin Dose 20 MG; Start 04/12/19 at 09:00 Allergies: Coded Allergies: Iodinated Contrast- Oral and IV Dye (Verified Allergy, Severe, SOB, 02/12/19) apple (Verified Allergy, Severe, ANALPHYLAXIS, 03/30/18) aspirin (Verified Allergy, Severe, RESP DISTRESS "IT ALMOST KILLED ME", 03/30/18) haloperidol (Verified Allergy, Intermediate, 03/30/18) Past Surgical History Past Surgical Hx: no surgical history, other Social History Alcohol Use: none Smoking Status: Current every day smoker Drug Use: none Exam/Review of Systems Exam Vitals Vital Signs Date Temp Pulse Resp B/P (MAP) Pulse Ox O2 O2 Flow FiO2 Time Delivery Rate 04/12/19 98.8 62 20 125/66 94 08:00 (85) Intake and Output 04/11/19 04/11/19 04/12/19 1515:00 23:00 07:00 IntakeIntake Total 160 ml BalanceBalance 160 ml Constitutional: alert, oriented, well developed Psych: nl mood/affect, anxiety (Moderate) Head: normocephalic, atraumatic Eyes: nl conjunctiva, EOMI, nl lids, nl sclera ENMT: nl external ears & nose, nl lips & teeth, nl nasal mucosa & septum Neck: supple, non-tender; No jvd Respiratory: normal air movement, congested cough Cardiovascular: regular rate and rhythm Gastrointestinal: soft, tender; No distended, No rebound or guarding (Minimal, right lower quadrant) Genitourinary - Female: nl adnexae, nl external genitalia Extremities: normal pulses Neurological: nl mental status, nl speech, nl strength Skin: nl turgor; No rash or lesions Lymph: nl lymph nodes Results Result Diagram: 04/12/19 0347 04/12/19 0347 Results 24hrs Laboratory Tests Test 04/12/19 03:45 04/12/19 03:47 Serum HCG, Qualitative NEGATIVE White Blood Count 3.1 #L Red Blood Count 3.69 L Hemoglobin 9.4 L Hematocrit 31.5 L Mean Corpuscular Volume 85.4 Mean Corpuscular Hemoglobin 25.5 L Mean Corpuscular Hemoglobin Concent 29.8 L Red Cell Distribution Width 23.1 H Platelet Count 256 Mean Platelet Volume 10.2 Immature Granulocytes % 0.300 Neutrophils % 81.9 H Lymphocytes % 14.2 L Monocytes % 2.3 Eosinophils % 0.0 Basophils % 1.3 Nucleated Red Blood Cells % 0.0 Immature Granulocytes # 0.010 Neutrophils # 2.5 Lymphocytes # 0.4 L Monocytes # 0.1 L Eosinophils # 0.0 Basophils # 0.0 Nucleated Red Blood Cells # 0.0 Prothrombin Time 13.2 Prothrombin Time Ratio 1.0 INR International Normalized Ratio 0.99 Activated Partial Thromboplast Time 26.8 Sodium Level 142 Potassium Level 3.4 L Chloride Level 110 Carbon Dioxide Level 23 Anion Gap 9 Blood Urea Nitrogen 6 L Creatinine 0.52 Est Glomerular Filtrat Rate mL/min > 60 Glucose Level 105 Calcium Level 8.4 Magnesium Level 1.7 Total Bilirubin 0.4 Direct Bilirubin 0.00 Indirect Bilirubin 0.4 Aspartate Amino Transf (AST/SGOT) 40 Alanine Aminotransferase (ALT/SGPT) 31 Alkaline Phosphatase 77 Total Protein 6.7 Albumin 3.5 Globulin 3.20 Albumin/Globulin Ratio 1.09 Triglycerides Level 56 Cholesterol Level 165 LDL Cholesterol, Calculated 66 HDL Cholesterol 88 Cholesterol/HDL Ratio 1.8 Thyroid Stimulating Hormone (TSH) 0.510 Medications Medication Current Medications Sodium Chloride 1,000 ml @ 80 mls/hr [id number] IV Last administered on 04/12/19at 03:37; Admin Dose 80 MLS/HR; Start 04/12/19 at 02:47 IV Flush (NS 3 ml) 3 ml PER PROTOCOL IV ; Start 04/12/19 at 03:00 Ondansetron HCl (Zofran Inj) 4 mg Q6H PRN IV NAUSEA/VOMITING; Start 04/12/19 at 03:00 Acetaminophen (Tylenol Tab) 650 mg Q6H PRN PO .PAIN 1-3 OR TEMP; Start 04/12/19 at 03:00 Morphine Sulfate (morphine) 2 mg Q4H PRN IV .SEVERE PAIN 7-10; Start 04/12/19 at 03:00 Docusate Sodium (Colace) 100 mg Q12H PRN PO .CONSTIPATION; Start 04/12/19 at 03:00 Bisacodyl (Dulcolax) 5 mg DAILY PRN PO .CONSTIPATION; Start 04/12/19 at 03:00 Guaifenesin/ Dextromethorphan (Robitussin Dm Liquid Cup) 5 ml Q4H PRN PO productive cough; Start 04/12/19 at 04:30 Famotidine (Pepcid Iv) 20 mg DAILY IV Last administered on 04/12/19at 09:16; Admin Dose 20 MG; Start 04/12/19 at 09:00 MINH BUTTS NP Apr 12, 2019 13:04
[2019-04-12 14:00] VITALS: BP 129/81; PULSE 84; RESP 18
[2019-04-12] MEDS ORDERED: LORAZEPAM 2 MG INJ IV ONE (16:00)
[2019-04-12] MEDS ORDERED: SOD CHLORIDE 0.9% 100 ML ONE (16:05)
[2019-04-12] MEDS ORDERED: IOHEXOL 300MG/ML 150 ML BTL ONE ×2 (16:05)
[2019-04-12 19:30] VITALS: BP 144/81; PULSE 79; RESP 17
[2019-04-12] MEDS ORDERED: NICOTINE POLACRILEX 2 MG GUM BUCCAL PRN (20:30)
[2019-04-12] MEDS ORDERED: LORAZEPAM 2 MG INJ IV PRN (20:30)
[2019-04-12] MEDS ORDERED: NICOTINE (21 MG/24 HR) PATCH TRANSDERM SCH (20:30)
--- NOTE | 2019-04-13 09:07 | DS ---
Date/Time of Note Date/Time of Note DATE: 04/13/19 TIME: 09:06 Discharge Summary Admission/Discharge Info Admit Date/Time Apr 12, 2019 at 01:49 Discharge Date/Time Apr 12, 2019 at 20:25 (AGAINST MEDICAL ADVICE) Discharge Diagnosis Possible small bowel obstruction. Resolved Noncompliance Tobacco use Homelessness Consults ,surgery Procedures 04/12/2019: Small bowel follow-through IMPRESSION: 1. Unremarkable small bowel with a transit time of 60-90 minutes. There is no evidence of small bowel obstruction, nor is there any evidence of colonic obstruction. Hospital Course 48 yo F who is also deaf bilaterally, anemia/GIB, homeless, copd presented to osh w/abd pain/nausea reportedly having possible sbo... Patient's small bowel follow-through was negative for obstruction. She did not have any nausea or vomiting. She had no abnormal bowel sounds, passing flatus and had large bowel movements. Last plan was to start patient on a diet and advance as tolerated, she wanted to go out and smoke. This was not allowed due to hospital policy as such, she decided to leave AGAINST MEDICAL ADVICE. Patient was also noted with defecating in hallway, patient room and throwing money and staff on staff. She is very noncompliant. Despite our efforts, patient had decided to leave AGAINST MEDICAL ADVICE. Patient has normal mental status and full decisional capacity. Patient understood her condition and the risk of leaving AMA, including but not limited to permanent disability, etc., and had an opportunity to ask questions about own medical condition. The patient has been informed that the paient may return for care anytime and has been referred to primary care provider for follow-up as soon as possible. Case discussed with Home Meds No Active Prescriptions or Reported Meds Primary Care Provider Care Physician No Primary SEPIDEH LEWIS NP Apr 13, 2019 09:07
== END 2019-04-12 20:25 | disposition left against medical advice (07) | DRG 390 ==
LOC: PP2 01:49
PROVIDERS: ADMIT Family Medicine; ATTEND Family Medicine
DX: K56.609 Unspecified intestinal obstruction, unspecified as to partial versus complete obstruction (principal); J44.9 Chronic obstructive pulmonary disease, unspecified; K29.70 Gastritis, unspecified, without bleeding; K20.9 Esophagitis, unspecified; H91.90 Unspecified hearing loss, unspecified ear; Z91.19 Patient's noncompliance with other medical treatment and regimen; Z59.0 Homelessness
CPT/HCPCS: 74018; 74250; 80053; 80061; 83735; 84443; 84703; 85025; 85610; 85730; 87081; J1170; J2060; J2405; J7030; Q9967

== ENCOUNTER 2019-04-21 11:18 | Inpatient (IN) | payer OTHER ==
[~2019-04-21] VITALS: Ht 165.1 cm; Wt 47.8 kg
[2019-04-21 14:46] VITALS: BP 140/93; RESP 18
[2019-04-21 15:23] VITALS: Ht 165.1 cm; Wt 47.8 kg
[2019-04-21] MEDS: SOD CHLORIDE 0.9% 1,000 ML IV SCH (16:25)
[2019-04-21 16:30] VITALS: BP 142/76; PULSE 88; RESP 16
[2019-04-21] MEDS ORDERED: ONDANSETRON 4 MG INJ IV PRN (16:30)
[2019-04-21] MEDS ORDERED: ZOLPIDEM 5 MG TAB PO PRN (16:30)
[2019-04-21] MEDS ORDERED: ACETAMINOPHEN 325 MG TAB PO PRN (16:30)
[2019-04-21] MEDS ORDERED: NACL 0.9% 3 ML SYG IV SCH (16:30)
[2019-04-21] MEDS ORDERED: DOCUSATE SODIUM 100 MG CAP PO PRN (16:30)
--- NOTE | 2019-04-21 18:11 | HP ---
Date/Time of Note Date/Time of Note DATE: 04/21/19 TIME: 18:07 Assessment/Plan VTE Prophylaxis SCD applied (from Nsg): Yes Pharmacological prophylaxis: NA/contraindicated Pharm contraindication: low risk/ambulating Lines/Catheters IV Catheter Type (from Nrsg): Saline Lock Assessment/Plan Hospital Course 1. Pancreatitis secondary to alcohol abuse N.p.o. IV fluids Cessation advised 2. Alcohol abuse Last use was yesterday Banana bag and Ativan as needed 3. 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 Patient was recently hospitalized for possible small bowel obstruction which did resolve patient did leave AMA after having been disruptive during hospitalization. Patient does report to daily alcohol consumption and presented to an outside facility with abdominal pain was found to have an elevated lipase. Patient states that she was told th at she had a abscess or cyst by her pancreas but previous CT abdomen done 1 month ago at this facility was negative for any significant intra-abdominal process. Patient was transferred due to capitation, patient states that her last drink was yesterday. Patient continues to report a sharp pain in her abdomen. ROS Constitutional: no complaints, improved Eyes: no complaints ENT: no complaints Respiratory: no complaints Cardiovascular: no complaints Gastrointestinal: pain Genitourinary: no complaints Musculoskeletal: no complaints Skin: no complaints Neurologic: no complaints Endocrine: no complaints Lymphatic: no complaints Psychological: no complaints, nl mood/affect Immunologic: no complaints PMH/Family/Social Past Medical History As per HPI Medications Current Medications Sodium Chloride 1,000 ml @ 125 mls/hr Q8H IV Last administered on 04/21/19at 16:25; Admin Dose 125 MLS/HR; Start 04/21/19 at 16:05 IV Flush (NS 3 ml) 3 ml PER PROTOCOL IV ; Start 04/21/19 at 16:30 Ondansetron HCl (Zofran Inj) 4 mg Q6H PRN IV NAUSEA/VOMITING; Start 04/21/19 at 16:30 Acetaminophen (Tylenol Tab) 650 mg Q6H PRN PO .PAIN 1-3 OR TEMP Last administered on 04/21/19at 16:26; Admin Dose 650 MG; Start 04/21/19 at 16:30 Acetaminophen/ Hydrocodone Bitart ([place] (5/325)) 1 tab Q6H PRN PO .MOD PAIN 4- 6; Start 04/21/19 at 16:30 Morphine Sulfate (morphine) 2 mg Q4H PRN IV .SEVERE PAIN 7-10; Start 04/21/19 at 16:30 Docusate Sodium (Colace) 100 mg Q12H PRN PO .CONSTIPATION; Start 04/21/19 at 16:30 Zolpidem Tartrate (Ambien) 5 mg QHS PRN PO .INSOMNIA; Start 04/21/19 at 16:30 Coded Allergies: Iodinated Contrast- Oral and IV Dye (Verified Allergy, Severe, SOB, 02/12/19) apple (Verified Allergy, Severe, ANALPHYLAXIS, 03/30/18) aspirin (Verified Allergy, Severe, RESP DISTRESS "IT ALMOST KILLED ME", 03/30/18) haloperidol (Verified Allergy, Intermediate, 03/30/18) Past Surgical History Past Surgical Hx: no surgical history, other Family History Significant Family History: no pertinent family hx Social History Alcohol Use: heavy Smoking Status: Current every day smoker Exam/Review of Systems Vital Signs Vitals Vital Signs Date Temp Pulse Resp B/P (MAP) Pulse Ox O2 O2 Flow FiO2 Time Delivery Rate 04/21/19 98.4 88 16 142/76 98 Room Air 16:30 (98) Exam Constitutional: alert, oriented Respiratory: clear to auscultation Cardiovascular: regular rate and rhythm Gastrointestinal: soft, tender; No distended Musculoskeletal: nl extremities to inspection VANDANA MURCIA Apr 21, 2019 18:11
[2019-04-21] MEDS: morphine 2 MG INJ IV PRN (18:13)
[2019-04-21 20:24] VITALS: BP 154/72; PULSE 76; RESP 18
[2019-04-21] MEDS ORDERED: CEFTRIAXONE 1 GM/50 ML (PMX) 50 ML IVPB SCH (20:30)
[2019-04-21] MEDS ORDERED: MULTIVITAMINS 10 ML, THIAMINE 100 MG, FOLIC ACID 1 MG in SOD CHLORIDE 0.9% 1,000 ML IVPB SCH (21:00)
[2019-04-21] MEDS: LORAZEPAM 2 MG INJ IV PRN (21:58)
[2019-04-22] MEDS: SOD CHLORIDE 0.9% 1,000 ML IV SCH ×2 (00:05→07:08)
[2019-04-22 02:00] VITALS: BP 148/86; PULSE 84; RESP 18
[2019-04-22] MEDS: morphine 2 MG INJ IV PRN ×2 (06:36→22:42)
[2019-04-22 07:30] VITALS: BP 133/87; PULSE 81; RESP 18
[2019-04-22] MEDS: LORAZEPAM 2 MG INJ IV PRN (08:14)
--- NOTE | 2019-04-22 09:55 | PSY ---
Date/Time of Note Date/Time of Note DATE: 04/22/19 TIME: 09:49 Psychiatric Subjective Eval Consent Pt consented to telemedicine: No Subjective Evaluation Patient location: inpatient History of present illness Patient is a 48-year-old female with a history of alcohol abuse and pancreatitis who is currently admitted for abdominal pain. On a face to face evaluation, patient unable to speak, communication done by writing.Patient reports feeling sad over the loss of her friend at the transitional living, but denies hearing voices, denies suicidal ideation and contracted for safety. Risk and benefit of anti depressant explained but she declined any psych meds. Past psychiatric history History of depression per patient Hospitalization: other Medical history Problems Medical Problems: (1) Bronchitis Status: Acute (2) Chest pain Status: Acute (3) Community acquired pneumonia Status: Acute (4) COPD (chronic obstructive pulmonary disease) Status: Acute (5) COPD exacerbation Status: Acute (6) Left against medical advice Status: Acute Allergies: Coded Allergies: Iodinated Contrast- Oral and IV Dye (Verified Allergy, Severe, SOB, 02/12/19) apple (Verified Allergy, Severe, ANALPHYLAXIS, 03/30/18) aspirin (Verified Allergy, Severe, RESP DISTRESS "IT ALMOST KILLED ME", 03/30/18) haloperidol (Verified Allergy, Intermediate, 03/30/18) Substance Abuse Substance abuse history: Yes (Etoh abuse) Prior substance abuse treatmen: No Social History Marital status: other DPA/Conservatorship: No Psychiatric Objective Eval Review of Systems: Review of Systems: Not Applicable Physical Examination: Physical Examination: Not Applicable Mental Status Examination: Appearance: Disheveled Eye Contact: Poor Behavior: Suspicious, Guarded Speech: Soft AFFECT: Anxious Insight: Severe Judgement: Severe Attention Span: Distractible Laboratory Results Laboratory Tests Test 04/22/19 03:00 04/22/19 06:52 04/22/19 09:21 Urine Color YELLOW Urine Clarity CLEAR Urine pH 5.0 Urine Specific [place] 1.015 Urine Ketones 2+ mg/dL Urine Nitrite NEGATIVE mg/dL Urine Bilirubin NEGATIVE mg/dL Urine Urobilinogen NEGATIVE mg/dL Urine Leukocyte Esterase TRACE Jackelin/ul Urine Microscopic RBC 2 /HPF Urine Microscopic WBC 26 /HPF Urine Hemoglobin NEGATIVE mg/dL Urine Glucose NEGATIVE mg/dL Urine Total Protein NEGATIVE mg/dl White Blood Count 5.3 10^3/ul Red Blood Count 3.76 10^6/ul Hemoglobin 9.3 g/dl Hematocrit 31.5 % Mean Corpuscular Volume 83.8 fl Mean Corpuscular Hemoglobin 24.7 pg Mean Corpuscular 29.5 g/dl Hemoglobin Concent Red Cell Distribution Width 22.4 % Platelet Count 277 10^3/UL Mean Platelet Volume 10.1 fl Immature Granulocytes % 0.200 % Neutrophils % 62.0 % Lymphocytes % 23.4 % Monocytes % 9.1 % Eosinophils % 3.2 % Basophils % 2.1 % Nucleated Red Blood Cells % 0.0 /100WBC Immature Granulocytes # 0.010 10^3/ul Neutrophils # 3.3 10^3/ul Lymphocytes # 1.2 10^3/ul Monocytes # 0.5 10^3/ul Eosinophils # 0.2 10^3/ul Basophils # 0.1 10^3/ul Nucleated Red Blood Cells # 0.0 10^3/ul Sodium Level 138 mmol/L Potassium Level 3.9 mmol/L Chloride Level 106 mmol/L Carbon Dioxide Level 22 mmol/L Anion Gap 10 Blood Urea Nitrogen 6 mg/dl Creatinine 0.53 mg/dl Est Glomerular Filtrat > 60 mL/min Rate mL/min Glucose Level 58 mg/dl Hemoglobin A1c 4.9 % Calcium Level 7.9 mg/dl Phosphorus Level 3.0 mg/dl Magnesium Level 1.7 mg/dl Lipase 125 U/L Bedside Glucose 68 mg/dL Assessment and Plan Assessment/Diagnosis Diagnosis Major Depressive Disorder Recurrent Recommendation/Plan Medication Management Declined Multiple antipsychotics: No Psychotherapy Provide supportive therapy Discharge Disposition: Other Legal Status: Voluntary VALENTE GODWIN NP Apr 22, 2019 09:55
[2019-04-22] MEDS ORDERED: DEXTROSE 5%-0.45% NACL 1,000 ML IV SCH (10:00)
[2019-04-22 13:00] VITALS: BP 132/72; PULSE 77; RESP 18
--- NOTE | 2019-04-22 15:56 | PN ---
Date/Time of Note Date/Time of Note DATE: 04/22/19 TIME: 15:54 Assessment/Plan VTE Prophylaxis Risk score (from Nsg)>0 risk: 1 SCD applied (from Nsg): Yes Pharmacological prophylaxis: heparin Lines/Catheters IV Catheter Type (from Nrs): Saline Lock Assessment/Plan Hospital Course 48 yo female with deafness, homelessness, etoh use d/o presents with alcohol pancreatitis Alcoholic pancreatitis: - Resolved, pain controlled - Diet as tolerated Alcohol use d/o: - Counseled on cessation - no signs of withdrawal Deafenss - Stable Dc tomorrow Result Diagram: 04/22/1952 04/22/1952 Results 24hrs Laboratory Tests Test 04/22/19 03:00 04/22/19 06:52 04/22/19 09:21 04/22/19 11:15 Urine Color YELLOW Urine Clarity CLEAR Urine pH 5.0 Urine Specific 1.015 [place] Urine Ketones 2+ H Urine Nitrite NEGATIVE Urine Bilirubin NEGATIVE Urine Urobilinogen NEGATIVE Urine Leukocyte TRACE A Esterase Urine Microscopic 2 RBC Urine Microscopic 26 H WBC Urine Hemoglobin NEGATIVE Urine Glucose NEGATIVE Urine Total Protein NEGATIVE White Blood Count 5.3 # Red Blood Count 3.76 L Hemoglobin 9.3 L Hematocrit 31.5 L Mean Corpuscular 83.8 Volume Mean Corpuscular 24.7 L Hemoglobin Mean Corpuscular 29.5 L Hemoglobin Concent Red Cell 22.4 H Distribution Width Platelet Count 277 Mean Platelet Volume 10.1 Immature 0.200 Granulocytes % Neutrophils % 62.0 Lymphocytes % 23.4 Monocytes % 9.1 Eosinophils % 3.2 Basophils % 2.1 H Nucleated Red Blood 0.0 Cells % Immature 0.010 Granulocytes # Neutrophils # 3.3 Lymphocytes # 1.2 Monocytes # 0.5 Eosinophils # 0.2 Basophils # 0.1 Nucleated Red Blood 0.0 Cells # Sodium Level 138 Potassium Level 3.9 Chloride Level 106 Carbon Dioxide Level 22 Anion Gap 10 Blood Urea Nitrogen 6 L Creatinine 0.53 Est Glomerular > 60 Filtrat Rate mL/min Glucose Level 58 L Hemoglobin A1c 4.9 Calcium Level 7.9 L Phosphorus Level 3.0 Magnesium Level 1.7 Lipase 125 Bedside Glucose 68 L 74 Test 04/22/19 15:31 Bedside Glucose 111 Subjective 24 Hr Interval Summary Free Text/Dictation Only complaint is of hunger from being NPO Very much wants to eat No s/s of withdrawal Deaf, communicates by writing Exam/Review of Systems Exam Vitals Vital Signs Date Temp Pulse Resp B/P (MAP) Pulse Ox O2 O2 Flow FiO2 Time Delivery Rate 04/22/19 98.0 77 18 132/72 97 Room Air 13:00 (92) Intake and Output 04/21/19 04/21/19 04/22/19 1515:00 23:00 07:00 IntakeIntake Total 775 ml OutputOutput Total 100 ml 500 ml BalanceBalance 675 ml -500 ml Constitutional: alert, oriented, well developed Psych: no complaints, nl mood/affect Head: normocephalic, atraumatic Eyes: nl conjunctiva, EOMI, nl lids, nl sclera, PERRL ENMT: nl external ears & nose, nl lips & teeth, nl nasal mucosa & septum Neck: supple, non-tender Respiratory: clear to auscultation, normal air movement Cardiovascular: regular rate and rhythm, nl pulses Gastrointestinal: soft, nl liver, spleen, non-tender Musculoskeletal: nl extremities to inspection, nl gait and stance Extremities: normal pulses Neurological: COMMERCIAL FINANCE MANAGER II-XII intact, nl mental status, nl speech, nl strength Skin: nl turgor; No rash or lesions Lymph: nl lymph nodes Results Results 24hrs Laboratory Tests Test 04/22/19 03:00 04/22/19 06:52 04/22/19 09:21 04/22/19 11:15 Urine Color YELLOW Urine Clarity CLEAR Urine pH 5.0 Urine Specific 1.015 [place] Urine Ketones 2+ H Urine Nitrite NEGATIVE Urine Bilirubin NEGATIVE Urine Urobilinogen NEGATIVE Urine Leukocyte TRACE A Esterase Urine Microscopic 2 RBC Urine Microscopic 26 H WBC Urine Hemoglobin NEGATIVE Urine Glucose NEGATIVE Urine Total Protein NEGATIVE White Blood Count 5.3 # Red Blood Count 3.76 L Hemoglobin 9.3 L Hematocrit 31.5 L Mean Corpuscular 83.8 Volume Mean Corpuscular 24.7 L Hemoglobin Mean Corpuscular 29.5 L Hemoglobin Concent Red Cell 22.4 H Distribution Width Platelet Count 277 Mean Platelet Volume 10.1 Immature 0.200 Granulocytes % Neutrophils % 62.0 Lymphocytes % 23.4 Monocytes % 9.1 Eosinophils % 3.2 Basophils % 2.1 H Nucleated Red Blood 0.0 Cells % Immature 0.010 Granulocytes # Neutrophils # 3.3 Lymphocytes # 1.2 Monocytes # 0.5 Eosinophils # 0.2 Basophils # 0.1 Nucleated Red Blood 0.0 Cells # Sodium Level 138 Potassium Level 3.9 Chloride Level 106 Carbon Dioxide Level 22 Anion Gap 10 Blood Urea Nitrogen 6 L Creatinine 0.53 Est Glomerular > 60 Filtrat Rate mL/min Glucose Level 58 L Hemoglobin A1c 4.9 Calcium Level 7.9 L Phosphorus Level 3.0 Magnesium Level 1.7 Lipase 125 Bedside Glucose 68 L 74 Test 04/22/19 15:31 Bedside Glucose 111 Medications Medication Current Medications IV Flush (NS 3 ml) 3 ml PER PROTOCOL IV ; Start 04/21/19 at 16:30 Ondansetron HCl (Zofran Inj) 4 mg Q6H PRN IV NAUSEA/VOMITING; Start 04/21/19 at 16:30 Acetaminophen (Tylenol Tab) 650 mg Q6H PRN PO .PAIN 1-3 OR TEMP Last administered on 04/21/19at 16:26; Admin Dose 650 MG; Start 04/21/19 at 16:30 Acetaminophen/ Hydrocodone Bitart ([place] (5/325)) 1 tab Q6H PRN PO .MOD PAIN 4- 6; Start 04/21/19 at 16:30 Morphine Sulfate (morphine) 2 mg Q4H PRN IV .SEVERE PAIN 7-10 Last administered on 04/22/19at 06:36; Admin Dose 2 MG; Start 04/21/19 at 16:30 Docusate Sodium (Colace) 100 mg Q12H PRN PO .CONSTIPATION; Start 04/21/19 at 16:30 Zolpidem Tartrate (Ambien) 5 mg QHS PRN PO .INSOMNIA; Start 04/21/19 at 16:30 GILBERTO SAMANO MD Apr 22, 2019 15:56
[2019-04-22] MEDS: HYDROCODONE/APAP (5/325) TAB PO PRN (17:57)
[2019-04-22 19:53] VITALS: BP 139/88; PULSE 76; RESP 16
[2019-04-23] MEDS: ALBUTEROL/IPRATROPIUM (NEB) 3 ML AMP HHN PRN ×3 (02:36→18:58)
[2019-04-23 02:50] VITALS: BP 140/75; PULSE 83; RESP 16
[2019-04-23 07:29] VITALS: BP 137/74; PULSE 80; RESP 18
[2019-04-23] MEDS: HYDROCODONE/APAP (5/325) TAB PO PRN (09:38)
[2019-04-23 13:59] VITALS: BP 126/76; PULSE 81; RESP 18
--- NOTE | 2019-04-23 14:49 | PN ---
Date/Time of Note Date/Time of Note DATE: 04/23/19 TIME: 14:49 Assessment/Plan VTE Prophylaxis Risk score (from Nsg)>0 risk: 2 SCD applied (from Nsg): Yes Pharmacological prophylaxis: heparin Lines/Catheters IV Catheter Type (from Nrsg): Saline Lock Assessment/Plan Hospital Course 48 yo female with deafness, homelessness, etoh use d/o presents with alcohol pancreatitis Alcoholic pancreatitis: - Resolved, pain controlled - Diet as tolerated Alcohol use d/o: - Counseled on cessation - no signs of withdrawal Deafenss - Stable Dc tomorrow Result Diagram: 04/22/19 0652 04/22/19 0652 Results 24hrs Laboratory Tests Test 04/22/19 15:31 Bedside Glucose 111 Subjective 24 Hr Interval Summary Free Text/Dictation Feels well Says she wants to leave tomorrow Mild lower abdominal pain, no dysuria at all. Actually improved with urination Exam/Review of Systems Exam Vitals Vital Signs Date Temp Pulse Resp B/P (MAP) Pulse Ox O2 O2 Flow FiO2 Time Delivery Rate 04/23/19 98.4 81 18 126/76 99 13:59 (93) 04/23/19 21 02:39 04/22/19 Room Air 19:53 Intake and Output 04/22/19 04/22/19 04/23/19 1515:00 23:00 07:00 IntakeIntake Total 1211.2 ml OutputOutput Total 800 ml BalanceBalance 1211.2 ml -800 ml Constitutional: alert, oriented, well developed Psych: no complaints, nl mood/affect Head: normocephalic, atraumatic Eyes: nl conjunctiva, EOMI, nl lids, nl sclera, PERRL ENMT: nl external ears & nose, nl lips & teeth, nl nasal mucosa & septum Neck: supple, non-tender Respiratory: clear to auscultation, normal air movement Cardiovascular: regular rate and rhythm, nl pulses Gastrointestinal: soft, nl liver, spleen, non-tender Musculoskeletal: nl extremities to inspection, nl gait and stance Extremities: normal pulses Neurological: EDUCATION ADMINISTRATOR II-XII intact, nl mental status, nl speech, nl strength Skin: nl turgor; No rash or lesions Lymph: nl lymph nodes Results Results 24hrs Laboratory Tests Test 04/22/19 15:31 Bedside Glucose 111 Medications Medication Current Medications IV Flush (NS 3 ml) 3 ml PER PROTOCOL IV ; Start 04/21/19 at 16:30 Ondansetron HCl (Zofran Inj) 4 mg Q6H PRN IV NAUSEA/VOMITING Last administered on 04/23/19 11:58; Admin Dose 4 MG; Start 04/21/19 at 16:30 Acetaminophen (Tylenol Tab) 650 mg Q6H PRN PO .PAIN 1-3 OR TEMP Last administered on 04/21/19 16:26; Admin Dose 650 MG; Start 04/21/19 at 16:30 Acetaminophen/ Hydrocodone Bitart ([place] (5/325)) 1 tab Q6H PRN PO .MOD PAIN 4- 6 Last administered on 04/23/19 09:38; Admin Dose 1 TAB; Start 04/21/19 at 16:30 Morphine Sulfate (morphine) 2 mg Q4H PRN IV .SEVERE PAIN 7-10 Last administered on 04/22/19 22:42; Admin Dose 2 MG; Start 04/21/19 at 16:30 Docusate Sodium (Colace) 100 mg Q12H PRN PO .CONSTIPATION; Start 04/21/19 at 16:30 Zolpidem Tartrate (Ambien) 5 mg QHS PRN PO .INSOMNIA; Start 04/21/19 at 16:30 Albuterol/ Ipratropium (Duoneb) 3 ml Q4H RESP THERAPY PRN HHN SHORTNESS OF BREATH Last administered on 04/23/19 02:36; Admin Dose 3 ML; Start 04/23/19 at 02:30 GILBERTO SAMANO MD Apr 23, 2019 14:49
[2019-04-23] MEDS: morphine 2 MG INJ IV PRN (18:01)
[2019-04-23 19:42] VITALS: BP 111/68; PULSE 75; RESP 18
[2019-04-24 02:20] VITALS: BP 133/73; PULSE 64; RESP 18
[2019-04-24 08:04] VITALS: BP 140/81; PULSE 67; RESP 18
[2019-04-24] MEDS ORDERED: FOSFOMYCIN 3 GM PACKET PO ONE (11:30)
--- NOTE | 2019-04-24 12:21 | DS ---
Date/Time of Note Date/Time of Note DATE: 04/24/19 TIME: 12:20 Discharge Summary Admission/Discharge Info Admit Date/Time Apr 21, 2019 at 14:30 Discharge Date/Time Discharge Diagnosis Pancreatitis UTI Patient Condition: Stable Hospital Course Found to have mild pancreatitis. Symptoms resolved with fluids UTI was present and initially treated with ceftriaxone. Culture data from outside ED revealed ESBL E Coli senstiive to fosfomycin. This was given and patient was discharged to self care. Home Meds No Active Prescriptions or Reported Meds Primary Care Provider [facility] GILBERTO SAMANO MD Apr 24, 2019 12:21
== END 2019-04-24 13:15 | disposition home or self-care (01) | DRG 439 ==
LOC: 5EC 14:30
PROVIDERS: ADMIT Internal Medicine; ATTEND Internal Medicine
DX: K86.0 Alcohol-induced chronic pancreatitis (principal); F33.9 Major depressive disorder, recurrent, unspecified; N39.0 Urinary tract infection, site not specified; E44.0 Moderate protein-calorie malnutrition; Z68.1 Body mass index [BMI] 19.9 or less, adult; F10.10 Alcohol abuse, uncomplicated; F20.9 Schizophrenia, unspecified; Z91.19 Patient's noncompliance with other medical treatment and regimen; Z59.0 Homelessness; H91.90 Unspecified hearing loss, unspecified ear
CPT/HCPCS: 80048; 81001; 82962; 83036; 83690; 83735; 84100; 85025; 87081; 94640; 94664; J0696; J2060; J2270; J2405; J3411; J7030; J7042

== ENCOUNTER 2019-04-26 15:11 | Inpatient (IN) | payer OTHER ==
[~2019-04-26] VITALS: Ht 160 cm; Wt 47.5 kg
[2019-04-26] MEDS ORDERED: LORAZEPAM 2 MG INJ IV ONE (18:30)
[2019-04-26] MEDS ORDERED: ONDANSETRON 4 MG INJ IV PRN (19:00)
[2019-04-26] MEDS ORDERED: NACL 0.9% 3 ML SYG IV SCH (19:00)
[2019-04-26] MEDS ORDERED: LORAZEPAM 2 MG INJ IV PRN (19:00)
[2019-04-26] MEDS: SOD CHLORIDE 0.9% 1,000 ML IV SCH (19:28)
--- NOTE | 2019-04-26 19:37 | HP ---
Date/Time of Note Date/Time of Note DATE: 04/26/19 TIME: 19:07 Assessment/Plan VTE Prophylaxis SCD applied (from Nsg): Yes Pharmacological prophylaxis: NA/contraindicated Pharm contraindication: low risk/ambulating Assessment/Plan Assessment/Plan 48 yo alcoholic homeless woman presents with pancreatitis #Pancreatitis - Lipase moderately elevated - Patient may be developing chronic pancreatitis - She insisted on food so will feed her. - IV fluids - Pain control #Alcoholism - Ativan prn withdrawal symptoms #Tobacco use - Patient refused nicotine patch DVT: SCDs GI: None HPI/ROS Admit Date/Time Admit Date/Time Apr 26, 2019 at 17:31 Hx of Present Illness Ms. Renteria is a homeless woman with history of alcoholism and recurrent pancreatitis transferred here from [facility] for pancreatitis. She was recently hospitalized at [facility] 04/21-04/24 for "mild pancreatitis", resolved with fluids, she was discharged after she was tolerating diet. After discharge, she reports she "had a few drinks with friends" and developed stabbing epigastric pain similar to her last pancreatitis. She has no nausea, no vomiting and actually says she is very hungry. She also reports occasional episodes of bright red blood per rectum, most recently this morning. Very small volume on toilet paper when wiping. Said she had a colonoscopy recently and was told she has hemorrhoids. In the ED at [facility] she was afebrile, tachy to 105, BP 137/85, RR 20. Lipase was 339 (was 125 when she was discharged from here), trop negative, Hgb 10.0, WBC 7.3. BMP unremarkable. AST 339. ROS 12 point review of systems done, negative except per HPI. PMH/Family/Social Past Medical History Alcoholism Recurrent pancreatitis Deafness Medications Current Medications Sodium Chloride 1,000 ml @ 125 mls/hr Q8H IV ; Start 04/26/19 at 18:40 IV Flush (NS 3 ml) 3 ml PER PROTOCOL IV ; Start 04/26/19 at 19:00 Ondansetron HCl (Zofran Inj) 4 mg Q6H PRN IV NAUSEA/VOMITING; Start 04/26/19 at 19:00 Acetaminophen/ Hydrocodone Bitart ([place] (5/325)) 1 tab Q6H PRN PO .MOD PAIN 4- 6; Start 04/26/19 at 19:00 Senna (Senokot) 2 tab BID PO ; Start 04/26/19 at 21:00 Lorazepam (Ativan) 2 mg Q2H PRN IV alcohol withdrawal symptoms; Start 04/26/19 at 19:00 Coded Allergies: Iodinated Contrast- Oral and IV Dye (Verified Allergy, Severe, SOB, 02/12/19) apple (Verified Allergy, Severe, ANALPHYLAXIS, 03/30/18) aspirin (Verified Allergy, Severe, RESP DISTRESS "IT ALMOST KILLED ME", 03/30/18) haloperidol (Verified Allergy, Intermediate, 03/30/18) Past Surgical History Past Surgical Hx: no surgical history, other Family History Significant Family History: no pertinent family hx Social History Alcohol Use: heavy Smoking Status: Current every day smoker (1 ppd) Drug Use: none Exam/Review of Systems Exam Exam Gen: Thin woman sitting up in bed, slightly uncomfortable appearing Eyes: PERRL, no icterus HEENT: Moist mucous membranes, clear oropharynx Neck: No masses, supple, no lymphadenopathy Card: Regular rate and rhythm, no murmurs Pulm: Clear to auscultation bilaterally Abd: Soft, nondistended. Epigastric tenderness to deep palpation. Ext: No cyanosis/clubbing/edema Skin: warm, dry, well perfused. ADAM RHOADES MD Apr 26, 2019 19:17
[2019-04-26 19:45] VITALS: Ht 160 cm; Wt 47.5 kg
[2019-04-26 20:00] VITALS: BP 134/75; PULSE 85; RESP 20
[2019-04-26] MEDS: SENNA TAB PO SCH (20:43)
[2019-04-26] MEDS: HYDROCODONE/APAP (5/325) TAB PO PRN (20:43)
[2019-04-26] MEDS ORDERED: ALBU8.5H8 INH (21:02)
[2019-04-26] MEDS ORDERED: ALBUTEROL HFA 8 GM INHALER INH PRN (22:30)
[2019-04-27 02:00] VITALS: BP 150/72; PULSE 90; RESP 18
[2019-04-27] MEDS: SOD CHLORIDE 0.9% 1,000 ML IV SCH ×2 (03:46→10:40)
[2019-04-27] MEDS: HYDROCODONE/APAP (5/325) TAB PO PRN (05:23)
[2019-04-27] MEDS ORDERED: PANTOPRAZOLE (EC) 40 MG TAB PO SCH (06:00)
[2019-04-27 08:00] VITALS: BP 130/63; PULSE 67; RESP 18
[2019-04-27] MEDS: SENNA TAB PO SCH (09:00)
--- NOTE | 2019-04-27 15:41 | DS ---
Date/Time of Note Date/Time of Note DATE: 04/27/19 TIME: 15:40 Discharge Summary Admission/Discharge Info Admit Date/Time Apr 26, 2019 at 17:31 Discharge Date/Time Apr 27, 2019 at 12:51 Discharge Diagnosis Alcohol intoxication Patient Condition: Stable Hospital Course Patient was treated with IV fluids. CT A/P was negative for pancreatitis. She was monitored overnight and requested to be discharged the following AM Home Meds Reported Medications Albuterol Sulfate* (Proair HFA*) 8.5 Gm Hfa.aer.ad, 2 PUFF INH, #1 INHALER 04/26/[address] [facility] Pending Labs Laboratory Tests Test 04/27/19 01:30 04/27/19 05:23 Urine Test NEGATIVE (NEGATIVE) White Blood Count 4.0 10^3/ul (4.8-10.8) Red Blood Count 3.42 10^6/ul (4.20-5.40) Hemoglobin 8.5 g/dl (12.0-16.0) Hematocrit 29.4 % (37.0-47.0) Mean Corpuscular Volume 86.0 fl (82.0-101.0) Mean Corpuscular Hemoglobin 24.9 pg (29.0-33.0) Mean Corpuscular 28.9 g/dl (32.0-37.0) Hemoglobin Concent Red Cell Distribution Width 22.6 % (11.5-14.5) Platelet Count 152 10^3/UL (140-415) Mean Platelet Volume 10.6 fl (7.4-10.4) Immature Granulocytes % 0.500 % (0.001-0.429) Neutrophils % 44.6 % (39.0-77.0) Lymphocytes % 38.7 % (15.0-51.0) Monocytes % 12.0 % (0.0-11.0) Eosinophils % 2.7 % (0.0-7.0) Basophils % 1.5 % (0.0-2.0) Nucleated Red Blood Cells % 0.0 /100WBC (0.0-0.0) Immature Granulocytes # 0.020 10^3/ul (0.0-0.031) Neutrophils # 1.8 10^3/ul (1.6-7.5) Lymphocytes # 1.6 10^3/ul (0.8-2.9) Monocytes # 0.5 10^3/ul (0.3-0.9) Eosinophils # 0.1 10^3/ul (0.0-0.5) Basophils # 0.1 10^3/ul (0.0-0.1) Nucleated Red Blood Cells # 0.0 10^3/ul (0.0-0.0) Sodium Level 143 mmol/L (135-144) Potassium Level 3.8 mmol/L (3.5-5.1) Chloride Level 111 mmol/L (97-110) Carbon Dioxide Level 26 mmol/L (21-31) Anion Gap 6 (5-13) Blood Urea Nitrogen 11 mg/dl (7-20) Creatinine 0.59 mg/dl (0.44-1.00) Est Glomerular Filtrat > 60 mL/min (>60) Rate mL/min Glucose Level 92 mg/dl (70-220) Hemoglobin A1c 5.0 % (0-5.9) Calcium Level 8.4 mg/dl (8.4-10.2) Phosphorus Level 4.0 mg/dl (2.5-4.9) Magnesium Level 1.7 mg/dl (1.7-2.5) Total Bilirubin 0.3 mg/dl (0.2-1.3) Direct Bilirubin 0.00 mg/dl (0.00-0.20) Indirect Bilirubin 0.3 mg/dl (0-1.1) Aspartate Amino 56 IU/L (15-46) Transf (AST/SGOT) Alanine 42 IU/L (13-69) Aminotransferase (ALT/SGPT) Alkaline Phosphatase 61 IU/L (42-121) Total Protein 5.8 g/dl (6.1-8.1) Albumin 3.0 g/dl (3.3-4.9) Globulin 2.80 g/dl (1.3-3.2) Albumin/Globulin Ratio 1.07 Thyroid Stimulating 2.270 MIU/L (0.465-4.680) Hormone (TSH) GILBERTO SAMANO MD Apr 27, 2019 15:41
== END 2019-04-27 12:51 | disposition home or self-care (01) | DRG 897 ==
LOC: PP2 17:31
PROVIDERS: ADMIT Internal Medicine; ATTEND Internal Medicine
DX: F10.229 Alcohol dependence with intoxication, unspecified (principal); H91.90 Unspecified hearing loss, unspecified ear; F17.210 Nicotine dependence, cigarettes, uncomplicated; Z59.0 Homelessness
CPT/HCPCS: 74176; 80053; 83036; 83735; 84100; 84443; 84703; 85025; 87081; J2060; J7030

== ENCOUNTER 2019-05-07 10:54 | Inpatient (IN) | payer OTHER ==
[~2019-05-07] VITALS: Ht 165.1 cm; Wt 45.8 kg
[~2019-05-07 10:54] MED LIST changes: +ALBU8.5H8 INH; -DOCU-144 PO; -HYDR25SU23 PR; -LEVO750T25 PO; -Nicotine (14 Mg/24 Hr) TRANSDERM; -THIA100T10 PO
[2019-05-07 12:13] VITALS: BP 130/77; PULSE 80; RESP 16
[2019-05-07 12:24] VITALS: Ht 165.1 cm; Wt 45.8 kg
[2019-05-07] MEDS: morphine 2 MG INJ IV PRN ×2 (15:09→18:42)
[2019-05-07] MEDS ORDERED: SOD CHLORIDE 0.9% 1,000 ML IV SCH (15:33)
--- NOTE | 2019-05-07 15:48 | HP ---
Date/Time of Note Date/Time of Note DATE: 05/07/19 TIME: 15:41 Assessment/Plan VTE Prophylaxis SCD applied (from Nsg): Yes Pharmacological prophylaxis: heparin Lines/Catheters IV Catheter Type (from Nrsg): Saline Lock Assessment/Plan Hospital Course Assessment and plan 1. Alcohol induced pancreatitis. Continue IV fluids. Analgesics as needed. Adrian criteria roughly estimated at 1. Will trial clear liquid diet and advance as tolerated. 2. UTI. Follow-up on urine culture. Did have recent diagnosis of ESBL UTI. Will continue on Merrem for now 3. Substance abuse (alcohol). Will get social media senior associate to follow. Patient does report her last alcoholic beverage was last night. Continue banana bag 4. Homeless status. Will get social media senior associate to follow. 5. Depression. Will get psych consult 6. History of COPD. No active exacerbation noted at this time. O2 PRN. 7. History of gastritis. Continue on H2 lydia Discussed POC with Dr. Gimenez HPI/ROS Admit Date/Time Admit Date/Time May 07, 2019 at 11:51 Hx of Present Illness This is a 48-year-old female with history of alcohol dependence, recurrent pancreatitis likely secondary to alcohol abuse, COPD, anemia of chronic disease, depression, suspect schizophrenia, who was transferred to [facility] from [facility] due to insurance reasons for diagnosis of pancreatitis and UTI. According to the patient she was drinking heavily last night for a friend's birthday. She reports that she is aware she should not drink but she did anyway. This morning when she woke up she reported increased abdominal pain more on lower abdominal area. She also reported subjective fevers and dysuria. As such she went to the hospital for further evaluation. At [facility] she was found to have slight elevation in lipase at 391. Leukocyte esterase test was also positive suggestive of urinary tract infection. She did have recent diagnosis of ESBL UTI and was given Merrem at [facility]. Currently on interview he is alert and anxious. She reports that she is hungry. She still reports having some minimal lower abdominal pain. We will evaluate her for the aformentiond issues. ROS 12 point review of systems obtained entirely negative except as mentioned in history of present illness PMH/Family/Social Past Medical History Medical/surgical history 1. Alcoholism 2. Recurrent pancreatitis 3. Deafness 4. COPD 5. Depression Medications Current Medications Morphine Sulfate (morphine) 2 mg Q4H PRN IV SEVERE PAIN LEVEL 7-10 Last administered on 05/07/19at 15:09; Admin Dose 2 MG; Start 05/07/19 at 15:30 IV Flush (NS 3 ml) 3 ml PER PROTOCOL IV ; Start 05/07/19 at 16:00; Status UNV Ondansetron HCl (Zofran Inj) 4 mg Q6H PRN IV NAUSEA/VOMITING; Start 05/07/19 at 16:00; Status UNV Acetaminophen (Tylenol Tab) 650 mg Q6H PRN PO .PAIN 1-3 OR TEMP; Start 05/07/19 at 16:00; Status UNV Docusate Sodium (Colace) 100 mg Q12H PRN PO .CONSTIPATION; Start 05/07/19 at 16:00; Status UNV Magnesium Hydroxide (Milk Of Mag) 30 ml DAILY PRN PO .CONSTIPATION; Start 05/07/19 at 16:00; Status UNV Bisacodyl (Dulcolax Supp) 10 mg DAILY PRN [place] .CONSTIPATION; Start 05/07/19 at 16:00; Status UNV Famotidine (Pepcid Iv) 20 mg Q12 IV ; Start 05/07/19 at 21:00; Status UNV Heparin Sodium (Porcine) (Heparin (5000 Units/1ml)) 5,000 unit Q8 SC ; Start 05/07/19 at 22:00; Status UNV Multivitamins 10 ml/Thiamine HCl 100 mg/Folic Acid 1 mg/Sodium Chloride 1,011.2 ml @ 125 mls/ hr DAILY@09 IVPB ; Start 05/08/19 at 09:00; Status UNV Coded Allergies: Iodinated Contrast- Oral and IV Dye (Verified Allergy, Severe, SOB, 02/12/19) apple (Verified Allergy, Severe, ANALPHYLAXIS, 03/30/18) aspirin (Verified Allergy, Severe, RESP DISTRESS "IT ALMOST KILLED ME", 03/30/18) haloperidol (Verified Allergy, Intermediate, 03/30/18) Past Surgical History Past Surgical Hx: no surgical history, other Family History Significant Family History: no pertinent family hx Social History Alcohol Use: heavy Smoking Status: Current every day smoker Exam/Review of Systems Vital Signs Vitals Vital Signs Date Temp Pulse Resp B/P (MAP) Pulse Ox O2 O2 Flow FiO2 Time Delivery Rate 7/7/19 98.8 80 16 130/77 98 Room Air 12:13 (94) Exam Constitutional: alert Psych: anxiety Head: normocephalic Neck: supple, non-tender Respiratory: clear to auscultation Cardiovascular: regular rate and rhythm Gastrointestinal: soft, tender Musculoskeletal: nl extremities to inspection Neurological: 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
[2019-05-07] MEDS ORDERED: ONDANSETRON 4 MG INJ IV PRN (16:00)
[2019-05-07] MEDS ORDERED: ACETAMINOPHEN 325 MG TAB PO PRN (16:00)
[2019-05-07] MEDS ORDERED: DOCUSATE SODIUM 100 MG CAP PO PRN (16:00)
[2019-05-07] MEDS ORDERED: NACL 0.9% 3 ML SYG IV SCH (16:00)
[2019-05-07] MEDS ORDERED: MAGNESIUM HYDROXIDE 30ML CUP PO PRN (16:00)
[2019-05-07] MEDS ORDERED: BISACODYL 10 MG SUPP PR PRN (16:00)
[2019-05-07] MEDS: SOD CHLORIDE 0.9% 1,000 ML IV SCH (16:01)
[2019-05-07 20:00] VITALS: BP 135/61; PULSE 69; RESP 18
[2019-05-07] MEDS: MEROPENEM 1 GM/50ML(PMX) 50 ML IVPB SCH (21:18)
[2019-05-07] MEDS: FAMOTIDINE 20 MG INJ IV SCH (21:18)
[2019-05-07] MEDS: CHLORDIAZEPOXIDE 25 MG CAP PO SCH (21:19)
[2019-05-07] MEDS: HEPARIN 5,000 UNIT/1 ML VIAL SC SCH (21:20)
[2019-05-08] MEDS: SOD CHLORIDE 0.9% 1,000 ML IV SCH ×3 (01:56→21:27)
[2019-05-08 02:25] VITALS: BP 127/70; PULSE 79; RESP 19
[2019-05-08] MEDS: HEPARIN 5,000 UNIT/1 ML VIAL SC SCH ×3 (06:20→21:32)
[2019-05-08] MEDS: morphine 2 MG INJ IV PRN ×3 (06:20→23:34)
[2019-05-08 07:31] VITALS: BP 149/89; PULSE 68; RESP 15
[2019-05-08] MEDS: FAMOTIDINE 20 MG INJ IV SCH ×2 (09:24→21:28)
[2019-05-08] MEDS: MULTIVITAMINS 10 ML, THIAMINE 100 MG, FOLIC ACID 1 MG in SOD CHLORIDE 0.9% 1,000 ML IVPB SCH (09:24)
[2019-05-08] MEDS: MEROPENEM 1 GM/50ML(PMX) 50 ML IVPB SCH (09:24)
[2019-05-08] MEDS: CHLORDIAZEPOXIDE 25 MG CAP PO SCH ×2 (09:24→13:05)
[2019-05-08 14:40] VITALS: BP 137/86; PULSE 71; RESP 15
--- NOTE | 2019-05-08 17:57 | PN ---
Date/Time of Note Date/Time of Note DATE: 05/08/19 TIME: 17:56 Assessment/Plan VTE Prophylaxis Risk score (from Nsg)>0 risk: 2 SCD applied (from Nsg): Yes Pharmacological prophylaxis: NA/contraindicated Pharm contraindication: low risk/ambulating Lines/Catheters IV Catheter Type (from Nrsg): Peripheral IV Assessment/Plan Hospital Course SUBJECTIVE: Tolerating soft diet. OBJECTIVE: Physical Exam General: Adequately build 48 year-old female lying in bed in no apparent distress. HEENT: Normocephalic, atraumatic. Eyes: Anicteric sclerae, conjunctivae clear. ENT: Nasal septum midline, oral mucosa moist. Neck supple, no JVD noticed. Respiratory: Bilaterally diminished breath sounds. No use of accessory muscles of respiration. No adventitious breath sounds. Cardiovascular: S1, S2 heard. Regular rate and rhythm. Abdomen: Soft, nontender, and nondistended. Bowel sounds positive in all 4 quadrants. Genitourinary: Deferred. Extremities: No cyanosis, no clubbing, no edema. Peripheral pulses palpable. Neurologic: The patient is awake, alert, and oriented. Hard of hearing in both ears. Skin: Normal skin turgor. No skin rashes. Labs & Vitals per chart ASSESSMENT & PLAN 48-year-old female with comorbidities including recurrent pancreatitis, COPD, depression, alcoholism, homelessness, and bilateral hearing loss who presented to the local emergency room because of abdominal pain with elevated lipase on lab work and was transferred to [facility] for insurance reasons. 1. Alcohol induced pancreatitis. Lipase level has been normalized. The patient's diet has been upgraded to a soft diet. Continue pain control. 2. Positive urinalysis. Urine cultures negative. DC meropenem. 3. COPD. No evidence of any exacerbation. 4. Alcoholism. Continue tapering dose of Librium. Continue multivitamins. 5. Nicotine use. Cessation advised. 6. Homeless. 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 7. Fluids, electrolytes, and nutrition. Soft diet. 8. DVT prophylaxis. Bilateral SCDs. Ambulation. 9. Plan. Advance diet as tolerated. DC planning once clinically stable. The patient was seen in collaboration with Dr. Interiano. Result Diagram: 05/08/19 0526 05/08/19 0526 Results 24hrs Laboratory Tests Test 05/08/19 05:26 White Blood Count 5.1 # Red Blood Count 3.49 L Hemoglobin 8.8 L Hematocrit 28.5 L Mean Corpuscular Volume 81.7 L Mean Corpuscular Hemoglobin 25.2 L Mean Corpuscular Hemoglobin Concent 30.9 L Red Cell Distribution Width 22.8 H Platelet Count 183 # Mean Platelet Volume 10.3 Immature Granulocytes % 0.400 Neutrophils % 59.1 Lymphocytes % 31.3 Monocytes % 4.5 Eosinophils % 3.5 Basophils % 1.2 Nucleated Red Blood Cells % 0.0 Immature Granulocytes # 0.020 Neutrophils # 3.0 Lymphocytes # 1.6 Monocytes # 0.2 L Eosinophils # 0.2 Basophils # 0.1 Nucleated Red Blood Cells # 0.0 Sodium Level 139 Potassium Level 3.6 Chloride Level 110 Carbon Dioxide Level 25 Anion Gap 4 L Blood Urea Nitrogen 3 L Creatinine 0.50 Est Glomerular Filtrat Rate mL/min > 60 Glucose Level 85 Hemoglobin A1c 5.0 Calcium Level 7.8 L Phosphorus Level 3.1 Magnesium Level 1.5 L Total Bilirubin 0.7 Direct Bilirubin 0.00 Indirect Bilirubin 0.7 Aspartate Amino Transf (AST/SGOT) 55 H Alanine Aminotransferase (ALT/SGPT) 37 Alkaline Phosphatase 69 Total Protein 5.8 L Albumin 2.9 L Globulin 2.90 Albumin/Globulin Ratio 1.00 Triglycerides Level 54 Cholesterol Level 138 LDL Cholesterol, Calculated 33 HDL Cholesterol 94 H Cholesterol/HDL Ratio 1.4 Amylase Level 38 Lipase 136 Thyroid Stimulating Hormone (TSH) 2.370 Free Thyroxine Index 2.53 Thyroxine (T4) 5.6 Triiodothyronine (T3) Uptake 45.1 H Exam/Review of Systems Exam Vitals Vital Signs Date Temp Pulse Resp B/P (MAP) Pulse Ox O2 O2 Flow FiO2 Time Delivery Rate 05/08/19 98.5 71 15 137/86 96 Room Air 14:40 (103) Intake and Output 05/07/19 05/07/19 05/08/19 1515:00 23:00 07:00 IntakeIntake Total 750 ml 1000 ml OutputOutput Total 150 ml 200 ml BalanceBalance 600 ml 800 ml Results Results 24hrs Laboratory Tests Test 05/08/19 05:26 White Blood Count 5.1 # Red Blood Count 3.49 L Hemoglobin 8.8 L Hematocrit 28.5 L Mean Corpuscular Volume 81.7 L Mean Corpuscular Hemoglobin 25.2 L Mean Corpuscular Hemoglobin Concent 30.9 L Red Cell Distribution Width 22.8 H Platelet Count 183 # Mean Platelet Volume 10.3 Immature Granulocytes % 0.400 Neutrophils % 59.1 Lymphocytes % 31.3 Monocytes % 4.5 Eosinophils % 3.5 Basophils % 1.2 Nucleated Red Blood Cells % 0.0 Immature Granulocytes # 0.020 Neutrophils # 3.0 Lymphocytes # 1.6 Monocytes # 0.2 L Eosinophils # 0.2 Basophils # 0.1 Nucleated Red Blood Cells # 0.0 Sodium Level 139 Potassium Level 3.6 Chloride Level 110 Carbon Dioxide Level 25 Anion Gap 4 L Blood Urea Nitrogen 3 L Creatinine 0.50 Est Glomerular Filtrat Rate mL/min > 60 Glucose Level 85 Hemoglobin A1c 5.0 Calcium Level 7.8 L Phosphorus Level 3.1 Magnesium Level 1.5 L Total Bilirubin 0.7 Direct Bilirubin 0.00 Indirect Bilirubin 0.7 Aspartate Amino Transf (AST/SGOT) 55 H Alanine Aminotransferase (ALT/SGPT) 37 Alkaline Phosphatase 69 Total Protein 5.8 L Albumin 2.9 L Globulin 2.90 Albumin/Globulin Ratio 1.00 Triglycerides Level 54 Cholesterol Level 138 LDL Cholesterol, Calculated 33 HDL Cholesterol 94 H Cholesterol/HDL Ratio 1.4 Amylase Level 38 Lipase 136 Thyroid Stimulating Hormone (TSH) 2.370 Free Thyroxine Index 2.53 Thyroxine (T4) 5.6 Triiodothyronine (T3) Uptake 45.1 H Medications Medication Current Medications Morphine Sulfate (morphine) 2 mg Q4H PRN IV SEVERE PAIN LEVEL 7-10 Last administered on 05/08/19at 06:20; Admin Dose 2 MG; Start 05/07/19 at 15:30 IV Flush (NS 3 ml) 3 ml PER PROTOCOL IV ; Start 05/07/19 at 16:00 Ondansetron HCl (Zofran Inj) 4 mg Q6H PRN IV NAUSEA/VOMITING; Start 05/07/19 at 16:00 Acetaminophen (Tylenol Tab) 650 mg Q6H PRN PO .PAIN 1-3 OR TEMP; Start 05/07/19 at 16:00 Docusate Sodium (Colace) 100 mg Q12H PRN PO .CONSTIPATION; Start 05/07/19 at 16:00 Magnesium Hydroxide (Milk Of Mag) 30 ml DAILY PRN PO .CONSTIPATION; Start 05/07/19 at 16:00 Bisacodyl (Dulcolax Supp) 10 mg DAILY PRN MD .CONSTIPATION; Start 05/07/19 at 16:00 Famotidine (Pepcid Iv) 20 mg Q12 IV Last administered on 05/08/19 09:24; Admin Dose 20 MG; Start 05/07/19 at 21:00 Heparin Sodium (Porcine) (Heparin (5000 Units/1ml)) 5,000 unit Q8 SC Last administered on 05/08/19 13:05; Admin Dose 5,000 UNIT; Start 05/07/19 at 22:00 Multivitamins 10 ml/Thiamine HCl 100 mg/Folic Acid 1 mg/Sodium Chloride 1,011.2 ml @ 125 mls/ hr DAILY@09 IVPB Last administered on 05/08/19 09:24; Admin Dose 125 MLS/HR; Start 05/08/19 at 09:00 Meropenem/Sodium Chloride 50 ml @ 100 mls/hr Q12 IVPB Last administered on 05/08/19 09:24; Admin Dose 100 MLS/HR; Start 05/07/19 at 21:00 Sodium Chloride 1,000 ml @ 100 mls/hr Q10H IV Last administered on 05/08/19 01:56; Admin Dose 100 MLS/HR; Start 05/07/19 at 16:00 Chlordiazepoxide (Librium) 25 mg TID PO Last administered on 05/08/19 13:05; Ad min Dose 25 MG; Start 05/07/19 at 21:00 AKIL ALDRICH NP May 08, 2019 17:57
[2019-05-08 19:52] VITALS: BP 132/76; PULSE 75; RESP 18
[2019-05-08] MEDS: CHLORDIAZEPOXIDE 5 MG CAP PO SCH (21:27)
[2019-05-08] MEDS ORDERED: MAGNESIUM SULFATE 3 GM in DEXTROSE 5% 100 ML IVPB ONE (22:30)
[2019-05-09 01:43] VITALS: BP 124/70; PULSE 78; RESP 18
[2019-05-09] MEDS: HEPARIN 5,000 UNIT/1 ML VIAL SC SCH (05:33)
[2019-05-09] MEDS: SOD CHLORIDE 0.9% 1,000 ML IV SCH (08:00)
[2019-05-09 08:06] VITALS: BP 155/85; PULSE 70; RESP 18
[2019-05-09] MEDS ORDERED: MUPIROCIN 2% 22 GM OINT TOP SCH (09:00)
[2019-05-09] MEDS: morphine 2 MG INJ IV PRN (09:26)
[2019-05-09] MEDS: MULTIVITAMINS 10 ML, THIAMINE 100 MG, FOLIC ACID 1 MG in SOD CHLORIDE 0.9% 1,000 ML IVPB SCH (09:26)
[2019-05-09] MEDS: CHLORDIAZEPOXIDE 5 MG CAP PO SCH (09:26)
[2019-05-09] MEDS: FAMOTIDINE 20 MG INJ IV SCH (09:26)
--- NOTE | 2019-05-09 09:59 | PDOCDIS ---
Discharge Instructions CONDITION [id number] Patient Condition: [id number] Stable HOME CARE INSTRUCTIONS: [id number] Diet Instructions: [id number] Regular FOLLOW UP/APPOINTMENTS Follow-up Plan Follow-up with your primary care physician in 1-2 weeks. OTHER ORDERS: Other Orders: 1. Take a regular diet as tolerated. 2. Resume activities as tolerated. 3. Follow-up with your primary care physician 1 to 2 weeks. 4. Abstain from using alcohol. AKIL ALDRICH NP May 09, 2019 09:59
--- NOTE | 2019-05-09 10:18 | DS ---
Date/Time of Note Date/Time of Note DATE: 05/09/19 TIME: 10:15 Discharge Summary Admission/Discharge Info Admit Date/Time May 07, 2019 at 11:51 Discharge Date/Time Discharge Diagnosis 1. Alcohol induced pancreatitis. 2. MRSA colonization of the nares. 3. COPD. 4. Alcoholism. 5. Nicotine use. 6. Homelessness. 7. Chronic B/L hearing loss. Patient Condition: Stable Hx of Present Illness This is a 48-year-old female with comorbidities including recurrent pancreat itis, COPD, depression, alcoholism, homelessness, and bilateral hearing loss who presented to the local emergency room because of abdominal pain with elevated lipase on lab work and was transferred to [facility] for insurance reasons. Hospital Course The patient was admitted to inpatient setting. The patient was kept n.p.o. She was provided with adequate pain control. She was provided with IV hydration. The patient responded well to bowel rest. The patient was started on a clear liquid diet and the patient's diet was advanced as tolerated to a regular consistency diet without any significant gastrointestinal symptoms. The etiology of the patient's underlying pancreatitis could be most probably alcohol induced. The patient was advised on cutting down the use of alcohol and the importance of remaining sober. She was maintained on tapering dose of Librium and multivitamins because of her underlying alcoholism. The patient was closely monitored for any DTs. She has underlying history of COPD. She did not have any evidence of any exacerbation. She is also a current nicotine user. She was advised on cessation. The patient had positive urinalysis from the transferring facility. The patient's urine culture at [facility] was negative. Therefore, the patient's antibiotics were discontinued. The patient is homeless. The patient was evaluated by nursing home social worker and was given resources. The patient was also noticed to have MRSA colonization of the nares. She was provided with Bactroban to the bilateral nares during her hospitalization. The patient had a stable hospital course. The patient is stable to be discharged. Discharge Instructions 1. Take a regular diet as tolerated. 2. Resume activities as tolerated. 3. Follow-up with your primary care physician in 1 to 2 weeks. 4. Abstain from using alcohol. The patient verbalized understanding of the discharge instructions. The patient was seen in collaboration with Dr. Interiano. Home Meds Reported Medications Albuterol Sulfate* (Proair HFA*) 8.5 Gm Hfa.aer.ad, 2 PUFF INH, #1 INHALER 04/26/19 Follow-up Plan Follow-up with your primary care physician in 1-2 weeks. Primary Care Provider [facility] Time spent on discharge: > 30 minutes Pending Labs Laboratory Tests Test 05/09/19 04:54 White Blood Count 4.9 10^3/ul (4.8-10.8) Red Blood Count 3.54 10^6/ul (4.20-5.40) Hemoglobin 9.0 g/dl (12.0-16.0) Hematocrit 29.2 % (37.0-47.0) Mean Corpuscular Volume 82.5 fl (82.0-101.0) Mean Corpuscular Hemoglobin 25.4 pg (29.0-33.0) Mean Corpuscular Hemoglobin Concent 30.8 g/dl (32.0-37.0) Red Cell Distribution Width 23.3 % (11.5-14.5) Platelet Count 184 10^3/UL (140-415) Mean Platelet Volume 10.5 fl (7.4-10.4) Immature Granulocytes % 0.800 % (0.001-0.429) Neutrophils % 49.6 % (39.0-77.0) Lymphocytes % 38.4 % (15.0-51.0) Monocytes % 5.5 % (0.0-11.0) Eosinophils % 4.3 % (0.0-7.0) Basophils % 1.4 % (0.0-2.0) Nucleated Red Blood Cells % 0.4 /100WBC (0.0-0.0) Immature Granulocytes # 0.040 10^3/ul (0.0-0.031) Neutrophils # 2.4 10^3/ul (1.6-7.5) Lymphocytes # 1.9 10^3/ul (0.8-2.9) Monocytes # 0.3 10^3/ul (0.3-0.9) Eosinophils # 0.2 10^3/ul (0.0-0.5) Basophils # 0.1 10^3/ul (0.0-0.1) Nucleated Red Blood Cells # 0.0 10^3/ul (0.0-0.0) Sodium Level 139 mmol/L (135-144) Potassium Level 3.7 mmol/L (3.5-5.1) Chloride Level 109 mmol/L (97-110) Carbon Dioxide Level 28 mmol/L (21-31) Anion Gap 2 (5-13) Blood Urea Nitrogen 5 mg/dl (7-20) Creatinine 0.54 mg/dl (0.44-1.00) Est Glomerular Filtrat Rate mL/min > 60 mL/min (>60) Glucose Level 89 mg/dl (70-220) Calcium Level 8.3 mg/dl (8.4-10.2) Phosphorus Level 3.8 mg/dl (2.5-4.9) Magnesium Level 2.3 mg/dl (1.7-2.5) Total Bilirubin 0.3 mg/dl (0.2-1.3) Direct Bilirubin 0.00 mg/dl (0.00-0.20) Indirect Bilirubin 0.3 mg/dl (0-1.1) Aspartate Amino Transf (AST/SGOT) 61 IU/L (15-46) Alanine Aminotransferase (ALT/SGPT) 38 IU/L (13-69) Alkaline Phosphatase 69 IU/L (42-121) Total Protein 5.8 g/dl (6.1-8.1) Albumin 2.9 g/dl (3.3-4.9) Globulin 2.90 g/dl (1.3-3.2) Albumin/Globulin Ratio 1.00 Amylase Level 60 U/L (11-123) Lipase 164 U/L (23-300) AKIL ALDRICH NP May 09, 2019 10:18
== END 2019-05-09 12:00 | disposition home or self-care (01) | DRG 439 ==
LOC: 5EC 11:51
PROVIDERS: ADMIT Family Medicine; ATTEND Family Medicine
DX: K85.20 Alcohol induced acute pancreatitis without necrosis or infection (principal); N39.0 Urinary tract infection, site not specified; Z59.0 Homelessness; F32.9 Major depressive disorder, single episode, unspecified; J44.9 Chronic obstructive pulmonary disease, unspecified; Z72.0 Tobacco use; Z22.322 Carrier or suspected carrier of Methicillin resistant Staphylococcus aureus
CPT/HCPCS: 80053; 80061; 82150; 83036; 83690; 83735; 84100; 84436; 84443; 84479; 85025; 87081; 87086; J1644; J2185; J2270; J3411; J3475; J7030

== ENCOUNTER 2019-05-09 13:02 | Emergency (ER) | payer OTHER ==
[~2019-05-09] VITALS: Ht 152.4 cm; Wt 52.0 kg
[2019-05-09 13:07] VITALS: BP 162/67; PULSE 80; RESP 18; Ht 152.4 cm; Wt 52.0 kg
--- NOTE | 2019-05-09 14:12 | EN ---
Date/Time of Note Date/Time of Note DATE: 05/09/19 TIME: 14:10 ER Progress Note 48-year-old female history of alcoholism, homelessness presents for dizziness. She was just discharged this morning from the hospital for treatment of acute pancreatitis. She had blood work done this morning. Medical screening exam initiated and labs/imaging tests ordered. Patient will be seen by another provider. EKG ordered and would benefit from trial of meclizine. VIRGILIO BAZZI DO May 09, 2019 14:12
[2019-05-09] MEDS ORDERED: MECLIZINE 12.5 MG TAB PO ONE (14:30)
--- NOTE | 2019-05-09 15:07 | ERD ---
ER Documentation Chief Complaint Chief Complaint JUST DC FROM 5TH FLOOR, COUL NOT MAKE TO BUS STOP, STILL DIZZY HPI 48-year-old female history of alcoholism, homelessness presents for dizziness. She was just discharged this morning from the hospital for treatment of acute pancreatitis. States that she walked out to the past and felt dizzy and came back to the ER. Describes dizziness as a room spinning sensation. Denies chest pain or shortness of breath. Denies abdominal pain, nausea, vomiting. She had blood work done this morning. No other modifying factors noted, treatments tried at home. ROS All systems reviewed and are negative except as per history of present illness. Medications Home Meds Reported Medications Albuterol Sulfate* (Proair HFA*) 8.5 Gm Hfa.aer.ad, 2 PUFF INH, #1 INHALER 04/26/19 Allergies Allergies: Coded Allergies: Iodinated Contrast- Oral and IV Dye (Verified Allergy, Severe, SOB, 02/12/19) apple (Verified Allergy, Severe, ANALPHYLAXIS, 03/30/18) aspirin (Verified Allergy, Severe, RESP DISTRESS "IT ALMOST KILLED ME", 03/30/18) haloperidol (Verified Allergy, Intermediate, 03/30/18) PMhx/Soc history of alcoholism, homelessness, recurrent pancreatitis History of Surgery: No Anesthesia Reaction: No Hx Neurological Disorder: No Hx Respiratory Disorders: Yes (smoker, COPD, hx bronchitis, asthma) Hx Cardiac Disorders: No Hx Psychiatric Problems: Yes (depression) Hx Miscellaneous Medical Probl: No Hx Alcohol Use: Yes Hx Substance Use: No Hx Tobacco Use: Yes Smoking Status: Current every day smoker Physical Exam Vitals Vital Signs Date Temp Pulse Resp B/P (MAP) Pulse Ox O2 O2 Flow FiO2 Time Delivery Rate 05/09/19 98.1 80 18 162/67 99 13:07 (98) Physical Exam Const: No acute distress Head: Atraumatic, no temporal area tenderness to palpation Eyes: Normal Conjunctiva, pupils equal, round, reactive to light bilaterally, no nystagmus noted ENT: Normal External Ears, bilateral tympanic membrane intact without erythema or bulging noted, Nose and Mouth examination normal. No tonsillar swelling or exudate noted Neck: Full range of motion. No meningismus, no bruits noted Resp: Clear to auscultation bilaterally Cardio: Regular rate and rhythm, no murmurs, bilateral radial and dorsalis pedis pulses intact Skin: No petechiae or rashes Ext: No cyanosis, or edema, 5 out of 5 muscular bilateral upper and lower extremities Neur: Awake and alert, bilateral upper and lower extremity sensation intact Psych: Normal Mood and Affect Results 24 hrs Current Medications Medications Dose Sig/Caleb Start Time Status Last (Trade) Ordered Route PRN Stop Time Admin Dose Reason Admin Meclizine 25 mg ONCE ONCE 05/09/19 DC HCl PO 14:30 05/09/19 (Antivert) 14:31 Procedures/MDM Medical Decision Making: Differential diagnosis includes but not limited to benign vertigo, CVA, TIA, labyrinthitis, meniere's disease, brain tumor, seizure. ED course: Patient appeared well on physical exam. Patient neurovascularly intact. No facial droop, muscle weakness, sensation deficit or slurred speech to suggest CVA No focal neuro deficits to suggest brain tumor. EKG: Rate/Rhythm: Normal Sinus Rhythm QRS, ST, T-waves: No changes consistent w/ acute ischemia Impression: No evidence of ischemia or arrhythmia Patient was seen by psychosocial rehabilitation counselor in the ER , patient has information on where she can go. Meclizine was ordered. However patient eloped from the ER prior to medication being given to her. No blood work was ordered given the patient was just discharged from the hospital and had basic blood work done which was noted to be normal. Patient eloped prior to medication given in the ER or prescriptions given, or discharge instructions given. Disclaimer: Inadvertent spelling and grammatical errors are likely due to EHR/dictation software use and do not reflect on the overall quality of patient care. Also, please note that the electronic time recorded on this note does not necessarily reflect the actual time of the patient encounter. Departure Diagnosis: Primary Impression: Dizziness Additional Impression: Eloped from emergency department Condition: VIRGILIO Armstrong May 09, 2019 15:07
== END 2019-05-09 14:20 | disposition left against medical advice (07) ==
LOC: FTE 13:02
DX: R42 Dizziness and giddiness (principal); J44.9 Chronic obstructive pulmonary disease, unspecified; F17.200 Nicotine dependence, unspecified, uncomplicated
CPT/HCPCS: 93005; Z7502

== ENCOUNTER 2019-05-16 01:15 | Inpatient (IN) | payer OTHER ==
[~2019-05-16] VITALS: Ht 165.1 cm; Wt 46.7 kg
[2019-05-16 02:03] VITALS: Ht 165.1 cm; Wt 46.7 kg
[2019-05-16 02:11] VITALS: BP 124/73; PULSE 100; RESP 19
[2019-05-16] MEDS ORDERED: ACETAMINOPHEN 325 MG TAB PO PRN (04:00)
[2019-05-16] MEDS ORDERED: ONDANSETRON 4 MG INJ IV PRN (04:00)
[2019-05-16] MEDS ORDERED: NACL 0.9% 3 ML SYG IV SCH (04:00)
[2019-05-16] MEDS: DEXTROSE 5%-0.45% NACL 1,000 ML IV SCH ×2 (04:12→13:57)
[2019-05-16] MEDS: ALBUTEROL/IPRATROPIUM (NEB) 3 ML AMP HHN PRN (04:34)
[2019-05-16 07:29] VITALS: BP 117/69; PULSE 87; RESP 17
[2019-05-16] MEDS: HEPARIN 5,000 UNIT/1 ML VIAL SC SCH ×2 (08:29→21:05)
[2019-05-16] MEDS ORDERED: FAMOTIDINE 20 MG INJ IV SCH (09:00)
[2019-05-16] MEDS ORDERED: LORAZEPAM 0.5 MG TAB PO PRN (12:00)
--- NOTE | 2019-05-16 12:03 | PN ---
Date/Time of Note Date/Time of Note DATE: 05/16/19 TIME: 11:53 Assessment/Plan VTE Prophylaxis Risk score (from Ns)>0 risk: 1 SCD applied (from Ns): Yes Pharmacological prophylaxis: heparin Lines/Catheters IV Catheter Type (from Nrsg): Peripheral IV Assessment/Plan Assessment/Plan 1. Abdominal pain, possible acute on chronic alcohol-induced pancreatitis versus gastritis related, IVF, pain control, PPI 2. COPD, exacerbation, neb prn, levaquin 3. History of moderate gastritis and esophagitis, PPIU and carafate 4. Alcoholism, thiamine/folic acid, ativan prn 5. Tobacco dependence, declines patch 6. Deafness: Supportive care 7. Normocytic anemia, chronic, follow up with H/H 8. DVT prophylaxis: heparin Result Diagram: 05/16/19 0609 05/16/19 0609 Results 24hrs Laboratory Tests Test 05/16/19 06:09 White Blood Count 10.2 # Red Blood Count 3.50 L Hemoglobin 8.9 L Hematocrit 29.5 L Mean Corpuscular Volume 84.3 Mean Corpuscular Hemoglobin 25.4 L Mean Corpuscular Hemoglobin Concent 30.2 L Red Cell Distribution Width 23.9 H Platelet Count 278 # Mean Platelet Volume 10.2 Immature Granulocytes % 0.400 Neutrophils % 80.7 H Lymphocytes % 8.8 L Monocytes % 8.9 Eosinophils % 0.4 Basophils % 0.8 Nucleated Red Blood Cells % 0.2 H Immature Granulocytes # 0.040 H Neutrophils # 8.2 H Lymphocytes # 0.9 Monocytes # 0.9 Eosinophils # 0.0 Basophils # 0.1 Nucleated Red Blood Cells # 0.0 Sodium Level 139 Potassium Level 3.7 Chloride Level 105 Carbon Dioxide Level 25 Anion Gap 9 Blood Urea Nitrogen 6 L Creatinine 0.47 Est Glomerular Filtrat Rate mL/min > 60 Glucose Level 120 Calcium Level 8.0 L Phosphorus Level 3.0 Magnesium Level 1.2 L Total Bilirubin 0.7 Direct Bilirubin 0.00 Indirect Bilirubin 0.7 Aspartate Amino Transf (AST/SGOT) 30 Alanine Aminotransferase (ALT/SGPT) 22 Alkaline Phosphatase 126 H Total Protein 6.5 Albumin 3.3 Globulin 3.20 Albumin/Globulin Ratio 1.03 Lipase 76 Subjective 24 Hr Interval Summary Free Text/Dictation abdominal pain, no vomiting today cough with greenish sputum, shortness of breath Exam/Review of Systems Exam Vitals Vital Signs Date Temp Pulse Resp B/P (MAP) Pulse Ox O2 O2 Flow FiO2 Time Delivery Rate 05/16/19 98.1 87 17 117/69 98 07:29 (85) 05/16/19 21 04:37 Intake and Output 05/15/19 05/15/19 05/16/19 1515:00 23:00 07:00 IntakeIntake Total 200 ml BalanceBalance 200 ml Constitutional: alert, oriented, well developed Head: normocephalic, atraumatic Eyes: nl conjunctiva, EOMI, nl lids, PERRL ENMT: nl external ears & nose, nl lips & teeth, nl nasal mucosa & septum Neck: supple, non-tender Respiratory: crackles/rales Cardiovascular: regular rate and rhythm, nl pulses; No bruits, No diastolic murmur, No edema, No gallop, No irregular rhythm, No jugular venous distention (JVD), No murmurs/extra sounds, No rub, No systolic murmur, No S3, No S4, No other Gastrointestinal: soft, nl liver, spleen, other (diffuse tenderness) Musculoskeletal: nl extremities to inspection Extremities: normal pulses; No calf tenderness, No cyanosis, No clubbing, No edema, No pitting pedal edema, No palpable cord, No tenderness, No other Neurological: PHOTOGRAPHIC SUPERVISOR II-XII intact, nl mental status, nl speech, nl strength Skin: nl turgor Results Results 24hrs Laboratory Tests Test 05/16/19 06:09 White Blood Count 10.2 # Red Blood Count 3.50 L Hemoglobin 8.9 L Hematocrit 29.5 L Mean Corpuscular Volume 84.3 Mean Corpuscular Hemoglobin 25.4 L Mean Corpuscular Hemoglobin Concent 30.2 L Red Cell Distribution Width 23.9 H Platelet Count 278 # Mean Platelet Volume 10.2 Immature Granulocytes % 0.400 Neutrophils % 80.7 H Lymphocytes % 8.8 L Monocytes % 8.9 Eosinophils % 0.4 Basophils % 0.8 Nucleated Red Blood Cells % 0.2 H Immature Granulocytes # 0.040 H Neutrophils # 8.2 H Lymphocytes # 0.9 Monocytes # 0.9 Eosinophils # 0.0 Basophils # 0.1 Nucleated Red Blood Cells # 0.0 Sodium Level 139 Potassium Level 3.7 Chloride Level 105 Carbon Dioxide Level 25 Anion Gap 9 Blood Urea Nitrogen 6 L Creatinine 0.47 Est Glomerular Filtrat Rate mL/min > 60 Glucose Level 120 Calcium Level 8.0 L Phosphorus Level 3.0 Magnesium Level 1.2 L Total Bilirubin 0.7 Direct Bilirubin 0.00 Indirect Bilirubin 0.7 Aspartate Amino Transf (AST/SGOT) 30 Alanine Aminotransferase (ALT/SGPT) 22 Alkaline Phosphatase 126 H Total Protein 6.5 Albumin 3.3 Globulin 3.20 Albumin/Globulin Ratio 1.03 Lipase 76 Medications Medication Current Medications Dextrose/Sodium Chloride 1,000 ml @ 100 mls/hr Q10H IV Last administered on 05/16/19 04:12; Admin Dose 100 MLS/HR; Start 05/16/19 at 03:57 IV Flush (NS 3 ml) 3 ml PER PROTOCOL IV ; Start 05/16/19 at 04:00 Ondansetron HCl (Zofran Inj) 4 mg Q6H PRN IV NAUSEA/VOMITING; Start 05/16/19 at 04:00 Acetaminophen (Tylenol Tab) 650 mg Q6H PRN PO .PAIN 1-3 OR TEMP Last administered on 05/16/19 04:19; Admin Dose 650 MG; Start 05/16/19 at 04:00 Famotidine (Pepcid Iv) 20 mg Q12 IV Last administered on 05/16/19 08:29; Admin Dose 20 MG; Start 05/16/19 at 09:00 Heparin Sodium (Porcine) (Heparin (5000 Units/1ml)) 5,000 unit Q12 SC Last administered on 05/16/19 08:29; Admin Dose 5,000 UNIT; Start 05/16/19 at 09:00 Albuterol/ Ipratropium (Duoneb) 3 ml Q2H RESP THERAPY PRN HHN SHORTNESS OF BREATH Last administered on 05/16/19 04:34; Admin Dose 3 ML; Start 05/16/19 at 04:00 LINH GOLDMAN MD May 16, 2019 12:03
[2019-05-16 12:30] VITALS: BP 123/79; PULSE 93; RESP 18
[2019-05-16] MEDS: LEVOFLOXACIN 500 MG TAB PO SCH (13:04)
[2019-05-16] MEDS: HYDROCODONE/APAP (5/325) TAB PO PRN (13:06)
[2019-05-16 20:13] VITALS: BP 127/58; PULSE 79; RESP 17
[2019-05-16] MEDS: GUAIFENESIN/CODEINE 5ML CUP PO PRN (21:06)
[2019-05-16] MEDS: FAMOTIDINE 20 MG TAB PO SCH (22:03)
[2019-05-17] MEDS: ALBUTEROL/IPRATROPIUM (NEB) 3 ML AMP HHN PRN ×2 (02:25→21:46)
[2019-05-17 02:33] VITALS: BP 138/93; PULSE 83; RESP 19
[2019-05-17] MEDS: HYDROCODONE/APAP (5/325) TAB PO PRN ×4 (02:53→22:50)
--- NOTE | 2019-05-17 04:41 | HP ---
Date/Time of Note Date/Time of Note DATE: 05/16/19 TIME: 07:51 Assessment/Plan VTE Prophylaxis Pharmacological prophylaxis: heparin Lines/Catheters IV Catheter Type (from Nrs): Saline Lock Assessment/Plan Assessment/Plan 1. Abdominal pain, likely secondary to chronic alcohol induced pancreatitis -Patient is currently asking for food and as such we will resume diet -Lipase was WNL at the outside facility, less than 200 2. Cough, productive of green sputum -Per patient, she was just diagnosed with pneumonia -Obtain chest x-ray -Respiratory culture -If patient continues to have cough and if chest x-ray is positive, will start antibiotic 4. History of COPD -Supplemental oxygen, bronchodilators, steroid as needed 5. History of moderate gastritis and esophagitis -PPI 6. Deafness: Supportive care -Patient able to talk Result Diagram: 05/16/19 0609 05/16/19 0609 Results 24hrs Laboratory Tests Test 05/16/19 06:09 White Blood Count 10.2 # Red Blood Count 3.50 L Hemoglobin 8.9 L Hematocrit 29.5 L Mean Corpuscular Volume 84.3 Mean Corpuscular Hemoglobin 25.4 L Mean Corpuscular Hemoglobin Concent 30.2 L Red Cell Distribution Width 23.9 H Platelet Count 278 # Mean Platelet Volume 10.2 Immature Granulocytes % 0.400 Neutrophils % 80.7 H Lymphocytes % 8.8 L Monocytes % 8.9 Eosinophils % 0.4 Basophils % 0.8 Nucleated Red Blood Cells % 0.2 H Immature Granulocytes # 0.040 H Neutrophils # 8.2 H Lymphocytes # 0.9 Monocytes # 0.9 Eosinophils # 0.0 Basophils # 0.1 Nucleated Red Blood Cells # 0.0 Sodium Level 139 Potassium Level 3.7 Chloride Level 105 Carbon Dioxide Level 25 Anion Gap 9 Blood Urea Nitrogen 6 L Creatinine 0.47 Est Glomerular Filtrat Rate mL/min > 60 Glucose Level 120 Calcium Level 8.0 L Phosphorus Level 3.0 Magnesium Level 1.2 L Total Bilirubin 0.7 Direct Bilirubin 0.00 Indirect Bilirubin 0.7 Aspartate Amino Transf (AST/SGOT) 30 Alanine Aminotransferase (ALT/SGPT) 22 Alkaline Phosphatase 126 H Total Protein 6.5 Albumin 3.3 Globulin 3.20 Albumin/Globulin Ratio 1.03 Lipase 76 HPI/ROS Admit Date/Time Admit Date/Time May 16, 2019 at 01:15 Hx of Present Illness Patient is a 48-year-old deaf woman with a history of COPD, alcohol abuse, alcoholic pancreatitis, homelessness, medication noncompliance, COPD, GI bleed. Patient initially presented on outside hospital complaining of abdominal pain. She was transferred to [facility] for insurance reason. Her lipase was within normal limits in the 200s. Her last drink was yesterday (3 beers). She said a few days ago she was told that she had pneumonia. Reported cough productive of greenish sputum. PMH/Family/Social Past Medical History Past Surgical Hx: other (see HPI) Family History Significant Family History: no pertinent family hx Social History Alcohol Use: none Smoking Status: Never smoker Drug Use: none Exam Constitutional: No acute distress Head: normocephalic, atraumatic Eyes: EOMI, PERRL Respiratory: no distress Cardiovascular: regular rate and rhythm Gastrointestinal: soft Extremities: normal pulses Medications Current Medications Dextrose/Sodium Chloride 1,000 ml @ 100 mls/hr Q10H IV Last administered on 05/16/19at 04:12; Admin Dose 100 MLS/HR; Start 05/16/19 at 03:57 IV Flush (NS 3 ml) 3 ml PER PROTOCOL IV ; Start 05/16/19 at 04:00 Ondansetron HCl (Zofran Inj) 4 mg Q6H PRN IV NAUSEA/VOMITING; Start 05/16/19 at 04:00 Acetaminophen (Tylenol Tab) 650 mg Q6H PRN PO .PAIN 1-3 OR TEMP Last administered on 05/16/19at 04:19; Admin Dose 650 MG; Start 05/16/19 at 04:00 Famotidine (Pepcid Iv) 20 mg Q12 IV ; Start 05/16/19 at 09:00 Heparin Sodium (Porcine) (Heparin (5000 Units/1ml)) 5,000 unit Q12 SC ; Start 05/16/19 at 09:00 Albuterol/ Ipratropium (Duoneb) 3 ml Q2H RESP THERAPY PRN HHN SHORTNESS OF BREATH Last administered on 05/16/19at 04:34; Admin Dose 3 ML; Start 05/16/19 at 04:00 Coded Allergies: Iodinated Contrast- Oral and IV Dye (Verified Allergy, Severe, SOB, 02/12/19) apple (Verified Allergy, Severe, ANALPHYLAXIS, 03/30/18) aspirin (Verified Allergy, Severe, RESP DISTRESS "IT ALMOST KILLED ME", 03/30/18) haloperidol (Verified Allergy, Intermediate, 03/30/18) Past Surgical History Past Surgical Hx: no surgical history, other Family History Significant Family History: no pertinent family hx Social History Smoking Status: Current every day smoker Exam/Review of Systems Vital Signs Vitals Vital Signs Date Temp Pulse Resp B/P (MAP) Pulse Ox O2 O2 Flow FiO2 Time Delivery Rate 05/16/19 98.1 87 17 117/69 98 07:29 (85) 05/16/19 21 04:37 Intake and Output 05/15/19 05/15/19 05/16/19 1515:00 23:00 07:00 IntakeIntake Total 200 ml BalanceBalance 200 ml KELI WILKINSON MD May 16, 2019 08:16
[2019-05-17] MEDS: LEVOFLOXACIN 500 MG TAB PO SCH (05:08)
[2019-05-17 07:29] VITALS: BP 131/72; PULSE 72; RESP 16
[2019-05-17] MEDS: THIAMINE 100 MG TAB PO SCH (08:22)
[2019-05-17] MEDS: FOLIC ACID 1 MG TAB PO SCH (08:22)
[2019-05-17] MEDS: FAMOTIDINE 20 MG TAB PO SCH ×2 (08:22→20:50)
[2019-05-17] MEDS: HEPARIN 5,000 UNIT/1 ML VIAL SC SCH ×2 (08:23→20:51)
[2019-05-17] MEDS: GUAIFENESIN/CODEINE 5ML CUP PO PRN ×3 (10:26→20:52)
[2019-05-17 13:51] VITALS: BP 116/69; PULSE 88; RESP 15
--- NOTE | 2019-05-17 16:12 | PN ---
Date/Time of Note Date/Time of Note DATE: 05/17/19 TIME: 16:10 Assessment/Plan VTE Prophylaxis Risk score (from Nsg)>0 risk: 1 SCD applied (from Nsg): Yes Pharmacological prophylaxis: heparin Lines/Catheters IV Catheter Type (from Nrsg): Peripheral IV Assessment/Plan Assessment/Plan 1. Abdominal pain, possible acute on chronic alcohol-induced pancreatitis versus gastritis related, pain control, PPI 2. COPD, exacerbation, neb prn, levaquin 3. History of moderate gastritis and esophagitis, PPI and carafate 4. Alcoholism, thiamine/folic acid, ativan prn 5. Tobacco dependence, declines patch 6. Deafness: Supportive care 7. Normocytic anemia, chronic, follow up with H/H 8. DVT prophylaxis: heparin 9. Discharge tomorrow if stable Result Diagram: 05/17/19 0454 05/17/19 0454 Results 24hrs Laboratory Tests Test 05/17/19 04:54 White Blood Count 7.5 # Red Blood Count 3.68 L Hemoglobin 9.3 L Hematocrit 31.2 L Mean Corpuscular Volume 84.8 Mean Corpuscular Hemoglobin 25.3 L Mean Corpuscular Hemoglobin Concent 29.8 L Red Cell Distribution Width 23.9 H Platelet Count 274 Mean Platelet Volume 10.4 Immature Granulocytes % 0.500 H Neutrophils % 74.6 Lymphocytes % 15.4 Monocytes % 6.3 Eosinophils % 2.7 Basophils % 0.5 Nucleated Red Blood Cells % 0.0 Immature Granulocytes # 0.040 H Neutrophils # 5.6 Lymphocytes # 1.2 Monocytes # 0.5 Eosinophils # 0.2 Basophils # 0.0 Nucleated Red Blood Cells # 0.0 Sodium Level 139 Potassium Level 3.6 Chloride Level 106 Carbon Dioxide Level 27 Anion Gap 6 Blood Urea Nitrogen 3 L Creatinine 0.47 Est Glomerular Filtrat Rate mL/min > 60 Glucose Level 76 # Calcium Level 8.3 L Phosphorus Level 3.3 Magnesium Level 1.5 L Subjective 24 Hr Interval Summary Free Text/Dictation less abdominal pain, tolerates diet. cough with greenish sputum Exam/Review of Systems Exam Vitals Vital Signs Date Temp Pulse Resp B/P (MAP) Pulse Ox O2 O2 Flow FiO2 Time Delivery Rate 05/17/19 98.4 88 15 116/69 92 Room Air 13:51 (85) 05/16/19 21 04:37 Intake and Output 05/16/19 05/16/19 05/17/19 1515:00 23:00 07:00 OutputOutput Total 400 ml BalanceBalance -400 ml Constitutional: alert, oriented, well developed Psych: no complaints, nl mood/affect Head: normocephalic, atraumatic Eyes: nl conjunctiva, EOMI, nl lids, PERRL ENMT: nl external ears & nose, nl lips & teeth, nl nasal mucosa & septum Neck: supple, non-tender Respiratory: clear to auscultation, normal air movement; No congested cough, No crackles/rales, No diminished breath sounds, No intercostal retraction, No labored breathing, No respirations, No tactile fremitus, No wheezing, No other Cardiovascular: regular rate and rhythm, nl pulses; No bruits, No diastolic murmur, No edema, No gallop, No irregular rhythm, No jugular venous distention (JVD), No murmurs/extra sounds, No rub, No systolic murmur, No S3, No S4, No other Gastrointestinal: soft, nl liver, spleen Musculoskeletal: nl extremities to inspection Extremities: normal pulses; No calf tenderness, No cyanosis, No clubbing, No edema, No pitting pedal edema, No palpable cord, No tenderness, No other Neurological: 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 SETTER II-XII intact, nl mental status, nl speech, nl strength Skin: nl turgor Results Results 24hrs Laboratory Tests Test 05/17/19 04:54 White Blood Count 7.5 # Red Blood Count 3.68 L Hemoglobin 9.3 L Hematocrit 31.2 L Mean Corpuscular Volume 84.8 Mean Corpuscular Hemoglobin 25.3 L Mean Corpuscular Hemoglobin Concent 29.8 L Red Cell Distribution Width 23.9 H Platelet Count 274 Mean Platelet Volume 10.4 Immature Granulocytes % 0.500 H Neutrophils % 74.6 Lymphocytes % 15.4 Monocytes % 6.3 Eosinophils % 2.7 Basophils % 0.5 Nucleated Red Blood Cells % 0.0 Immature Granulocytes # 0.040 H Neutrophils # 5.6 Lymphocytes # 1.2 Monocytes # 0.5 Eosinophils # 0.2 Basophils # 0.0 Nucleated Red Blood Cells # 0.0 Sodium Level 139 Potassium Level 3.6 Chloride Level 106 Carbon Dioxide Level 27 Anion Gap 6 Blood Urea Nitrogen 3 L Creatinine 0.47 Est Glomerular Filtrat Rate mL/min > 60 Glucose Level 76 # Calcium Level 8.3 L Phosphorus Level 3.3 Magnesium Level 1.5 L Medications Medication Current Medications IV Flush (NS 3 ml) 3 ml PER PROTOCOL IV ; Start 05/16/19 at 04:00 Ondansetron HCl (Zofran Inj) 4 mg Q6H PRN IV NAUSEA/VOMITING; Start 05/16/19 at 04:00 Acetaminophen (Tylenol Tab) 650 mg Q6H PRN PO .PAIN 1-3 OR TEMP Last administered on 05/16/19at 04:19; Admin Dose 650 MG; Start 05/16/19 at 04:00 Heparin Sodium (Porcine) (Heparin (5000 Units/1ml)) 5,000 unit Q12 SC Last administered on 05/17/19at 08:23; Admin Dose 5,000 UNIT; Start 05/16/19 at 09:00 Albuterol/ Ipratropium (Duoneb) 3 ml Q2H RESP THERAPY PRN HHN SHORTNESS OF BREATH Last administered on 05/17/19at 02:25; Admin Dose 3 ML; Start 05/16/19 at 04:00 Levofloxacin (Levaquin) 500 mg DAILY@06 PO Last administered on 05/17/19at 05:08; Admin Dose 500 MG; Start 05/16/19 at 12:30 Thiamine HCl (Vitamin B1) 100 mg DAILY PO Last administered on 05/17/19at 08:22; Admin Dose 100 MG; Start 05/17/19 at 09:00 Folic Acid (Folic Acid) 1 mg DAILY PO Last administered on 05/17/19at 08:22; Admin Dose 1 MG; Start 05/17/19 at 09:00 Lorazepam (Ativan) 0.5 mg Q8H PRN PO ANXIETY; Start 05/16/19 at 12:00 Acetaminophen/ Hydrocodone Bitart (Jet (5/325)) 1 tab Q6H PRN PO MODERATE PAIN LEVEL 4-6 Last administered on 05/17/19at 15:16; Admin Dose 1 TAB; Start 05/16/19 at 12:00 Guaifenesin/ Codeine Phosphate (Robitussin Ac Liquid Cup) 5 ml Q4H PRN PO cough Last administered on 05/17/19at 15:17; Admin Dose 5 ML; Start 05/16/19 at 15:30 Famotidine (Pepcid) 20 mg Q12 PO Last administered on 05/17/19at 08:22; Admin Dose 20 MG; Start 05/16/19 at 22:00 LINH GOLDMAN MD May 17, 2019 16:12
[2019-05-17] MEDS ORDERED: MAGNESIUM SULFATE 2 GM/50 ML 50 ML IVPB ONE (16:30)
[2019-05-17 20:00] VITALS: BP 141/73; PULSE 71; RESP 19
[2019-05-18 02:00] VITALS: BP 135/71; PULSE 86; RESP 20
[2019-05-18] MEDS: ALBUTEROL/IPRATROPIUM (NEB) 3 ML AMP HHN PRN (02:23)
[2019-05-18] MEDS: LEVOFLOXACIN 500 MG TAB PO SCH (05:09)
[2019-05-18 07:27] VITALS: BP 148/78; PULSE 78; RESP 18
[2019-05-18] MEDS: FOLIC ACID 1 MG TAB PO SCH (08:15)
[2019-05-18] MEDS: GUAIFENESIN/CODEINE 5ML CUP PO PRN (08:15)
[2019-05-18] MEDS: FAMOTIDINE 20 MG TAB PO SCH (08:15)
[2019-05-18] MEDS: HEPARIN 5,000 UNIT/1 ML VIAL SC SCH (08:16)
[2019-05-18] MEDS: THIAMINE 100 MG TAB PO SCH (08:16)
[2019-05-18] MEDS: HYDROCODONE/APAP (5/325) TAB PO PRN (09:47)
[2019-05-18 14:00] VITALS: BP 140/73; PULSE 66; RESP 18
[2019-05-18] MEDS ORDERED: LEVO500T48 PO (15:45)
--- NOTE | 2019-05-18 15:47 | DS ---
Date/Time of Note Date/Time of Note DATE: 05/18/19 TIME: 15:46 Discharge Summary Admission/Discharge Info Admit Date/Time May 16, 2019 at 01:15 Discharge Date/Time Discharge Diagnosis 1. Abdominal pain, possible acute on chronic alcohol-induced pancreatitis versus gastritis related, pain control, PPI 2. COPD, exacerbation, neb prn, levaquin 3. History of moderate gastritis and esophagitis, PPI 4. Alcoholism, no withdrawal 5. Tobacco dependence, advise to quit 6. Deafness 7. Normocytic anemia, chronic, follow up with PCP Patient Condition: Stable Hospital Course Patient is a 48-year-old deaf woman with a history of COPD, alcohol abuse, alcoholic pancreatitis, homelessness, medication noncompliance, COPD, GI bleed. Patient initially presented on outside hospital complaining of abdominal pain. She was transferred to [facility] for insurance reason. Her lipase was within normal limits in the 200s. Her last drink was yesterday (3 beers). She said a few days ago she was told that she had pneumonia. Reported cough productive of greenish sputum. Lipase is 76. Patient has history of gastritis. The abdominal pain may from acute on chronic pancreatitis or gastritis. I start her on pepcid and carafate, abdominal pain resolved. I will keep her on protonix on discharge. Patient is a smoker. She coughs with greenish sputum. CXR no pulmonary infiltrates. It is considered COPD exacerbation from smoking. she is advised to quit smoking, and she is put on neb prn with levaquin. Symptoms improved. She is discharged on 5 days of levaquin. Home Meds Active Scripts Pantoprazole (Protonix) 40 Mg Tabec, 40 MG PO DAILY for 30 Days, TAB Prov:LINH GOLDMAN MD 05/18/19 Levofloxacin* (Levaquin*) 500 Mg Tablet, 500 MG PO DAILY@06 for 5 Days, TAB Prov:LINH GOLDMAN MD 05/18/19 Reported Medications Albuterol Sulfate* (Proair HFA*) 8.5 Gm Hfa.aer.ad, 2 PUFF INH, #1 INHALER 04/26/19 Follow-up Plan PCP in one week Primary Care Provider [facility] Pending Labs Laboratory Tests Test 05/18/19 05:19 Sodium Level 141 mmol/L (135-144) Potassium Level 3.8 mmol/L (3.5-5.1) Chloride Level 104 mmol/L (97-110) Carbon Dioxide Level 29 mmol/L (21-31) Anion Gap 8 (5-13) Blood Urea Nitrogen 3 mg/dl (7-20) Creatinine 0.46 mg/dl (0.44-1.00) Est Glomerular Filtrat Rate mL/min > 60 mL/min (>60) Glucose Level 93 mg/dl (70-220) Calcium Level 8.9 mg/dl (8.4-10.2) Magnesium Level 1.6 mg/dl (1.7-2.5) LINH GOLDMAN MD May 18, 2019 15:47
[2019-05-18] MEDS ORDERED: PANT40TA4 PO (15:52)
== END 2019-05-18 17:12 | disposition home or self-care (01) | DRG 439 ==
LOC: 2NE 01:15 → 5EC 07:15
PROVIDERS: ADMIT Internal Medicine; ATTEND Internal Medicine
DX: K85.20 Alcohol induced acute pancreatitis without necrosis or infection (principal); J44.1 Chronic obstructive pulmonary disease with (acute) exacerbation; K86.0 Alcohol-induced chronic pancreatitis; K29.70 Gastritis, unspecified, without bleeding; K20.9 Esophagitis, unspecified; H91.90 Unspecified hearing loss, unspecified ear; F17.200 Nicotine dependence, unspecified, uncomplicated; F10.10 Alcohol abuse, uncomplicated; D64.9 Anemia, unspecified; Z59.0 Homelessness; Z91.14 Patient's other noncompliance with medication regimen
CPT/HCPCS: 71046; 80048; 80053; 83690; 83735; 84100; 85025; 94640; 94664; J1644; J3475; J7042

== ENCOUNTER 2019-05-25 14:39 | Inpatient (IN) | payer OTHER ==
[~2019-05-25] VITALS: Ht 165.1 cm; Wt 47.6 kg
[~2019-05-25 14:39] MED LIST changes: +LEVO500T48 PO; +PANT40TA4 PO
[2019-05-25 18:10] VITALS: BP 130/86; PULSE 73; RESP 18
[2019-05-25] MEDS ORDERED: NACL 0.9% 3 ML SYG IV SCH (18:30)
--- NOTE | 2019-05-25 18:30 | HP ---
Date/Time of Note Date/Time of Note DATE: 05/25/19 TIME: 18:27 Assessment/Plan VTE Prophylaxis SCD applied (from Ns): Yes Pharmacological prophylaxis: heparin Assessment/Plan Hospital Course Deafness evident Alert and oriented x3 Cranial nerves otherwise intact. no nystagmus Pleasant Regular r rate and rhythm Clear to auscultation Assessment and plan 48-year-old female with history of deafness who presents with vertigo and nausea for the past few days -Head CT has been normal at outside hospital and labs are unremarkable -Most concerning is this may be a posterior circulation stroke not seen on head CT. We will evaluate this further with an MRI -Patient can likely be discharged if MRI is normal and she feels well HPI/ROS Admit Date/Time Admit Date/Time May 25, 2019 at 17:38 Hx of Present Illness There is a 48-year-old female undomiciled who [facility] of headache and vertigo Patient is also deaf and the history was a bit difficult What I understand she has been suffering from vertigo for the past 2 days. She has had frequent vomiting spells He went to [place] [facility] 2 days ago had a head CT which was normal and she was sent home She came back very today with the same symptoms again had a head CT which was again nonacute. Given the persistence of her symptoms she is transferred here now for further evaluation ROS Constitutional: no complaints, improved Eyes: no complaints ENT: no complaints Respiratory: no complaints Cardiovascular: no complaints Gastrointestinal: no complaints Genitourinary: no complaints Musculoskeletal: no complaints Skin: no complaints Neurologic: no complaints Endocrine: no complaints Lymphatic: no complaints Psychological: no complaints, nl mood/affect Immunologic: no complaints PMH/Family/Social Past Medical History Deafness Medications Current Medications IV Flush (NS 3 ml) 3 ml PER PROTOCOL IV ; Start 05/25/19 at 18:30 Acetaminophen/ Hydrocodone Bitart ([place] (5/325)) 1 tab Q6H PRN PO .MOD PAIN 4- 6; Start 05/25/19 at 18:30 Enoxaparin Sodium (Lovenox) 30 mg DAILY SC ; Start 05/26/19 at 09:00; Status UNV Coded Allergies: Iodinated Contrast- Oral and IV Dye (Verified Allergy, Severe, SOB, 02/12/19) apple (Verified Allergy, Severe, ANALPHYLAXIS, 03/30/18) aspirin (Verified Allergy, Severe, RESP DISTRESS "IT ALMOST KILLED ME", 03/30/18) haloperidol (Verified Allergy, Intermediate, 03/30/18) Past Surgical History Past Surgical Hx: no surgical history, other Family History Significant Family History: no pertinent family hx Exam/Review of Systems Vital Signs Vitals Vital Signs Date Temp Pulse Resp B/P (MAP) Pulse Ox O2 O2 Flow FiO2 Time Delivery Rate 05/25/19 98.6 73 18 130/86 95 Room Air 18:10 (101) GILBERTO SAMANO MD May 25, 2019 18:30
[2019-05-25 19:30] VITALS: Ht 165.1 cm; Wt 47.6 kg
[2019-05-25 20:00] VITALS: BP 108/73; PULSE 71; RESP 19
[2019-05-25] MEDS: HYDROCODONE/APAP (5/325) TAB PO PRN (21:13)
[2019-05-25] MEDS ORDERED: ONDA4TAB95 PO (21:26)
[2019-05-25] MEDS ORDERED: PRED20TA PO (21:34)
[2019-05-25] MEDS ORDERED: CEPH500C PO (21:34)
[2019-05-25] MEDS ORDERED: LORAZEPAM 2 MG INJ IV PRN (23:00)
[2019-05-26 02:00] VITALS: BP 158/72; PULSE 60; RESP 19
[2019-05-26] MEDS: HYDROCODONE/APAP (5/325) TAB PO PRN ×3 (05:00→20:34)
[2019-05-26 08:00] VITALS: BP 139/67; PULSE 82; RESP 20
[2019-05-26] MEDS: ENOXAPARIN 30 MG/0.3 ML SYG SC SCH (09:00)
[2019-05-26 14:00] VITALS: BP 116/59; PULSE 76; RESP 20
--- NOTE | 2019-05-26 19:43 | PN ---
Date/Time of Note Date/Time of Note DATE: 05/26/19 TIME: 19:42 Assessment/Plan VTE Prophylaxis Risk score (from Ns)>0 risk: 1 SCD applied (from Ns): Yes SCD contraindicated: low risk/ambulating Pharmacological prophylaxis: NA/contraindicated Pharm contraindication: low risk/ambulating Lines/Catheters IV Catheter Type (from [facility]): Peripheral IV Urinary Cath still in place: No Assessment/Plan Hospital Course Assessment and plan 1. Dizziness nausea unknown etiology. Possible positional vertigo. Stable check MRI 2. COPD emphysema 3. Past tobacco? 4. Headaches in childhood/migraines? Subjective: Dizziness without any known aggravating or relieving factors. No loss of speech vision focal deficits or fever. No nausea vomiting. Presently resolved. Objective: Vital signs stable Physical exam No pallor droop c bruits reg ctab benign no edema non focal Result Diagram: 05/26/1944605/26/19446 Results 24hrs Laboratory Tests Test 05/26/19 04:47 White Blood Count 6.4 Red Blood Count 3.64 L Hemoglobin 9.1 L Hematocrit 31.6 L Mean Corpuscular Volume 86.8 Mean Corpuscular Hemoglobin 25.0 L Mean Corpuscular Hemoglobin Concent 28.8 L Red Cell Distribution Width 25.2 H Platelet Count 333 Mean Platelet Volume 10.2 Immature Granulocytes % 0.200 Neutrophils % 56.6 Lymphocytes % 33.9 Monocytes % 6.8 Eosinophils % 0.8 Basophils % 1.7 Nucleated Red Blood Cells % 0.3 H Immature Granulocytes # 0.010 Neutrophils # 3.6 Lymphocytes # 2.2 Monocytes # 0.4 Eosinophils # 0.1 Basophils # 0.1 Nucleated Red Blood Cells # 0.0 Sodium Level 141 Potassium Level 3.8 Chloride Level 110 Carbon Dioxide Level 24 Anion Gap 7 Blood Urea Nitrogen 8 Creatinine 0.56 Est Glomerular Filtrat Rate mL/min > 60 Glucose Level 82 Hemoglobin A1c 5.0 Calcium Level 8.6 Total Bilirubin 0.5 Direct Bilirubin 0.00 Indirect Bilirubin 0.5 Aspartate Amino Transf (AST/SGOT) 39 Alanine Aminotransferase (ALT/SGPT) 28 Alkaline Phosphatase 95 Total Protein 6.1 Albumin 3.0 L Globulin 3.10 Albumin/Globulin Ratio 0.96 Exam/Review of Systems Exam Vitals Vital Signs Date Temp Pulse Resp B/P (MAP) Pulse Ox O2 O2 Flow FiO2 Time Delivery Rate 05/26/19 98.8 76 20 116/59 96 14:00 (78) 05/25/19 Room Air 18:10 Results Results 24hrs Laboratory Tests Test 05/26/19 04:47 White Blood Count 6.4 Red Blood Count 3.64 L Hemoglobin 9.1 L Hematocrit 31.6 L Mean Corpuscular Volume 86.8 Mean Corpuscular Hemoglobin 25.0 L Mean Corpuscular Hemoglobin Concent 28.8 L Red Cell Distribution Width 25.2 H Platelet Count 333 Mean Platelet Volume 10.2 Immature Granulocytes % 0.200 Neutrophils % 56.6 Lymphocytes % 33.9 Monocytes % 6.8 Eosinophils % 0.8 Basophils % 1.7 Nucleated Red Blood Cells % 0.3 H Immature Granulocytes # 0.010 Neutrophils # 3.6 Lymphocytes # 2.2 Monocytes # 0.4 Eosinophils # 0.1 Basophils # 0.1 Nucleated Red Blood Cells # 0.0 Sodium Level 141 Potassium Level 3.8 Chloride Level 110 Carbon Dioxide Level 24 Anion Gap 7 Blood Urea Nitrogen 8 Creatinine 0.56 Est Glomerular Filtrat Rate mL/min > 60 Glucose Level 82 Hemoglobin A1c 5.0 Calcium Level 8.6 Total Bilirubin 0.5 Direct Bilirubin 0.00 Indirect Bilirubin 0.5 Aspartate Amino Transf (AST/SGOT) 39 Alanine Aminotransferase (ALT/SGPT) 28 Alkaline Phosphatase 95 Total Protein 6.1 Albumin 3.0 L Globulin 3.10 Albumin/Globulin Ratio 0.96 Medications Medication Current Medications IV Flush (NS 3 ml) 3 ml PER PROTOCOL IV ; Start 05/25/19 at 18:30 Acetaminophen/ Hydrocodone Bitart ([place] (5/325)) 1 tab Q6H PRN PO .MOD PAIN 4- 6 Last administered on 05/26/19at 11:40; Admin Dose 1 TAB; Start 05/25/19 at 18:30 Enoxaparin Sodium (Lovenox) 30 mg DAILY SC ; Start 05/26/19 at 09:00 Miscellaneous Information Patients own medicat... BID@10,16 XX ; Start 05/26/19 at 10:00 Lorazepam (Ativan) 0.5 mg ONCE PRN IV ANXIETY Last administered on 05/26/19at 14:43; Admin Dose 0.5 MG; Start 05/25/19 at 23:00; Stop 05/26/19 at 22:59 JAVON CAMILO MD May 26, 2019 19:43
[2019-05-26] MEDS ORDERED: ALBUTEROL HFA 8 GM INHALER INH PRN (20:00)
[2019-05-26 20:08] VITALS: BP 148/83; PULSE 76; RESP 17
[2019-05-27 02:00] VITALS: BP 128/77; PULSE 60; RESP 16
[2019-05-27 08:00] VITALS: BP 162/66; PULSE 76; RESP 18
[2019-05-27] MEDS: ENOXAPARIN 30 MG/0.3 ML SYG SC SCH (09:17)
--- NOTE | 2019-05-28 14:40 | DS ---
Date/Time of Note Date/Time of Note DATE: 05/28/19 TIME: 14:38 Discharge Summary Admission/Discharge Info Admit Date/Time May 25, 2019 at 17:38 Discharge Date/Time May 27, 2019 at 12:16 Patient Condition: Fair Procedures MRI brain IMPRESSION: 1. No cerebral infarction, mass, hemorrhage, or hydrocephalus. 2. Minimal age-related microvascular change. Hx of Present Illness With vertigo nausea Hospital Course Hospital course assessment and plan 1. Dizziness nausea unknown etiology. Possible positional vertigo. Stable MRI negative. Patient left AMA 2. COPD emphysema 3. Past tobacco? 4. Headaches in childhood/migraines? S: 05/26 Dizziness without any known aggravating or relieving factors. No loss of speech vision focal deficits or fever. No nausea vomiting. Presently resolved. 05/27: Left AMA Home Meds Active Scripts Pantoprazole (Protonix) 40 Mg Tabec, 40 MG PO DAILY for 30 Days, TAB Prov:LINH GOLDMAN MD 05/18/19 Levofloxacin* (Levaquin*) 500 Mg Tablet, 500 MG PO DAILY@06 for 5 Days, TAB Prov:LINH GOLDMAN MD 05/18/19 Reported Medications Cephalexin* (Cephalexin*) 500 Mg Capsule, 500 MG PO BID, #21 CAP 05/25/19 Prednisone* (Prednisone*) 20 Mg Tab, 40 MG PO DAILY, TAB 05/25/19 Ondansetron Hcl* (Ondansetron Hcl*) 4 Mg Tablet, 4 MG PO Q6H PRN for NAUSEA, TAB 05/25/19 Albuterol Sulfate* (Proair HFA*) 8.5 Gm Hfa.aer.ad, 2 PUFF INH, #1 INHALER 04/26/19 Primary Care Provider [facility] Time spent on discharge: < 30 minutes JAVON CAMILO MD May 28, 2019 14:40
== END 2019-05-27 12:16 | disposition left against medical advice (07) | DRG 149 ==
LOC: PP2 17:38
PROVIDERS: ADMIT Internal Medicine; ATTEND Internal Medicine
DX: H81.10 Benign paroxysmal vertigo, unspecified ear (principal); J43.9 Emphysema, unspecified; H91.90 Unspecified hearing loss, unspecified ear; R11.0 Nausea; Z53.21 Procedure and treatment not carried out due to patient leaving prior to being seen by health care provider
CPT/HCPCS: 70551; 80053; 83036; 83735; 84100; 84443; 84484; 84703; 85025; J1650; J2060

== ENCOUNTER 2019-06-07 10:51 | Observation (INO) | payer OTHER ==
[~2019-06-07] VITALS: Ht 165.1 cm; Wt 43.0 kg
[~2019-06-07 10:51] MED LIST changes: +CEPH500C PO; +CLIN300C10 PO; +Docusate Sodium PO; +FAMO20TA18 PO; +FLUC200T52 PO; +HYDR-3601 PO; +LACT1CAP57 PO; +LEVO500T10 PO; +MICO45CR10 VAG; +ONDA4TAB95 PO; +PRED20TA PO
--- NOTE | 2019-06-07 11:25 | EN ---
Date/Time of Note Date/Time of Note DATE: 06/07/19 TIME: 11:23 ER Progress Note 48-year-old female transferred from [facility] where she had a presumptive diagnosis of COPD with atypical chest pain. Patient was received in transfer pending bed availability in the hospital. Medical screening examination shows the patient to be in stable condition. I reviewed her diagnostic tests from the outside facility. Case management was asked to get involved pending bed availability and will be seeing the patient in the emergency room. At this time patient shows no evidence of significant wheezing or shortness of breath. No ongoing chest pain. HORACE ADAME Jun 07, 2019 11:25
[2019-06-07] MEDS ORDERED: ACETAMINOPHEN 325 MG TAB PO PRN ×2 (12:30→22:30)
[2019-06-07] MEDS ORDERED: ONDANSETRON 4 MG INJ IV PRN ×2 (12:30→15:00)
[2019-06-07] MEDS ORDERED: IBUPROFEN 600 MG TAB PO PRN (13:30)
[2019-06-07] MEDS ORDERED: MAGNESIUM SULFATE 2 GM/50 ML 50 ML IVPB ONE (15:00)
[2019-06-07] MEDS ORDERED: HYDROCODONE/APAP (5/325) TAB PO PRN (15:00)
[2019-06-07] MEDS ORDERED: FAMOTIDINE 20 MG INJ IV ONE (15:00)
[2019-06-07] MEDS ORDERED: morphine 2 MG INJ IV PRN ×2 (15:00→22:30)
--- NOTE | 2019-06-07 15:19 | HP ---
Date/Time of Note Date/Time of Note DATE: 06/07/19 TIME: 15:18 Assessment/Plan VTE Prophylaxis Pharmacological prophylaxis: NA/contraindicated Pharm contraindication: low risk/ambulating Assessment/Plan Hospital Course 48-year-old severely hard of hearing female with a history of COPD who had gone to outside emergency room with left-sided chest pain and now complaining of posterior buttock rash with associated pain currently managed as follows: 1. Chest pain rule out acute coronary syndrome -Patient has no significant risk factors other than substance use for ACS, she has been here a few times that has been ruled out multiple times, 2D echo from prior visits were reviewed without significant abnormalities, complete 3 cardiac enzymes. 2. Buttock rash with associated pain, this does not look overtly like herpes, rash is punctate, maculopapular on an erythematous base.. It could be an inflammatory dermatitis, will begin empiric antibiotics, supportive care and pain control. Do not think it infectious at this time, but to be on the safe side put patient on isolation precaution 3. Substance use with amphetamine: Cessation counseling 4. Chronic depression 5. Hypomagnesemia 6. Rule out urinary tract infection 7. Hard of hearing Disposition plan of care has been discussed in detail with patient, questions have been answered Results 24hrs Laboratory Tests Test 06/07/19 11:14 06/07/19 13:16 Urine Color YELLOW Urine Clarity SLIGHTLY CLOUDY A Urine pH 6.0 Urine Specific [place] 1.013 Urine Ketones NEGATIVE Urine Nitrite NEGATIVE Urine Bilirubin NEGATIVE Urine Urobilinogen NEGATIVE Urine Leukocyte Esterase TRACE A Urine Microscopic RBC 2 Urine Microscopic WBC 7 H Urine Squamous Epithelial Cells FEW Urine Bacteria FEW A Urine Hemoglobin 1+ H Urine Glucose NEGATIVE Urine Total Protein NEGATIVE Urine Opiates Screen Negative Urine Barbiturates Negative Urine Amphetamines Screen Positive Urine Benzodiazepines Screen Negative Urine Cocaine Screen Negative Urine Cannabinoids Negative Phosphorus Level 4.2 Magnesium Level 1.2 L Lipase 221 HPI/ROS Admit Date/Time Admit Date/Time Hx of Present Illness 48-year-old deaf lady with past medical history of COPD substance and alcohol abuse, depression, gastritis and alcoholinduced pancreatitis who was sent from outside ER for admission after she had gone there for L sided chest pain / epigastric pain with nausea and vomiting. Also with a bad rash around her rectum that is causing her significant pain that started 1 day ago. She denies fever, denies shortness of breath, she has had some tenderness numbness, but denies blood in her stools, denies dysuria, denies hematuria. ROS 12 point review if systems was done and pertinent findings are as noted. PMH/Family/Social Past Medical History Medications Current Medications Acetaminophen (Tylenol Tab) 650 mg ER BRIDGE PRN PO .MILD PAIN 1-3 OR TEMP Last administered on 06/07/19at 13:11; Admin Dose 650 MG; Start 06/07/19 at 12:30; Stop 06/08/19 at 12:29 Ibuprofen (Motrin) 600 mg Q8H PRN PO PAIN LEVEL 4-7; Start 06/07/19 at 13:30 Famotidine (Pepcid) 20 mg BID PO ; Start 06/07/19 at 21:00 Morphine Sulfate (morphine) 2 mg Q4H PRN IV SEVERE PAIN LEVEL 7-10; Start 06/07/19 at 15:00 Ondansetron HCl (Zofran Inj) 4 mg Q6H PRN IV NAUSEA AND/OR VOMITING; Start 06/07/19 at 15:00 Acetaminophen/ Hydrocodone Bitart (Gardiner (5/325)) 1 tab Q6H PRN PO MODERATE PAIN LEVEL 4-6; Start 06/07/19 at 15:00 Magnesium Sulfate 50 ml @ 25 mls/hr ONCE ONCE IVPB ; Start 06/07/19 at 15:00; Stop 06/07/19 at 16:59 Coded Allergies: Iodinated Contrast- Oral and IV Dye (Unverified Allergy, Severe, SOB, 06/07/19) apple (Unverified Allergy, Severe, ANALPHYLAXIS, 06/07/19) aspirin (Unverified Allergy, Severe, RESP DISTRESS "IT ALMOST KILLED ME", 06/07/19) haloperidol (Unverified Allergy, Intermediate, 06/07/19) Past Surgical History Past Surgical Hx: no surgical history, other Family History Significant Family History: no pertinent family hx Social History Smoking Status: Current every day smoker Exam/Review of Systems Vital Signs Vitals Vital Signs Date Temp Pulse Resp B/P (MAP) Pulse Ox O2 O2 Flow FiO2 Time Delivery Rate 06/07/19 98.6 93 18 142/90 98 10:55 (107) Exam Constitutional: alert, distress Psych: anxiety Head: normocephalic Eyes: PERRL; No icteric ENMT: mucosa pink and moist Neck: supple, non-tender Respiratory: clear to auscultation, normal air movement Cardiovascular: regular rate and rhythm, nl pulses Gastrointestinal: soft, non-tender, bowel sounds Extremities: No edema Skin: rash or lesions BONNIE STARK Jun 07, 2019 15:19
[2019-06-07] MEDS ORDERED: ALBUTEROL/IPRATROPIUM (NEB) 3 ML AMP HHN STA (15:26)
[2019-06-07] MEDS ORDERED: VANCOMYCIN IV PER PHARMACY XX SCH (15:30)
[2019-06-07] MEDS: DOCUSATE SODIUM 250 MG CAP PO SCH (15:30)
[2019-06-07] MEDS ORDERED: ALBUTEROL/IPRATROPIUM (NEB) 3 ML AMP HHN PRN (15:30)
[2019-06-07] MEDS: LEVOFLOXACIN 500MG/D5W (PMX) 100 ML IVPB SCH (16:50)
[2019-06-07] MEDS ORDERED: VANCOMYCIN 1 GM in 250 ML IVPB ONE (17:00)
[2019-06-07] MEDS ORDERED: DIPHENHYDRAMINE 50 MG INJ IV STA (17:18)
[2019-06-07] MEDS ORDERED: BUDESONIDE (NEB) 0.25 MG/2 ML AMP HHN SCH (20:00)
[2019-06-07 20:54] VITALS: BP 154/77; PULSE 88; RESP 18
[2019-06-07 21:00] VITALS: Ht 165.1 cm; Wt 43.0 kg
[2019-06-07] MEDS ORDERED: NACL 0.9% 3 ML SYG IV SCH (22:30)
[2019-06-07] MEDS ORDERED: NITROGLYCERIN (SL) 0.4 MG TAB SL PRN (22:30)
[2019-06-07] MEDS ORDERED: BISACODYL (EC) 5 MG TAB PO PRN (22:30)
[2019-06-07] MEDS ORDERED: DOCUSATE SODIUM 100 MG CAP PO PRN (22:30)
[2019-06-07] MEDS: FAMOTIDINE 20 MG TAB PO SCH (23:08)
[2019-06-08 00:40] VITALS: BP 137/77; PULSE 145; RESP 20
[2019-06-08] MEDS: VANCOMYCIN 750 MG (PMX) 250 ML IVPB SCH ×2 (02:00→13:35)
[2019-06-08 04:00] VITALS: BP 127/69; PULSE 79; RESP 20
[2019-06-08] MEDS ORDERED: PENDING SANTYL ORDER FOR WOUND CARE XX PRN (04:30)
[2019-06-08 07:26] VITALS: BP 137/74; PULSE 82; RESP 18
[2019-06-08] MEDS ORDERED: MAGNESIUM SULFATE 3 GM in DEXTROSE 5% 100 ML IVPB ONE (07:30)
[2019-06-08] MEDS ORDERED: POTASSIUM CHLORIDE (SR) 20 MEQ TAB PO ONE (07:30)
[2019-06-08] MEDS: FAMOTIDINE 20 MG TAB PO SCH (08:23)
[2019-06-08] MEDS: DOCUSATE SODIUM 250 MG CAP PO SCH (08:24)
[2019-06-08 11:23] VITALS: BP 125/71; PULSE 72; RESP 18
[2019-06-08] MEDS: POTASSIUM CHLORIDE (SR) 20 MEQ TAB PO SCH ×2 (13:35→15:12)
--- NOTE | 2019-06-08 13:47 | DS ---
Date/Time of Note Date/Time of Note DATE: 06/08/19 TIME: 13:40 Discharge Summary Admission/Discharge Info Admit Date/Time Jun 07, 2019 at 12:20 Discharge Date/Time Discharge Diagnosis 48-year-old female with a history of COPD who had gone to outside emergency room with left-sided chest pain and now complaining of posterior buttock rash with associated pain who was managed as follows: 1. Chest pain: resolved, ACS ruled out. 2. Inflammatory dermatitis with beverley vulvitis : complete abx as outpatient 3. Substance use with amphetamine: Cessation counseling 4. Chronic depression 5. urinary tract infection 6. Hard of hearing : severely . Patient Condition: Stable Hx of Present Illness Per admission notes : 48-year-old deaf lady with past medical history of COPD substance and alcohol abuse, depression, gastritis and alcoholinduced pancreatitis who was sent from outside ER for admission after she had gone there for L sided chest pain / epig astric pain with nausea and vomiting. Also with a bad rash around her rectum that is causing her significant pain that started 1 day ago. She denies fever, denies shortness of breath, she has had some tenderness numbness, but denies blood in her stools, denies dysuria, denies hematuria. . Hospital Course 48-year-old female who was sent to us from outside hospital with complaints of left-sided chest pain and buttock pain and rash rash is likely inflammatory dermatitis likely bacterial superimposed on fungal, patient is already improving with antibiotics and antifungal treatment. Patient having a lot of pain from that however so she is requiring pain medicine. At this time chest pain is resolved, patient has ruled out for an acute coronary syndrome, no significant abnormalities on recent echo. She is stable for discharge. She is to continue all other previous medications for other comorbidities. . Home Meds Discontinued Reported Medications Cephalexin* (Cephalexin*) 500 Mg Capsule, 500 MG PO BID, #21 CAP 05/25/19 Prednisone* (Prednisone*) 20 Mg Tab, 40 MG PO DAILY, TAB 05/25/19 Ondansetron Hcl* (Ondansetron Hcl*) 4 Mg Tablet, 4 MG PO Q6H PRN for NAUSEA, TAB 05/25/19 Albuterol Sulfate* (Proair HFA*) 8.5 Gm Hfa.aer.ad, 2 PUFF INH, #1 INHALER 04/26/19 Discontinued Scripts Pantoprazole (Protonix) 40 Mg Tabec, 40 MG PO DAILY for 30 Days, TAB Prov:LINH GOLDMAN MD 05/18/19 Levofloxacin* (Levaquin*) 500 Mg Tablet, 500 MG PO DAILY@06 for 5 Days, TAB Prov:LINH GOLDMAN MD 05/18/19 Follow-up Plan Followup with your primary doctor within the next 1-2 weeks. If you don't have one please let someone know, we can give you resources that may help you pick one. You may call Dr Raymond Vazquez's office. he's accepting new patients Name, Degree: Raymond Vazquez MD Specialty: Internal Medicine Comments: Office Address: [address] [place] [address] Office Office You may also call your insurance company to assign one to you. Review your medication list with your nurse before leaving and if you need new prescriptions please let your nurse know. I may have made changes to your home medications or given you new prescriptions, please let your primary doctor know as well. Stay compliant with your medications and report any side effects to your PCP or pharmacist. Return to the ER if you have any concerns and cannot reach your doctors or call your insurance company, they usually have a nurse that can help you. . Primary Care Provider [facility] Time spent on discharge: > 30 minutes Pending Labs Laboratory Tests Test 06/07/19 22:55 06/08/19 06:10 06/08/19 06:11 Creatine Kinase 70 IU/L (23-200) 65 IU/L (23-200) Creatine Kinase 2.2 2.5 Index Creatinine Kinase 1.53 1.61 MB (Mass) ng/ml (0.0-2.4) ng/ml (0.0-2.4) Troponin I < 0.012 < 0.012 ng/ml (0.000-0.120) ng/ml (0.000-0.120 ) White Blood Count 5.5 10^3/ul (4.8-10.8) Red Blood Count 3.81 10^6/ul (4.20-5.40 ) Hemoglobin 9.4 g/dl (12.0-16.0) Hematocrit 32.2 % (37.0-47.0) Mean Corpuscular 84.5 Volume fl (82.0-101.0) Mean Corpuscular 24.7 Hemoglobin pg (29.0-33.0) Mean Corpuscular 29.2 Hemoglobin Concent g/dl (32.0-37.0) Red Cell 24.3 % (11.5-14.5) Distribution Width Platelet Count 168 10^3/UL (140-415) Mean Platelet 9.9 fl (7.4-10.4) Volume Immature 0.500 Granulocytes % % (0.001-0.429) Neutrophils % 61.2 % (39.0-77.0) Lymphocytes % 28.5 % (15.0-51.0) Monocytes % 6.5 % (0.0-11.0) Eosinophils % 1.8 % (0.0-7.0) Basophils % 1.5 % (0.0-2.0) Nucleated Red Blood 0.0 Cells % /100WBC (0.0-0.0) Immature 0.030 Granulocytes # 10^3/ul (0.0-0.031 ) Neutrophils # 3.4 10^3/ul (1.6-7.5) Lymphocytes # 1.6 10^3/ul (0.8-2.9) Monocytes # 0.4 10^3/ul (0.3-0.9) Eosinophils # 0.1 10^3/ul (0.0-0.5) Basophils # 0.1 10^3/ul (0.0-0.1) Nucleated Red Blood 0.0 Cells # 10^3/ul (0.0-0.0) Sodium Level 135 mmol/L (135-144) Potassium Level 3.0 mmol/L (3.5-5.1) Chloride Level 101 mmol/L (97-110) Carbon Dioxide 31 mmol/L (21-31) Level Anion Gap 3 (5-13) Blood Urea Nitrogen 6 mg/dl (7-20) Creatinine 0.52 mg/dl (0.44-1.00) Est Glomerular > 60 mL/min (>60) Filtrat Rate mL/min Glucose Level 67 mg/dl (70-220) Hemoglobin A1c 5.0 % (0-5.9) Calcium Level 8.2 mg/dl (8.4-10.2) Total Bilirubin 0.7 mg/dl (0.2-1.3) Direct Bilirubin 0.00 mg/dl (0.00-0.20) Indirect Bilirubin 0.7 mg/dl (0-1.1) Aspartate Amino 58 IU/L (15-46) Transf (AST/SGOT) Alanine 41 IU/L (13-69) Aminotransferase (A LT/SGPT) Alkaline 83 IU/L (42-121) Phosphatase Total Protein 6.1 g/dl (6.1-8.1) Albumin 3.0 g/dl (3.3-4.9) Globulin 3.10 g/dl (1.3-3.2) Albumin/Globulin 0.96 Ratio Magnesium Level 1.9 mg/dl (1.7-2.5) Triglycerides 47 mg/dl (0-149) Level Cholesterol Level 136 mg/dl (100-200) LDL Cholesterol, 49 mg/dl Calculated HDL Cholesterol 78 mg/dl (34-88) Cholesterol/HDL 1.7 RATIO Ratio Thyroid Stimulating 3.450 Hormone (TSH) MIU/L (0.465-4.680 ) BONNIE STARK Jun 08, 2019 13:47
--- NOTE | 2019-06-08 13:54 | PDOCDIS ---
Discharge Instructions CONDITION [id number] Patient Condition: [id number] Stable HOME CARE INSTRUCTIONS: [id number] Diet Instructions: [id number] Low Fat /Cholesterol ACTIVITY: [id number] Activity Restrictions: [id number] Slowly Increase Activity Rest between Activity FOLLOW UP/APPOINTMENTS Follow-up Plan Followup with your primary doctor within the next 1-2 weeks. If you don't have one please let someone know, we can give you resources that may help you pick one. You may call Dr Raymond Vazquez's office. he's accepting new patients Name, Degree: Raymond Vazquez MD Specialty: Internal Medicine Comments: Office Address: [address] [place] [address] [place] [id number] Office Office You may also call your insurance company to assign one to you. Review your medication list with your nurse before leaving and if you need new prescriptions please let your nurse know. I may have made changes to your home medications or given you new prescriptions, please let your primary doctor know as well. Stay compliant with your medications and report any side effects to your PCP or pharmacist. Return to the ER if you have any concerns and cannot reach your doctors or call your insurance company, they usually have a nurse that can help you. . BONNIE STARK Jun 08, 2019 13:54
[2019-06-08] MEDS ORDERED: MICONAZOLE 2% 45 GM VAG CR VAG SCH (15:00)
[2019-06-08 15:15] VITALS: BP 130/85; PULSE 66; RESP 18
[2019-06-08] MEDS: LEVOFLOXACIN 500MG/D5W (PMX) 100 ML IVPB SCH (15:33)
[2019-06-08] MEDS ORDERED: VANCOMYCIN 750 MG (PMX) 250 ML IVPB SCH (21:00)
== END 2019-06-08 18:45 | disposition home or self-care (01) ==
LOC: E/R 10:51 → 2NE 12:20 → SUATTDRO 12:59 → PP2 20:46 → TEL 06-08 00:41
PROVIDERS: ADMIT Family Medicine; ATTEND Family Medicine
DX: R07.9 Chest pain, unspecified (principal); F15.10 Other stimulant abuse, uncomplicated; F32.9 Major depressive disorder, single episode, unspecified; E83.42 Hypomagnesemia; L30.9 Dermatitis, unspecified; B37.3 Candidiasis of vulva and vagina; N39.0 Urinary tract infection, site not specified; H91.90 Unspecified hearing loss, unspecified ear
CPT/HCPCS: 80053; 80061; 80307; 81001; 82550; 82553; 83036; 83690; 83735; 84100; 84443; 84484; 85025; 94664; J1200; J1956; J2270; J2405; J3370; J3475; Z7500; Z7610; G0378

== ENCOUNTER 2019-08-31 14:19 | Inpatient (IN) | payer OTHER ==
[~2019-08-31] VITALS: Ht 165.1 cm; Wt 54.4 kg
[~2019-08-31 14:19] MED LIST changes: -ALBU8.5H8 INH; -CEPH500C PO; -LEVO500T48 PO; -ONDA4TAB95 PO; -PANT40TA4 PO; -PRED20TA PO
[2019-08-31 17:47] VITALS: BP 137/84; PULSE 75; RESP 17
[2019-08-31 18:16] VITALS: Ht 165.1 cm; Wt 54.4 kg
[2019-08-31 20:00] VITALS: BP 123/83; PULSE 75; RESP 18
[2019-08-31] MEDS ORDERED: ACETAMINOPHEN 325 MG TAB PO PRN (20:00)
[2019-08-31] MEDS ORDERED: DOCUSATE SODIUM 100 MG CAP PO PRN (20:00)
[2019-08-31] MEDS ORDERED: MAGNESIUM HYDROXIDE 30ML CUP PO PRN (20:00)
[2019-08-31] MEDS ORDERED: ONDANSETRON 4 MG INJ IV PRN (20:00)
[2019-08-31] MEDS ORDERED: NACL 0.9% 3 ML SYG IV SCH (20:00)
[2019-08-31] MEDS ORDERED: morphine 2 MG INJ IV PRN (20:00)
[2019-08-31] MEDS ORDERED: LORAZEPAM 2 MG INJ IV PRN (20:00)
[2019-08-31] MEDS ORDERED: MULTIVITAMINS 10 ML, THIAMINE 100 MG, FOLIC ACID 1 MG in SOD CHLORIDE 0.9% 1,000 ML IVPB SCH (20:00)
[2019-08-31] MEDS ORDERED: HYDROCODONE/APAP (5/325) TAB PO PRN (20:00)
[2019-08-31] MEDS ORDERED: CHLORDIAZEPOXIDE 25 MG CAP PO SCH (21:00)
[2019-08-31] MEDS: SOD CHLORIDE 0.9% 1,000 ML IV SCH (21:30)
[2019-09-01 02:00] VITALS: BP 124/73; PULSE 61; RESP 18
[2019-09-01] MEDS ORDERED: PANTOPRAZOLE (EC) 40 MG TAB PO SCH (06:00)
[2019-09-01] MEDS: SOD CHLORIDE 0.9% 1,000 ML IV SCH (08:51)
[2019-09-01] MEDS ORDERED: DOCUSATE SODIUM 250 MG PO SCH (09:00)
[2019-09-01] MEDS ORDERED: FAMOTIDINE 20 MG TAB PO SCH (09:00)
[2019-09-01] MEDS ORDERED: ENOXAPARIN 40 MG/0.4 ML SYG SC SCH (09:00)
[2019-09-01] MEDS ORDERED: DOCUSATE SODIUM 250 MG CAP PO SCH (09:00)
== END 2019-09-01 09:10 | disposition left against medical advice (07) | DRG 440 ==
LOC: MS3 17:35
PROVIDERS: ADMIT Internal Medicine; ATTEND Internal Medicine
DX: K85.20 Alcohol induced acute pancreatitis without necrosis or infection (principal); K86.0 Alcohol-induced chronic pancreatitis; F32.9 Major depressive disorder, single episode, unspecified; J44.9 Chronic obstructive pulmonary disease, unspecified; K29.70 Gastritis, unspecified, without bleeding; Z59.0 Homelessness; H91.3 Deaf nonspeaking, not elsewhere classified; Z72.0 Tobacco use
CPT/HCPCS: 97166; J2060; J2270; J3411; J7030